=== PATIENT | female | born 1960 | race Caucasian/White ===

== ENCOUNTER 2019-12-27 08:30 | Outpatient (REF) | payer OTHER, SELFPAY | END 2019-12-27 08:31 | disposition home or self-care (01) | LOC: HO.LAB 08:30 | PROVIDERS: PCP Internal Medicine; Visit Provider Internal Medicine | DX: Z20.828 Contact with and (suspected) exposure to other viral communicable diseases (principal) | CPT/HCPCS: C9803; U0003 ==

== ENCOUNTER → 2020-01-03 07:47 | Outpatient (REF) | payer OTHER, SELFPAY ==
--- NOTE | 2020-01-03 | CA_ITS ---
Acquisition Time: 2020-01-03 09:20:28 Total Exercise Time: 00:08:03 Test Indications: CP Medications: SEE CHART Protocol: MEMO Max HR: 139 BPM 86% of Pred: 161 BPM Max BP: 138/082 mmHG Max Work Load: 10.1 METS Exercise stress test using Memo protocol. total of 8 min 3 sec. METS10.1, MHR up to 86 %. Pt tolerated well. Denies any anginal sx. EKG without any arrhythmias, no ischemic changes seen during exercise or in recovery period. Normotensive response to exercise, Test reviewed with Dr. Hood. Referred By: Jenny Mcbride Overread By: Felicity Giraldo
== END ==
LOC: HO.CARD 07:47
PROVIDERS: PCP Internal Medicine; Visit Provider Nurse Practitioner Family
DX: R07.89 Other chest pain (principal)
CPT/HCPCS: 93017

== ENCOUNTER 2020-05-10 09:45 | Outpatient (REF) | payer OTHER, SELFPAY ==
[2020-05-10 14:24] LABS: SARS COV2 PCR INHOUSE POSITIVE (Negative)
== END 2020-05-10 09:46 | disposition home or self-care (01) ==
LOC: HO.LAB 09:45
PROVIDERS: Visit Provider Internal Medicine
DX: Z20.822 Contact with and (suspected) exposure to COVID-19 (principal)
CPT/HCPCS: C9803; U0003

== ENCOUNTER → 2020-09-16 13:00 | Outpatient (BNVA) | payer OTHER, SELFPAY | PROVIDERS: Visit Provider Orthopaedic Surgery ==

== ENCOUNTER 2020-11-26 13:30 | Outpatient (RCR) | payer OTHER, SELFPAY | END 2020-12-20 11:44 | disposition home or self-care (01) | LOC: HO.OT 13:30 | PROVIDERS: Visit Provider Nurse Practitioner Family | DX: M79.642 Pain in left hand (principal); M79.641 Pain in right hand; M77.8 Other enthesopathies, not elsewhere classified | CPT/HCPCS: 97035; 97110; 97140; 97165 ==

== ENCOUNTER 2021-07-29 09:40 | Day surgery (SDC) | payer OTHER, SELFPAY ==
[2021-07-23 09:50] VITALS: BMI 25.9
--- NOTE | 2021-07-28 09:13 | P.CONAN_ITS ---
Documented by User: Edith Marsh NP 07/28/21 09:14 HPI - Anesthesia Eval Consult details Narrative: 61[facility] Past Medical History Medical History (Updated 07/23/21 @ 09:52 by Sara Cordero RN) Asthma COVID-19 vaccine series completed DJD (degenerative joint disease) GERD (gastroesophageal reflux disease) Glaucoma History of COVID-19 HTN (hypertension) Surgical History Surgical History (Updated 07/23/21 @ 09:52 by Sara Cordero RN) H/O colonoscopy History of esophagogastroduodenoscopy (EGD) History of laparoscopic appendectomy Hx of breast augmentation Hx of cosmetic surgery Social History Social History (Updated 07/23/21 @ 09:26 by Sara Cordero RN) Household Members: Spouse Are you a primary hemodialysis patient care specialist to a significant other at home: No Do you presently have visiting nurse or other home services: No Patient Tobacco Use Status: Never used Tobacco Use of substances other than those prescribed or required for medical reasons: No Have you been hit, kicked, punched, or otherwise hurt by someone within the past year? If so, by whom?: No Are you DNR?: No Advance Directives: No Advance Directives Information Provided: Yes (brochure mailed) Advance Directives on File: No Recently lost weight without trying: No Eating poorly because of decreased appetite: No Nutrition Risks: No Nutritional Risk Poor oral hygiene: No Meds Allergies Allergy/AdvReac Type Severity Reaction Status Date / Time moxifloxacin [From Avelox] Allergy Intermediate Rash Verified 07/23/21 09:50 Home Medications Medication Instructions Recorded Confirmed Last Taken Type albuterol sulfate 90 mcg/actuation 2 puff PO Q4H PRN wheezing 07/23/21 07/23/21 Unknown History aerosol inhaler aspirin 81 mg tablet,delayed 81 mg PO DAILY 07/23/21 07/23/21 Unknown History release atorvastatin 40 mg tablet 1 tab PO DAILY 07/23/21 07/23/21 Unknown History biotin 5,000 mcg sublingual tablet 5,000 mcg sublingual DAILY 07/23/21 07/23/21 Unknown History brimonidine 0.2 %-timolol 0.5 % 1 drp ophthalmic-Right BID 07/23/21 07/23/21 Unknown History eye drops (Combigan) calcium carbonate 600 mg calcium 600 mg PO DAILY 07/23/21 07/23/21 Unknown History (1,500 mg) tablet (Calcium) coenzyme Q10 100 mg capsule (Co 100 mg PO DAILY 07/23/21 07/23/21 Unknown History Q-10) cyanocobalamin (vitamin B-12) 1,000 mcg PO DAILY 07/23/21 07/23/21 Unknown History 1,000 mcg tablet (Vitamin B-12) dicyclomine 20 mg tablet 20 mg PO QID 07/23/21 07/23/21 Unknown History esomeprazole magnesium 40 mg 1 cap PO DAILY 07/23/21 07/23/21 Unknown History capsule,delayed release vitamin A 10,000 unit capsule 10,000 unit PO DAILY 07/23/21 07/23/21 Unknown History Exam Exam Date and Time: July 28, [id number] Height,Weight and Vital Signs: Height 5 ft 1 in Weight 62.142 kg Assessment and Plan Assessment Anesthesia Assessment: Chart Reviewed Documented by User: Tobi Andrade MD 07/29/21 11:37 [facility] Past Medical History Medical History (Updated 07/23/21 @ 09:52 by Sara Cordero RN) Asthma COVID-19 vaccine series completed DJD (degenerative joint disease) GERD (gastroesophageal reflux disease) Glaucoma History of COVID-19 HTN (hypertension) Family History Family history of problems with anesthesia: No Surgical History Surgical History (Updated 07/23/21 @ 09:52 by Sara Cordero RN) H/O colonoscopy History of esophagogastroduodenoscopy (EGD) History of laparoscopic appendectomy Hx of breast augmentation Hx of cosmetic surgery History of Problems with Anesthesia: No Social History Social History (Updated 07/23/21 @ 09:26 by Sara Cordero RN) Household Members: Spouse Are you a primary hemodialysis patient care specialist to a significant other at home: No Do you presently have visiting nurse or other home services: No Patient Tobacco Use Status: Never used Tobacco Use of substances other than those prescribed or required for medical reasons: No Have you been hit, kicked, punched, or otherwise hurt by someone within the past year? If so, by whom?: No Are you DNR?: No Advance Directives: No Advance Directives Information Provided: Yes (brochure mailed) Advance Directives on File: No Recently lost weight without trying: No Eating poorly because of decreased appetite: No Nutrition Risks: No Nutritional Risk Poor oral hygiene: No Meds Allergies Allergy/AdvReac Type Severity Reaction Status Date / Time moxifloxacin [From Avelox] Allergy Intermediate Rash Verified 07/23/21 09:50 Home Medications Medication Instructions Recorded Confirmed Last Taken Type albuterol sulfate 90 mcg/actuation 2 puff PO Q4H PRN wheezing 07/23/21 07/23/21 Unknown History aerosol inhaler aspirin 81 mg tablet,delayed 81 mg PO DAILY 07/23/21 07/23/21 Unknown History release atorvastatin 40 mg tablet 1 tab PO DAILY 07/23/21 07/23/21 Unknown History biotin 5,000 mcg sublingual tablet 5,000 mcg sublingual DAILY 07/23/21 07/23/21 Unknown History brimonidine 0.2 %-timolol 0.5 % 1 drp ophthalmic-Right BID 07/23/21 07/23/21 Unknown History eye drops (Combigan) calcium carbonate 600 mg calcium 600 mg PO DAILY 07/23/21 07/23/21 Unknown History (1,500 mg) tablet (Calcium) coenzyme Q10 100 mg capsule (Co 100 mg PO DAILY 07/23/21 07/23/21 Unknown History Q-10) cyanocobalamin (vitamin B-12) 1,000 mcg PO DAILY 07/23/21 07/23/21 Unknown History 1,000 mcg tablet (Vitamin B-12) dicyclomine 20 mg tablet 20 mg PO QID 07/23/21 07/23/21 Unknown History esomeprazole magnesium 40 mg 1 cap PO DAILY 07/23/21 07/23/21 Unknown History capsule,delayed release vitamin A 10,000 unit capsule 10,000 unit PO DAILY 07/23/21 07/23/21 Unknown History Exam Airway Mallampati Class: II TM Dist: >3cm Neck ROM: Full Assessment and Plan Assessment Anesthesia Assessment: Anesthesia Plan Discussed Final Anesthetic Review Family History of Problems with Anesthesia: No History of Problems with Anesthesia: No NPO: Yes ASA Class: II Final Preanesthetic Review: No Changes in Pt Med Stat, Meds/Allgs Chart Reviewed, Consent Obtained/Reviewed and Anes Risks/Benef Reviewed Patient Risk: Low Procedure Risk: Low Anesthetic Plan Anesthetic Plan: MAC: Disposition: Standard PACU
[2021-07-29 10:24] VITALS: BP 111/60; PULSE 55; RESP 18; TEMP 36.1; O2SAT 98
[2021-07-29] MEDS: Lactated Ringers 1,000 ML 100 ML IVCONT (10:37)
--- NOTE | 2021-07-29 11:41 | MHC.SHP ---
Pre-Procedural Eval Section A Date of Service: 07/29/21 The patient is an INPATIENT: No Changes since office visit: No Cold of Flu in the past 2 weeks, No New Medical Problems, No Changes in Medication and No Patient answered all questions The History & Physical has been completed within 30 days and I have reviewed it.: Yes Section B Chief Complaint: screening Allergies: Allergies Allergy/AdvReac Type Severity Reaction Status Date / Time moxifloxacin [From Avelox] Allergy Intermediate Rash Verified 07/23/21 09:50 Plan I have reviewed the history and physical and performed a pertinent physical examination on my patient. No changes have occurred unless specified.
--- NOTE | 2021-07-29 12:05 | PM.OP ---
Brief Operative Note Date of Service: 07/29/21 Pre-op diagnosis: screening Post-op diagnosis: same (colon polyp) Procedure: colonoscopy Surgeon: Luis Amin Anesthesia: MAC Was an Sign Language Instructor used for this Procedure?: No Estimated blood loss (mL): 2 Pathology: other (polyp x 1) Condition: stable Disposition: PACU
[2021-07-29 12:07] VITALS: BP 120/60; PULSE 68; RESP 16; TEMP 36.6; O2SAT 100
[2021-07-29 12:22] VITALS: BP 137/72; PULSE 58; RESP 16; O2SAT 99
--- NOTE | 2021-07-29 12:24 | OP_ITS ---
SURGEON: Luis Amin MD INDICATIONS: Colon cancer screening. PREOPERATIVE DIAGNOSIS: POSTOPERATIVE DIAGNOSIS: PROCEDURE PERFORMED: Colonoscopy to the terminal ileum with biopsy. ESTIMATED BLOOD LOSS: COMPLICATIONS: ANESTHESIA: ASSISTANTS: SPECIMENS: MEDICATIONS: Monitored anesthesia care. DESCRIPTION OF PROCEDURE: History and physical were performed. The risks and benefits of the procedure were explained to the patient. Informed consent was obtained. The patient was placed in the left lateral decubitus position. A digital rectal exam was performed and was found to be normal. The Olympus pediatric video colonoscope was introduced into the rectum and advanced to the cecum without difficulty. The cecum was identified by transillumination, palpation, and identification of ileocecal valve. Examination was performed and the scope was removed. She tolerated the procedure well and was taken to recovery area in stable condition. FINDINGS: The terminal ileum was normal. The visualized colonic mucosa was within normal limits without evidence of masses or ulcers. A single polyp at 80 cm measuring less than 5 mm was identified, removed with biopsy forceps. No other polyps were seen. There was mild sigmoid diverticulosis. Retroflexed examination showed small internal hemorrhoids. IMPRESSION: Colon polyp. RECOMMENDATION: Follow up biopsy results. MD AMINTA Cox/TIBURCIO / [id number]
== END 2021-07-29 12:45 | disposition home or self-care (01) ==
PROVIDERS: PCP Internal Medicine; Visit Provider Internal Medicine Gastroenterology
PROC: 0DJD8ZZ Inspection of Lower Intestinal Tract, Via Natural or Artificial Opening Endoscopic (ICD-10-PCS; CPT 45378; principal; 2021-07-29 11:00)
DX: Z12.11 Encounter for screening for malignant neoplasm of colon (principal); D12.4 Benign neoplasm of descending colon; K57.30 Diverticulosis of large intestine without perforation or abscess without bleeding; K64.8 Other hemorrhoids; K21.9 Gastro-esophageal reflux disease without esophagitis; J45.909 Unspecified asthma, uncomplicated; I10 Essential (primary) hypertension; Z79.899 Other long term (current) drug therapy; Z86.16 Personal history of COVID-19
CPT/HCPCS: 45380; 88305

== ENCOUNTER 2021-08-13 18:05 | Outpatient (REF) | payer OTHER, SELFPAY ==
--- NOTE | ~2021-08-13 | MR_ITS ---
EXAMINATION: MRA HEAD WITHOUT CONTRAST CLINICAL INFORMATION: Follow-up aneurysm. Patient states family history of aneurysms. COMPARISON: None TECHNIQUE: MRA of the head was performed without contrast utilizing 3-D [id number] technique. FINDINGS: No intracranial aneurysm is seen. The intracranial internal carotid arteries appear normal. The anterior cerebral artery, anterior communicating artery, and middle cerebral arteries appear normal. The intradural vertebral arteries and basilar artery appear normal. The posterior cerebral arteries appear normal. On the source images, there is no abnormal arterialized flow. There is no mass effect or midline shift. MR/MR angio head wo con IMPRESSION: No aneurysm identified. If there is a prior documented aneurysm and the prior imaging is uploaded, a comparison can be made and an addendum issued.
== END 2021-08-13 18:06 | disposition home or self-care (01) ==
LOC: HO.MRI 18:05
PROVIDERS: Visit Provider Internal Medicine
DX: Z13.858 Encounter for screening for other nervous system disorders (principal); Z82.49 Family history of ischemic heart disease and other diseases of the circulatory system
CPT/HCPCS: 70544

== ENCOUNTER 2022-08-19 14:09 | Outpatient (REF) | payer OTHER, SELFPAY ==
--- NOTE | ~2022-08-19 | CT_ITS ---
EXAMINATION: CT HEAD WITHOUT CONTRAST CLINICAL INFORMATION: Dizziness and giddiness. COMPARISON: CT head from 11/01/2009. TECHNIQUE: Contiguous axial imaging was performed from the skull base to vertex without intravenous administration of contrast. This CT examination was performed using dose optimization techniques as appropriate, variously including the following: *Automated exposure control. *Adjustment of mA and/or kV according to patient size (this includes techniques or standardized protocols for targeted exams where dose is matched to indication/reason for exam; i.e. extremities or head). *Use of iterative reconstruction technique. DLP: 654 mGy-cm FINDINGS: There is no evidence of acute intracranial hemorrhage or edematous territorial infarction. Do-white matter differentiation is preserved. A few foci of hypoattenuation in the periventricular and deep white matter are consistent with mild microangiopathy. The ventricles are normal in morphology and size. No evidence for obstructive hydrocephalus. The cerebellar tonsils are positioned at the level the foramen magnum. No abnormal mass effect or midline shift. No extra-axial fluid collections. No acute soft tissue or osseous abnormalities. Mild mucosal thickening of the paranasal sinuses. The mastoid air cells and middle ear cavities are clear. Right-sided lens extraction. Right-sided elongated macrophthalmia. CT/CT head/brain wo IV con IMPRESSION: 1. No evidence of acute intracranial hemorrhage or edematous territorial infarction. 2. Mild underlying microangiopathy.
== END 2022-08-19 14:10 | disposition home or self-care (01) ==
LOC: HO.CT 14:09
PROVIDERS: PCP Internal Medicine; Visit Provider Internal Medicine
DX: R42 Dizziness and giddiness (principal); R51.9 Headache, unspecified
CPT/HCPCS: 70450

== ENCOUNTER 2023-08-20 10:11 | Day surgery (SDC) | payer BC, SELFPAY ==
[2023-08-18 12:22] VITALS: BMI 26.8
[2023-08-20 10:23] VITALS: BP 160/74; PULSE 76; RESP 18; TEMP 36.3; O2SAT 98; BMI 27.2
[2023-08-20] MEDS: Lactated Ringers 1,000 ML 50 ML IVCONT (10:41)
--- NOTE | 2023-08-20 10:41 | PC.NURSE ---
DR HARDEN AT BEDSIDE PT STS NO SOB NO C/P NSR ON THE MONITOR GOING OVER PATIENTS HX
--- NOTE | 2023-08-20 10:44 | ECG_ITS ---
Test Reason : pre op Blood Pressure : / mmHG Vent. Rate : 070 BPM Atrial Rate : 070 BPM P-R Int : 128 ms QRS Dur : 086 ms QT Int : 412 ms P-R-T Axes : 021 059 080 degrees QTc Int : 444 ms Normal sinus rhythm Nonspecific T wave abnormality Abnormal ECG When compared with ECG of 22-JUL-2009 13:21, Nonspecific T wave abnormality now evident in Anterolateral leads Referred By: Tobi Andrade Electronically Signed By:Shaun Bahena
--- NOTE | 2023-08-20 10:46 | P.CONAN_ITS ---
[facility] Past Medical History Medical History (Updated 08/20/23 @ 10:44 by Saba Chicas RN) Blockage of coronary artery of heart Glaucoma DJD (degenerative joint disease) HTN (hypertension) Asthma GERD (gastroesophageal reflux disease) Family History Family history of problems with anesthesia: No Surgical History Surgical History (Updated 08/18/23 @ 12:26 by Sara Cordero RN) Hx of breast augmentation History of laparoscopic appendectomy Hx of cosmetic surgery History of esophagogastroduodenoscopy (EGD) H/O colonoscopy History of Problems with Anesthesia: No Social History Social History (Updated 07/23/21 @ 09:26 by Sara Cordero RN) Household Members: Spouse Are you a primary senior care manager to a significant other at home: No Do you presently have visiting nurse or other home services: No Patient Tobacco Use Status: Never used Tobacco Are you DNR?: No Advance Directives: No Advance Directives Information Provided: Yes Nutrition Risks: No Nutritional Risk Meds Allergies Allergy/AdvReac Type Severity Reaction Status Date / Time moxifloxacin [From Avelox] Allergy Intermediate Rash Verified 07/23/21 09:50 Active Medications: Current Medications Lactated Ringer's (Lr) 1,000 mls @ 50 mls/hr IVCONT .Q20H HOMAR Last Admin: 08/20/23 10:41 Dose: 50 mls/hr Home Medications ?Medication ?Instructions ?Recorded ?Confirmed ?Last Taken ?Type albuterol sulfate 90 mcg/actuation 2 puff PO Q4H PRN wheezing 07/23/21 08/18/23 Unknown History aerosol inhaler aspirin 81 mg tablet,delayed 81 mg PO DAILY 07/23/21 08/18/23 Unknown History release atorvastatin 40 mg tablet 1 tab PO DAILY 07/23/21 08/18/23 Unknown History brimonidine 0.2 %-timolol 0.5 % 1 drp ophthalmic-Right BID 07/23/21 08/18/23 Unknown History eye drops (Combigan) cyanocobalamin (vitamin B-12) 1,000 mcg PO DAILY 07/23/21 08/18/23 Unknown History 1,000 mcg tablet (Vitamin B-12) pantoprazole 40 mg tablet,delayed 40 mg PO DAILY 08/18/23 08/18/23 Unknown History release Exam Height,Weight and Vital Signs: Height 5 ft 1 in Weight 65.3 kg Last Vital Signs Temp 97.4 F 08/20/23 10:23 Pulse 76 08/20/23 10:23 Resp 18 08/20/23 10:23 BP 160/74 H 08/20/23 10:23 Pulse Ox 98 08/20/23 10:23 O2 Del Method Room Air 08/20/23 10:23 Airway Mallampati Class: II TM Dist: >3cm Neck ROM: Full Assessment and Plan Assessment Anesthesia Assessment: Anesthesia Plan Discussed and Chart Reviewed Final Anesthetic Review Family History of Problems with Anesthesia: No History of Problems with Anesthesia: No NPO: Yes ASA Class: III Final Preanesthetic Review: No Changes in Pt Med Stat, Meds/Allgs Chart Reviewed, Consent Obtained/Reviewed and Anes Risks/Benef Reviewed Patient Risk: Intermediate Procedure Risk: Low Anesthetic Plan Anesthetic Plan: TIVA Disposition: Standard PACU
--- NOTE | 2023-08-20 11:10 | PC.NURSE ---
OKAY TO PROCEED PER DR HARDEN EKG PERFORMED
--- NOTE | 2023-08-20 11:12 | MHC.SHP ---
Pre-Procedural Eval Section A - 24 Hr Update-Section A only Date of Service: 08/20/23 The patient is an INPATIENT: No Changes since office visit: No Cold of Flu in the past 2 weeks, No New Medical Problems, No Changes in Medication and No Patient answered all questions The patient has been examined within 24 hours of the surgical procedure. The History & Physical has been completed within 30 days and I have reviewed it.: Yes Section B - Complete if H&P > 30 days Chief Complaint: Gastro-esophageal reflux disease with esophagitis Allergies: Allergies Allergy/AdvReac Type Severity Reaction Status Date / Time moxifloxacin [From Avelox] Allergy Intermediate Rash Verified 07/23/21 09:50 Plan I have reviewed the history and physical and performed a pertinent physical examination on my patient. No changes have occurred unless specified. Time Spent With Patient Time: Total time managing care of this patient today ____ minutes.
[2023-08-20 11:42] VITALS: BP 132/72; PULSE 76; RESP 12; TEMP 36.6; O2SAT 96
[2023-08-20 11:57] VITALS: BP 129/91; PULSE 69; RESP 12; TEMP 36.6; O2SAT 98
--- NOTE | 2023-08-20 12:10 | OP_ITS ---
DATE OF SERVICE: 08/20/2023 SURGEON: Luis Amin MD INDICATIONS: Gastroesophageal reflux disease. PREOPERATIVE DIAGNOSIS: POSTOPERATIVE DIAGNOSIS: PROCEDURE PERFORMED: Upper endoscopy with biopsy. ESTIMATED BLOOD LOSS: COMPLICATIONS: ANESTHESIA: Monitored anesthesia care. ASSISTANTS: SPECIMENS: DESCRIPTION OF PROCEDURE: A history and physical was performed. The risks and benefits of the procedure were explained to the patient and informed consent was obtained. The patient was placed in the left lateral decubitus position. The Olympus video gastroscope was introduced into the esophagus, stomach, and duodenum. Examination was performed and the scope was removed. She tolerated the procedure well and was returned to recovery area in stable condition. FINDINGS: Esophagus: The esophagus was normal. There was an irregular EG junction. There was no esophagitis. Biopsies were obtained from the EG junction. Stomach: The stomach showed no evidence of masses, ulcers, or polyps. The mucosa appeared normal. The antral biopsies were obtained to evaluate for H pylori. Duodenum: The bulb and 2nd portion were both normal. The major papilla was visualized. Biopsies were obtained from the 2nd portion of the duodenum. IMPRESSION: Gastroesophageal reflux disease. RECOMMENDATION: Follow up the biopsy results. MD AMINTA Cox/TIBURCIO / [id number]
== END 2023-08-20 12:30 | disposition home or self-care (01) ==
PROVIDERS: PCP Student in an Organized Health Care Education/Training Program; Visit Provider Internal Medicine Gastroenterology
PROC: 0DJ08ZZ Inspection of Upper Intestinal Tract, Via Natural or Artificial Opening Endoscopic (ICD-10-PCS; CPT 43235; principal; 2023-08-20 11:40)
DX: K21.00 Gastro-esophageal reflux disease with esophagitis, without bleeding (principal); K22.9 Disease of esophagus, unspecified; K29.50 Unspecified chronic gastritis without bleeding; I10 Essential (primary) hypertension
CPT/HCPCS: 43239; 88305; 88313; 88342; 93005; J2704

== ENCOUNTER → 2023-08-20 10:44 | Outpatient (BNV) | payer BC, SELFPAY | PROVIDERS: PCP Student in an Organized Health Care Education/Training Program; Visit Provider Internal Medicine Cardiovascular Disease | DX: R94.31 Abnormal electrocardiogram [ECG] [EKG] (principal) | CPT/HCPCS: 93010 ==

== ENCOUNTER 2023-09-30 14:18 | Emergency (ER) | payer BC, SELFPAY ==
--- NOTE | ~2023-09-30 | XR_ITS ---
RADIOGRAPH LEFT ANKLE AND LEFT FOOT CLINICAL HISTORY: Injury, swelling. COMPARISON: No relevant prior studies are available for comparison. TECHNIQUE: 2 views of the left ankle and 3 views of the left foot. FINDINGS: Soft tissue swelling adjacent to the lateral malleolus. No discrete osseous fractures or dislocation. No unexpected radiopaque foreign bodies. 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 XR/XR ankle LT min 3V IMPRESSION: Soft tissue swelling adjacent to the lateral malleolus. No discrete osseous fractures or dislocation. Electronically signed by: Penelope Romero MD 09/30/2023 04:43 PM EDT
--- NOTE | ~2023-09-30 | XR_ITS ---
RADIOGRAPH LEFT ANKLE AND LEFT FOOT CLINICAL HISTORY: Injury, swelling. COMPARISON: No relevant prior studies are available for comparison. TECHNIQUE: 2 views of the left ankle and 3 views of the left foot. FINDINGS: Soft tissue swelling adjacent to the lateral malleolus. No discrete osseous fractures or dislocation. No unexpected radiopaque foreign bodies. 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 XR/XR foot LT min 3V IMPRESSION: Soft tissue swelling adjacent to the lateral malleolus. No discrete osseous fractures or dislocation. Electronically signed by: Penelope Romero MD 09/30/2023 04:43 PM EDT
[2023-09-30 14:46] VITALS: BP 141/79; PULSE 77; RESP 18; TEMP 36.6; O2SAT 97; BMI 27.3
--- NOTE | 2023-09-30 14:48 | ED.LOWEXIN ---
HPI - Extremity Injury (Lower) General Chief Complaint: Extremity Injury, Lower Stated Complaint: fall Time Seen by Provider: 09/30/23 15:41 Source: patient Mode of arrival: wheelchair Limitations: no limitations History of Present Illness ED Provider: Christopher Doan PA-C HPI Narrative: 63-year-old female presents to the ER for evaluation of left lateral ankle pain and swelling after she missed the last step while walking down the stairs at her house around 230 today. She reports significant pain with ambulation and movement of the left foot and ankle. Denies any numbness or tingling to the area. She feels like the left foot is weak. She did not hit her head or lose consciousness. She is not on blood thinners. MD complaint: ankle injury Onset (ago): hour(s) Injury: Left: ankle Type of Injury: blunt and inversion Place: home Severity: moderate Relieving factors: immobilization and rest Exacerbating factors: weight bearing, movement and palpation Context: fall Associated symptoms: able to partially bear weight Other symptoms: none Related Data Home Medications ?Medication ?Instructions ?Recorded ?Confirmed albuterol sulfate 90 mcg/actuation 2 puff PO Q4H PRN wheezing 07/23/21 08/18/23 aerosol inhaler aspirin 81 mg tablet,delayed 81 mg PO DAILY 07/23/21 08/18/23 release atorvastatin 40 mg tablet 1 tab PO DAILY 07/23/21 08/18/23 brimonidine 0.2 %-timolol 0.5 % 1 drp ophthalmic-Right BID 07/23/21 08/18/23 eye drops (Combigan) cyanocobalamin (vitamin B-12) 1,000 mcg PO DAILY 07/23/21 08/18/23 1,000 mcg tablet (Vitamin B-12) pantoprazole 40 mg tablet,delayed 40 mg PO DAILY 08/18/23 08/18/23 release Previous Rx's ?Medication ?Instructions ?Recorded ibuprofen 600 mg tablet 600 mg PO Q8H PRN pain #14 tabs 09/30/23 Allergies Allergy/AdvReac Type Severity Reaction Status Date / Time moxifloxacin [From Avelox] Allergy Intermediate Rash Verified 09/30/23 14:48 Review of Systems Review of Systems: Yes all other systems are reviewed and are negative PMFSH Past Medical History Medical History (Updated 09/30/23 @ 16:52 by NEVILLE Gardner) Blockage of coronary artery of heart Glaucoma DJD (degenerative joint disease) HTN (hypertension) Asthma GERD (gastroesophageal reflux disease) Surgical History (Updated 08/18/23 @ 12:26 by Sara Cordero RN) Hx of breast augmentation History of laparoscopic appendectomy Hx of cosmetic surgery History of esophagogastroduodenoscopy (EGD) H/O colonoscopy Social History Social History (Updated 07/23/21 @ 09:26 by Sara Cordero RN) Household Members: Spouse Are you a primary child care teacher to a significant other at home: No Do you presently have visiting nurse or other home services: No Patient Tobacco Use Status: Never used Tobacco Advance Directives: No Advance Directives Information Provided: No Physical Exam Vital Signs: Vital Signs: Last Vital Signs Temp 97.9 F 09/30/23 17:32 Pulse 77 09/30/23 17:32 Resp 18 09/30/23 17:32 BP 141/79 H 09/30/23 17:32 Pulse Ox 97 09/30/23 17:32 O2 Del Method Room Air 09/30/23 17:32 BMI result Body Mass Index 27.3 Appearance: Alert. Oriented X3. No acute distress. HEENT: normal inspection CVS: Normal heart rate and rhythm. Pulses normal. Respiratory: No respiratory distress. Skin: Skin warm and dry. Normal skin color. Normal skin turgor. No rashes. Extremities: Left lateral ankle with moderate swelling to the lateral malleolus with associated tenderness. Nontender and non swollen medial malleolus. Significant pain and limited range of motion of the left foot with plantar flexion and dorsiflexion. Mild tenderness of the 4th and 5th metatarsals. Foot is warm and well perfused, 2+ DP pulse. Neuro: Oriented X 3. No motor deficit. No sensory deficit. Course Course Course Narrative: This is a Rapid Medical Examination (RME) performed by Les Ceballos PA-C in triage. Full HPI, ROS, assessment and treatment plan per primary provider in the Main ED. 63 yo female here for eval of left ankle pain/ swelling s/p missing the last step while going down the stairs [employer] in ED. Denies head strike or LOC. not on AC. + noted swelling to L ankle w/ limited ROM d/t swelling. able to move all toes. 2+ PT/DP pulse. Plan: xrs Medical Decision Making Medical Decision Making MDM Narrative: 63-year-old female presents to the ER for evaluation of left lateral ankle pain and swelling after she tripped walking down stairs, she missed the lower 2 steps. She not hit her head or lose consciousness. Only injuries in the left ankle and foot. She is able to ambulate on it but with severe pain. X-rays did not show any acute fractures. Will treat for acute ankle sprain with compression, weight-bearing as tolerated, crutches provided, NSAIDs, rice therapy. She is stable for discharge home with supportive care. She is comfortable using crutches at home. Differential Diagnosis Differential Diagnoses: The differential diagnosis associated with the presentation includes Ankle fracture, ankle sprain, foot fracture, foot contusion Independent Interpretation I performed an independent interpretation of an: Plain X-Ray Interpretation: No appreciated fracture of the ankle or foot, agree with radiology read Radiology Impression Discussion of test interpretation with radiology: I have reviewed the radiologist's reading. Radiologist Impression: RADIOGRAPH LEFT ANKLE AND LEFT FOOT CLINICAL HISTORY: Injury, swelling. COMPARISON: No relevant prior studies are available for comparison. TECHNIQUE: 2 views of the left ankle and 3 views of the left foot. FINDINGS: Soft tissue swelling adjacent to the lateral malleolus. No discrete osseous fractures or dislocation. No unexpected radiopaque foreign bodies. 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 XR/XR foot LT min 3V IMPRESSION: Soft tissue swelling adjacent to the lateral malleolus. No discrete osseous fractures or dislocation. External Record Review External record reviewed: Prior outpatient labs Prescription Management I considered prescription management with: Pain Medication Critical Care Time Critical Care Time Critical Care Time: No Discharge Plan Discharge Clinical Impression: Ankle sprain and strain Patient Disposition: Home, Self-Care Instructions: Ankle Sprain (DC) Additional Instructions: Your x-ray today did not show any broken bones, just soft tissue swelling. Rest your ankle and elevate your foot .. Recommend YNES wrap for support and compression to help bring down the swelling. Use ice several times per day for the next 48 hours. You may bear weight as tolerated. If pain is too severe, use crutches until better. Take Motrin and/or Tylenol as needed for pain. Follow up with your doctor as needed. Prescriptions: New ibuprofen 600 mg tablet 600 mg PO Q8H PRN (Reason: pain) Qty: 14 0RF No Action atorvastatin 40 mg tablet 1 tab PO DAILY cyanocobalamin (vitamin B-12) [Vitamin B-12] 1,000 mcg Tablet 1,000 mcg PO DAILY aspirin 81 mg Tablet,Delayed Release (Dr/Ec) 81 mg PO DAILY albuterol sulfate 90 mcg/actuation HFA aerosol inhaler 2 puff PO Q4H PRN (Reason: wheezing) brimonidine-timolol [Combigan] 0.2-0.5 % drops 1 drp ophthalmic-Right BID pantoprazole 40 mg Tablet,Delayed Release (Dr/Ec) 40 mg PO DAILY Interventions: ED Discharge Assessment Last Done: 09/30/23 17:32 Discharge Date/Time: 09/30/23 17:33 Print Language: Indonesian
[2023-09-30 17:32] VITALS: BP 141/79; PULSE 77; RESP 18; TEMP 36.6; O2SAT 97
== END 2023-09-30 17:33 | disposition home or self-care (01) ==
PROVIDERS: Emergency Provider Emergency Medicine; PCP Student in an Organized Health Care Education/Training Program
DX: S93.402A Sprain of unspecified ligament of left ankle, initial encounter (principal); S96.912A Strain of unspecified muscle and tendon at ankle and foot level, left foot, initial encounter; W10.8XXA Fall (on) (from) other stairs and steps, initial encounter; Y93.89 Activity, other specified; Y92.9 Unspecified place or not applicable; Y99.9 Unspecified external cause status
CPT/HCPCS: 73610; 73630; 99283

== ENCOUNTER 2024-07-11 09:45 | Outpatient (AMB) | payer BC, SELFPAY ==
--- NOTE | 2024-07-11 09:48 | MHC.PC.OV ---
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 Intake Note: New patient to establish care Furnishings Conservator Required: No Allergies moxifloxacin [From Avelox] Allergy (Intermediate, Verified 07/11/24 10:13) Rash Medication List - Last Reconciled 07/11/24 by Shani James, ASBESTOS MICROSCOPIST- albuterol sulfate 2.5 mg (3 mL) inhalation Q4-6H PRN albuterol sulfate 90 mcg/actuation 2 puffs PO Q4H PRN anastrozole 1 mg PO DAILY aspirin 81 mg PO DAILY atorvastatin 40 mg PO DAILY clotrimazole-betamethasone 1-0.05 % appl topical cyanocobalamin (vitamin B-12) (Vitamin B-12) 1,000 mcg PO DAILY hydrochlorothiazide 12.5 mg PO DAILY ibuprofen 600 mg PO Q8H PRN montelukast (Singulair) 10 mg PO BEDTIME pantoprazole 40 mg PO DAILY Tobacco use date assessed: 07/11/24 Dental Screening Dental Screen Date: 07/11/24 Did you have a dental visit in the last 12 months?: Yes Did you have a dental problem in the last 6 months where you did not have access to dental care?: No Was dental information given to patient?: Patient has dentist HPI HPI Comments History of Present Illness Details 63 y/o F with GERD, Mild underlying microangiopathy. 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 2 children Girls (Dtr Gi and Lelia also my patients) Health Maintenance: Mammo Feb 2024 Tdap reports UTD in 10 years. PVC 20 done 2019 per report Dexa 2024, osteopenia Pap appt w/ lashae scheduled this year EGD Dr Amin 2023 Colon 2021 + polyp, Dr Amin Specialists: [facility]cology at [facility] Daisha Ayala [employer] - [facility] Here today to est care and for CPE: Previous PCP: Dr Manuel, limited MR available and reviewed. States was seen by [facility] more recently - i do not have these records Breast ca - breast ca R (Feb 2024, R breast carcinoma in-situ s/p radiation completed april 2024 and lumpectomy) managed by [facility] Osteopenia DEXA 2024, on Vitamin D. CAD, HTN, HLD: Feb 2023, in [place], dx w CAD, referred to [facility], no chest pain. Denies hx of stenting or cath. On statin and ASA. Asthma - on prn ALICIA only. Has a cough for 1 month. ALICIA doesnt seem to help. Does admit allergy component but not taking any meds at this time. GERD - on PPI with + effect. L ankle injury 10 months ago, cont to cause problems, active with [facility], appt next week. Joint pain and facial rash. Did see Derm, told eczema, she is worred about lupus. Review of Systems - General: Reports recent significant weight loss - Cardiovascular: Reports coronary artery disease with known arterial blockages - Respiratory: Reports a persistent cough over a month and asthma; denies chest pain but notes breathing issues previously - Gastrointestinal: Reports GERD managed with medication - Dermatological: Reports dermatitis with persistent rash - Musculoskeletal: Reports left ankle pain following an injury, chronic osteopenia; has chronic anterior rib pain for years - Neurological: Denies changes in neurological status - Endocrine: Reports breast cancer and ongoing treatment with Anastrozole - Hematological: History of Vitamin B12 deficiency Physical Exam General: Well developed, well nourished, in no acute distress. Appears stated age. Head: Normocephalic, atraumatic. Eyes: Pupils are equal, round and reactive to light and accommodation. Conjunctivae are clear. Vision grossly normal. Ears: TMs intact w/ clouding AU, EACS WNL Nose: Patent, without discharge. Neck: Supple, no adenopathy or thyromegaly. Breast: Edu on SBE Lungs: Faint exp wheeze throughout, improved with cont breathing, no cough Heart: Regular rate and rhythm. No murmurs, click, rubs or gallops are noted. No carotid bruit bilat Abdomen: Bowel sounds present in all quadrants. The abdomen is soft, nontender, with no masses or organomegaly noted. No hernias are noted. Tenderness noted along the ribs. : Deferred. Reviewed recommendations for routine [employer] Pulses: Peripheral pulses are equal and palpable bilaterally. + varicose veins, skin intact Extremities: No clubbing, cyanosis nor edema is noted. Neurologic: Gait and station normal. Cranial Nerves 2-12 intact. Motor strength grossly symmetrical and intact. No sensory loss. Balance normal. Skin: Dry, pink patches noted on face, No ulcers, or lesions noted. Turgor is good. Skin color is good. Hair and nails are without abnormalities. Psych: Normal eye contact, affect and mood appropriate, and normal interactions. Patient is alert and appropriate to context. Discussion Notes During the visit, we discussed the management plan for the patient?s multiple ongoing health issues. I informed the patient about the importance of maintaining coordination with her oncology team at [facility] for continuous follow-up regarding her breast cancer treatment. Given her recent diagnosis of osteopenia, Viactiv chews OTC recommended, and a repeat bone density test is suggested in two years to monitor progression. For her concerning persistent cough with wheezing, I proposed starting Singulair as an adjunct anti-inflammatory treatment. The patient has been advised to continue using the Albuterol inhaler as needed for acute relief of asthma symptoms. Blood work was suggested to evaluate for lupus due to autoimmune symptomatology, as requested. A referral to [facility] cardiology was confirmed to manage her coronary artery disease. Follow-up for dermatological concerns was also advised. Overall, the patient expressed understanding and agreed with the proposed management plans. Assessment and Plan 1. Essential Hypertension - Continue Hydrochlorothiazide. - Regular monitoring. 2. Hyperlipidemia - Continue Atorvastatin. 3. B12 Deficiency - Maintain B12 1000 mcg daily. 4. GERD - Continue Pantoprazole. 5. Asthma - Start Singulair. - Continue Albuterol. 6. Breast Cancer - Ongoing oncology follow-up for Anastrozole therapy. 7. Osteopenia - Start viactiv otc, re-evaluate in two years. 8. Coronary Artery Disease - Aspirin treatment. - Follow-up with cardiology. 9. Eczema - Ongoing dermatological management. 10. Persistent Cough - Monitor effect of Singulair. 11. Ankle Injury L - Orthopaedic assessment. Patient Instructions - Continue taking all medications as prescribed. - Start taking Singulair as instructed to help with the cough and breathing. - Begin Viactive for your bones. - Monitor your asthma symptoms and use the inhaler as needed. - Follow up with oncology and cardiology as planned. - Complete blood work for lupus evaluation. - Keep appointments with orthopaedics for your ankle. - Stay aware of any new or worsening symptoms and contact the office if needed. - RTO 6 mo routine fu, sooner prn Consent Patient was informed and verbally consented to the use of an ambient scribe for clinic note documentation during this visit. An additional 30 minutes was spent addressing the problem(s) noted at todays visit. This includes time spent before the visit reviewing the chart, time spent during the visit, and time spent after the visit on documentation reviewing laboratory results, diagnostic imaging, medications, performing a medically necessary evaluation, counseling on diagnoses, care coordination, ordering appropriate tests, ordering appropriate medications, review of tests performed by other providers, reporting test results with the patient, communication with other healthcare providers. [facility] Medical History (Updated 07/11/24 @ 10:[address] [facility]) Asthma Blockage of coronary artery of heart Breast cancer (~02/2024) DJD (degenerative joint disease) Eczema GERD (gastroesophageal reflux disease) Glaucoma Heart disease HTN (hypertension) Hx of mammogram (~02/2024) Osteopenia (~2024) Surgical History (Updated 07/11/24 @ 10:[address] [facility]) H/O colonoscopy (~2021) History of esophagogastroduodenoscopy (EGD) History of laparoscopic appendectomy Hx of breast augmentation Hx of breast implants, bilateral (~2007) Hx of cosmetic surgery Family History (Updated 07/11/24 @ 10:11 by Samy Henriquez MA) Father Asthma HTN (hypertension) Cardiovascular disease Mother Asthma HTN (hypertension) High cholesterol Sister Asthma Cardiovascular disease Brother Asthma Cardiovascular disease Social History (Updated 07/11/24 @ 09:49 by Samy Henriquez MA) Household Members: Spouse Both parents involved: No Caregiver staying overnight: No Housing: House Are you a primary account executive healthcare to a significant other at home: No Do you presently have visiting nurse or other home services: No 75 years or older and lives alone: No Alcohol intake: current Alcohol intake frequency: a few times a month Patient Tobacco Use Status: Never used Tobacco e-Cigarette/Vaping Use: Never Used Second Hand Smoke Exposure: No Current occupational status: retired Cognitive needs: No Hearing needs: No Vision needs: Yes (wear glasses) Questionnaire PHQ-9 Over the last 2 weeks, how often have you been bothered by any of the following problems? 1. Little interest or pleasure in doing things: not at all 2. Feeling down, depressed, or hopeless: not at all 3. Trouble falling or staying asleep, or sleeping too much: not at all 4. Feeling tired or having little energy: not at all 5. Poor appetite or overeating: not at all 6. Feeling bad about yourself - or that you are a failure or have let yourself or your family down: not at all 7. Trouble concentrating on things, such as reading the newspaper or watching television: not at all 8. Moving or speaking so slowly that other people could have noticed. Or the opposite - being so fidgety or restless that you have been moving around a lot more than usual: not at all 9. Thoughts that you would be better off or of hurting yourself in some way: not at all Total score: 0 Depression Screening Interpretation: Negative Depression Screening Done: Yes 39826 - PHQ-9 Billing: Yes Source: Developed by Drs. Mohsen Aranda, Ninfa Barnhart, Jl Raymond and colleagues, with an educational maynor from [employer]. Thrive Questionnaire Date Thrive assessed: 07/11/24 I am a: Patient What is your living situation today?: I have a steady place to live Within the past 12 months, did the food you bought not last and you didn't have the money to get more?: Never true Within the past 12 months, did you worry whether your food would run out before you got money to buy more?: Never true Do you have trouble paying for medicines?: No Do you have trouble getting transportation to medical appointments?: No Do you have trouble paying your heating and electricity bill?: No Do you have trouble taking care of your child, family member or friend?: No Do you have trouble with day-to-day activities such as bathing, preparing meals, shopping, managing finances, etc.?: No Are you currently unemployed and looking for a job?: No Are you interested in more education?: No Please select the resources that you would like help with: None Currently or been in a relationship where the following occur: No concerns reported THRIVE Score: 0 AUDIT C Alcohol Use Questionnaire (AUDIT-C) 1. How often do you have a drink containing alcohol?: Never 2. How many drinks containing alcohol do you have on a typical day when you are drinking?: 1 or 2 3. How often do you have six or more drinks on one occasion?: Never Total Score: 0 Score Reviewed/Action Taken: Yes ROSMERY-7 AMB Questionnaire ROSMERY-7 Date ROSMERY - 7 assessed: 07/11/24 Feeling nervous, anxious, or on edge: 0 = Not at all Not being able to stop or control worryin = Not at all Worrying too much about different things: 0 = Not at all Trouble relaxin = Not at all Being so restless that it is hard to sit still: 0 = Not at all Becoming easily annoyed or irritable: 0 = Not at all Feeling afraid as if something awful might happen: 0 = Not at all Total ROSMERY-7 score (0-4 normal; 5-9 mild; 10-14 moderate; 15-21 severe): 0 Source: Developed by Drs. Mohsen Aranda, Ninfa Barnhart, Jl Raymond and colleagues, with an educational maynor from [employer]. ROSMERY-7 Assessment Billing ROSMERY-7 Assessment Tool: ROSMERY-7 Assessment 72591 ACT Questionnaire In the past 4 weeks, how much of the time did your asthma keep you from getting as much done at work, school or at home?: None of the time During the past 4 weeks, how often have you had shortness of breath?: Not at all During the past 4 weeks, how often did your asthma symptoms wake you up at night or earlier than usual in the morning?: Not at all During the past 4 weeks, how often have you had to use your rescue inhaler or nebulizer medication?: Not at all How would you rate your asthma control during the past 4 weeks?: Completely controlled ACT Interpretation: Negative Score: 25 Physical exam (Primary Care) Vital Signs: Last Vital Signs Temp 97.2 F 07/11/24 10:01 Pulse 74 07/11/24 10:01 Resp 13 07/11/24 10:01 BP 149/89 H 07/11/24 10:01 Pulse Ox 99 07/11/24 10:01 Oxygen Delivery Method Room Air 07/11/24 10:01 BMI result Body Mass Index 27.9 Tobacco/Smoking Status: Tobacco use Status Tobacco use date assessed 07/11/24 07/11/24 09:51 Patient Tobacco Use Status Never used Tobacco 07/11/24 09:51 e-Cigarette/Vaping Use Never Used 07/11/24 09:51 PHQ-9: PHQ-9 Score PHQ-9: Total score 0 07/11/24 09:51 Depression Screening Interpretation: Negative Thrive Assessment: Date of Thrive Assessment Date Thrive assessed 07/11/24 07/11/24 09:51 Currently or been in a relationship where the following occur: No concerns reported Coding Level of Care Code New Pt Level 3 (47936) Est Pt Prev Care 40-64y(42512) Diagnoses Encounter to establish care Z76.89 Chronic GERD K21.9 Mixed hyperlipidemia E78.2 Hyperlipidemia type: mixed hyperlipidemia Microangiopathy I73.9 Mild intermittent asthma without complication J45.20 Asthma complication type: uncomplicated Malignant neoplasm of right female breast, unspecified estrogen receptor status, unspecified site of breast C50.911 Breast location: unspecified site of breast Estrogen receptor status: unspecified Patient sex: female Laterality: right Osteopenia, unspecified location M85.80 Osteopenia location: unspecified Coronary artery disease involving chicken [place] coronary artery of [place] heart without angina pectoris I25.10 Coronary Disease-Associated Artery/Lesion type: [place] artery [place] vs. transplanted heart: [place] heart Associated angina: without angina Primary hypertension I10 Hypertension type: primary hypertension Facial rash R21 Arthralgia of both hands M25.541; M25.542 Joint pain location: hand Laterality: bilateral Encounter for general adult medical examination with abnormal findings Z00.01 Additional Codes ROSMERY-7 Assessment Billing - ROSMERY-7 Assessment Tool: ROSMERY-7 Assessment 73060 ([id number]) PHQ-9 - 08756 - PHQ-9 Billing: Yes ([id number]) Asthma Control Questionnaire - ACT Interpretation: Negative ([id number]) Assessment & Plan Assessment & Plan (1) Encounter to establish care: Code(s): Z76.89 - Persons encountering health services in other specified circumstances (2) Chronic GERD: Code(s): K21.9 - Gastro-esophageal reflux disease without esophagitis Category: Medical (3) Hyperlipidemia: Code(s): E78.5 - Hyperlipidemia, unspecified Category: Medical Qualifiers: Hyperlipidemia type: mixed hyperlipidemia Qualified Code(s): E78.2 - Mixed hyperlipidemia (4) Microangiopathy: Comment: Mild underlying microangiopathy. (brain CT 2022) on statin Code(s): I73.9 - Peripheral vascular disease, unspecified Category: Medical (5) Mild intermittent asthma: Code(s): J45.20 - Mild intermittent asthma, uncomplicated Category: Medical Qualifiers: Asthma complication type: uncomplicated Qualified Code(s): J45.20 - Mild intermittent asthma, uncomplicated (6) Breast cancer: Onset Date: ~02/2024 Comment: managed by Lashae Mota breast carcinoma in-situ s/p radiation completed april 2024 and lumpectomy On anastrazole Code(s): C50.919 - Malignant neoplasm of unspecified site of unspecified female breast Category: Medical Qualifiers: Breast location: unspecified site of breast Estrogen receptor status: unspecified Patient sex: female Laterality: right Qualified Code(s): C50.911 - Malignant neoplasm of unspecified site of right female breast (7) Osteopenia: Onset Date: ~2024 Comment: recommend repeat DEXA 2026, start Viactiv Chews OTC Code(s): M85.80 - Other specified disorders of bone density and structure, unspecified site Category: Medical Qualifiers: Osteopenia location: unspecified Qualified Code(s): M85.80 - Other specified disorders of bone density and structure, unspecified site (8) CAD (coronary artery disease): Code(s): I25.10 - Atherosclerotic heart disease of [place] coronary artery without angina pectoris Category: Medical Qualifiers: Coronary Disease-Associated Artery/Lesion type: [place] artery [place] vs. transplanted heart: [place] heart Associated angina: without angina Qualified Code(s): I25.10 - Atherosclerotic heart disease of [place] coronary artery without angina pectoris (9) HTN (hypertension): Code(s): I10 - Essential (primary) hypertension Category: Medical Qualifiers: Hypertension type: primary hypertension Qualified Code(s): I10 - Essential (primary) hypertension Plan: . (10) Facial rash: Comment: eval by derm in the past dx as eczema she requests lupus labs Code(s): R21 - Rash and other nonspecific skin eruption Category: Medical (11) Joint pain: Code(s): M25.50 - Pain in unspecified joint Category: Medical Qualifiers: Joint pain location: hand Laterality: bilateral Qualified Code(s): M25.541 - Pain in joints of right hand; M25.542 - Pain in joints of left hand Plan: . (12) Encounter for general adult medical examination with abnormal findings: Onset Date: 07/11/24 Code(s): Z00.01 - Encounter for general adult medical examination with abnormal findings Category: Medical Plan . Orders: Orders DENNIS Reflex Titer and Pattern Today E78.5 - Hyperlipidemia, unspecified, I10 - Essential (primary) hypertension, I25.10 - Atherosclerotic heart disease of [place] coronary artery without angina pectoris, I73.9 - Peripheral vascular disease, unspecified, M25.50 - Pain in unspecified joint, M85.80 - Other specified disorders of bone density and structure, unspecified site, R21 - Rash and other nonspecific skin eruption, Z00.00 - Encounter for general adult medical examination without abnormal findings, Z00.01 - Encounter for general adult medical examination with abnormal findings C Reactive Protein Today E78.5 - Hyperlipidemia, unspecified, I10 - Essential (primary) hypertension, I25.10 - Atherosclerotic heart disease of [place] coronary artery without angina pectoris, I73.9 - Peripheral vascular disease, unspecified, M25.50 - Pain in unspecified joint, M85.80 - Other specified disorders of bone density and structure, unspecified site, R21 - Rash and other nonspecific skin eruption, Z00.00 - Encounter for general adult medical examination without abnormal findings, Z00.01 - Encounter for general adult medical examination with abnormal findings Erythrocyte Sedimentation Rate Today E78.5 - Hyperlipidemia, unspecified, I10 - Essential (primary) hypertension, I25.10 - Atherosclerotic heart disease of [place] coronary artery without angina pectoris, I73.9 - Peripheral vascular disease, unspecified, M25.50 - Pain in unspecified joint, M85.80 - Other specified disorders of bone density and structure, unspecified site, R21 - Rash and other nonspecific skin eruption, Z00.00 - Encounter for general adult medical examination without abnormal findings, Z00.01 - Encounter for general adult medical examination with abnormal findings Comprehensive Met. Panel Today E78.5 - Hyperlipidemia, unspecified, I10 - Essential (primary) hypertension, I25.10 - Atherosclerotic heart disease of [place] coronary artery without angina pectoris, I73.9 - Peripheral vascular disease, unspecified, M25.50 - Pain in unspecified joint, M85.80 - Other specified disorders of bone density and structure, unspecified site, R21 - Rash and other nonspecific skin eruption, Z00.00 - Encounter for general adult medical examination without abnormal findings, Z00.01 - Encounter for general adult medical examination with abnormal findings Hemoglobin A1c Today E78.5 - Hyperlipidemia, unspecified, I10 - Essential (primary) hypertension, I25.10 - Atherosclerotic heart disease of [place] coronary artery without angina pectoris, I73.9 - Peripheral vascular disease, unspecified, M25.50 - Pain in unspecified joint, M85.80 - Other specified disorders of bone density and structure, unspecified site, R21 - Rash and other nonspecific skin eruption, Z00.00 - Encounter for general adult medical examination without abnormal findings, Z00.01 - Encounter for general adult medical examination with abnormal findings IRON PROFILE Today E78.5 - Hyperlipidemia, unspecified, I10 - Essential (primary) hypertension, I25.10 - Atherosclerotic heart disease of [place] coronary artery without angina pectoris, I73.9 - Peripheral vascular disease, unspecified, M25.50 - Pain in unspecified joint, M85.80 - Other specified disorders of bone density and structure, unspecified site, R21 - Rash and other nonspecific skin eruption, Z00.00 - Encounter for general adult medical examination without abnormal findings, Z00.01 - Encounter for general adult medical examination with abnormal findings TSH reflex Free T4 Today E78.5 - Hyperlipidemia, unspecified, I10 - Essential (primary) hypertension, I25.10 - Atherosclerotic heart disease of [place] coronary artery without angina pectoris, I73.9 - Peripheral vascular disease, unspecified, M25.50 - Pain in unspecified joint, M85.80 - Other specified disorders of bone density and structure, unspecified site, R21 - Rash and other nonspecific skin eruption, Z00.00 - Encounter for general adult medical examination without abnormal findings, Z00.01 - Encounter for general adult medical examination with abnormal findings Vitamin B12 and Folate Today E78.5 - Hyperlipidemia, unspecified, I10 - Essential (primary) hypertension, I25.10 - Atherosclerotic heart disease of [place] coronary artery without angina pectoris, I73.9 - Peripheral vascular disease, unspecified, M25.50 - Pain in unspecified joint, M85.80 - Other specified disorders of bone density and structure, unspecified site, R21 - Rash and other nonspecific skin eruption, Z00.00 - Encounter for general adult medical examination without abnormal findings, Z00.01 - Encounter for general adult medical examination with abnormal findings Vitamin D 25-OH Total Today E78.5 - Hyperlipidemia, unspecified, I10 - Essential (primary) hypertension, I25.10 - Atherosclerotic heart disease of [place] coronary artery without angina pectoris, I73.9 - Peripheral vascular disease, unspecified, M25.50 - Pain in unspecified joint, M85.80 - Other specified disorders of bone density and structure, unspecified site, R21 - Rash and other nonspecific skin eruption, Z00.00 - Encounter for general adult medical examination without abnormal findings, Z00.01 - Encounter for general adult medical examination with abnormal findings 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 Antibodies Today E78.5 - Hyperlipidemia, unspecified, I10 - Essential (primary) hypertension, I25.10 - Atherosclerotic heart disease of [place] coronary artery without angina pectoris, I73.9 - Peripheral vascular disease, unspecified, M25.50 - Pain in unspecified joint, M85.80 - Other specified disorders of bone density and structure, unspecified site, R21 - Rash and other nonspecific skin eruption, Z00.00 - Encounter for general adult medical examination without abnormal findings, Z00.01 - Encounter for general adult medical examination with abnormal findings Anti DNA DS Antibody Today E78.5 - Hyperlipidemia, unspecified, I10 - Essential (primary) hypertension, I25.10 - Atherosclerotic heart disease of [place] coronary artery without angina pectoris, I73.9 - Peripheral vascular disease, unspecified, M25.50 - Pain in unspecified joint, M85.80 - Other specified disorders of bone density and structure, unspecified site, R21 - Rash and other nonspecific skin eruption, Z00.00 - Encounter for general adult medical examination without abnormal findings, Z00.01 - Encounter for general adult medical examination with abnormal findings Complement C3 Today E78.5 - Hyperlipidemia, unspecified, I10 - Essential (primary) hypertension, I25.10 - Atherosclerotic heart disease of [place] coronary artery without angina pectoris, I73.9 - Peripheral vascular disease, unspecified, M25.50 - Pain in unspecified joint, M85.80 - Other specified disorders of bone density and structure, unspecified site, R21 - Rash and other nonspecific skin eruption, Z00.00 - Encounter for general adult medical examination without abnormal findings, Z00.01 - Encounter for general adult medical examination with abnormal findings Complement C4 Today E78.5 - Hyperlipidemia, unspecified, I10 - Essential (primary) hypertension, I25.10 - Atherosclerotic heart disease of [place] coronary artery without angina pectoris, I73.9 - Peripheral vascular disease, unspecified, M25.50 - Pain in unspecified joint, M85.80 - Other specified disorders of bone density and structure, unspecified site, R21 - Rash and other nonspecific skin eruption, Z00.00 - Encounter for general adult medical examination without abnormal findings, Z00.01 - Encounter for general adult medical examination with abnormal findings UA w Microscopic Today E78.5 - Hyperlipidemia, unspecified, I10 - Essential (primary) hypertension, I25.10 - Atherosclerotic heart disease of [place] coronary artery without angina pectoris, I73.9 - Peripheral vascular disease, unspecified, M25.50 - Pain in unspecified joint, M85.80 - Other specified disorders of bone density and structure, unspecified site, R21 - Rash and other nonspecific skin eruption, Z00.00 - Encounter for general adult medical examination without abnormal findings, Z00.01 - Encounter for general adult medical examination with abnormal findings Complete Blood Count no Diff Today E78.5 - Hyperlipidemia, unspecified, I10 - Essential (primary) hypertension, I25.10 - Atherosclerotic heart disease of [place] coronary artery without angina pectoris, I73.9 - Peripheral vascular disease, unspecified, M25.50 - Pain in unspecified joint, M85.80 - Other specified disorders of bone density and structure, unspecified site, R21 - Rash and other nonspecific skin eruption, Z00.00 - Encounter for general adult medical examination without abnormal findings, Z00.01 - Encounter for general adult medical examination with abnormal findings Ferritin Today E78.5 - Hyperlipidemia, unspecified, I10 - Essential (primary) hypertension, I25.10 - Atherosclerotic heart disease of [place] coronary artery without angina pectoris, I73.9 - Peripheral vascular disease, unspecified, M25.50 - Pain in unspecified joint, M85.80 - Other specified disorders of bone density and structure, unspecified site, R21 - Rash and other nonspecific skin eruption, Z00.00 - Encounter for general adult medical examination without abnormal findings, Z00.01 - Encounter for general adult medical examination with abnormal findings Lipid Panel Today E78.5 - Hyperlipidemia, unspecified, I10 - Essential (primary) hypertension, I25.10 - Atherosclerotic heart disease of [place] coronary artery without angina pectoris, I73.9 - Peripheral vascular disease, unspecified, M25.50 - Pain in unspecified joint, M85.80 - Other specified disorders of bone density and structure, unspecified site, R21 - Rash and other nonspecific skin eruption, Z00.00 - Encounter for general adult medical examination without abnormal findings, Z00.01 - Encounter for general adult medical examination with abnormal findings Microalbumin, Random (w Creat) Today E78.5 - Hyperlipidemia, unspecified, I10 - Essential (primary) hypertension, I25.10 - Atherosclerotic heart disease of [place] coronary artery without angina pectoris, I73.9 - Peripheral vascular disease, unspecified, M25.50 - Pain in unspecified joint, M85.80 - Other specified disorders of bone density and structure, unspecified site, R21 - Rash and other nonspecific skin eruption, Z00.00 - Encounter for general adult medical examination without abnormal findings, Z00.01 - Encounter for general adult medical examination with abnormal findings Referrals Hematology & Oncology Referral C50.919 - Malignant neoplasm of unspecified site of unspecified female breast Cardiology Referral E78.5 - Hyperlipidemia, unspecified, I10 - Essential (primary) hypertension, I25.10 - Atherosclerotic heart disease of [place] coronary artery without angina pectoris 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 The purpose of these visits is to: Screen for medical issues Assess your risk for future medical problems Encourage a healthy lifestyle Update vaccinations and other preventive care services Help you get to know your provider in case of an illness Information Even if you feel fine, you should still see your provider for regular checkups. These visits can help you avoid problems in the future. For example, the only way to find out if you have high blood pressure is to have it checked regularly. High blood sugar and high cholesterol levels also may not have any symptoms in the early stages. A simple blood test can check for these conditions. There are specific times when you should see your provider or receive specific health screenings. The [place] Preventive Services Task Force publishes a list of recommended screenings. Below are screening guidelines for women ages 18 to 39. BLOOD PRESSURE SCREENING Your blood pressure should be checked at least once every 3 to 5 years if: Your blood pressure is in the normal range (top number less than 120 mm Hg and bottom number less than 80 mm Hg) You don't have risk factors for high blood pressure Ask your provider if you need your blood pressure checked more often if: The top number is 120 to 129 mm Hg or the bottom number is 70 to 79 mm Hg You have diabetes, heart disease, kidney problems, are overweight, or have certain other health conditions You have a first-degree relative with high blood pressure You are Black You had high blood pressure during a If the top number is 130 mm Hg or greater or the bottom number is 80 mm Hg or greater, this is considered stage 1 hypertension. Schedule an appointment with your provider to learn how you can reduce your blood pressure. Watch for blood pressure screenings in your area. Ask your provider if you can stop in to have your blood pressure checked. BREAST CANCER SCREENING Experts do not agree about the benefits of breast self-exams in finding breast cancer or saving lives. Talk to your provider about what is best for you. A screening mammogram is not recommended for most women under age 40. Your provider may discuss and recommend mammograms, MRI scans, or ultrasounds if you have an increased risk for breast cancer, such as: A mother or sister who had breast cancer at a young age (most often starting screening earlier than the age the close relative was diagnosed) You carry a high-risk genetic marker CERVICAL CANCER SCREENING Cervical cancer screening should start at age 21 years unless your provider advises otherwise. After the first test: Women ages 21 through 29 should have a Pap test every 3 years. Exoprts do not agree on whether HPV testing is recommended for this age group. Women ages 30 through 65 should be screened with either a Pap test every 3 years or the HPV test every 5 years or both tests every 5 years (called cotesting ). Women who have been treated for precancer (cervical dysplasia) should continue to have Pap tests for 20 years after treatment or until age 65, whichever is longer. If you have had your uterus and cervix removed (total hysterectomy), and you have not been diagnosed with cervical cancer or precancer (high grade cervical neoplasia), you do not need cervical cancer screening. CHOLESTEROL SCREENING Cholesterol screening should begin at: Age 45 for women with no known risk factors for coronary heart disease Age 20 for women with known risk factors for coronary heart disease Repeat cholesterol screening should take place: Every 5 years for women with normal cholesterol levels More often if changes occur in lifestyle (including weight gain and diet) More often if you have diabetes, heart disease, kidney problems, or certain other conditions DIABETES SCREENING You should be screened for diabetes starting at age 35 and then repeated every 3 years if you have no risk factors for diabetes. Screening may need to start earlier and be repeated more often if you have other risk factors for diabetes, such as: You have a first degree relative with diabetes. You are overweight or have obesity. You have high blood pressure, prediabetes, or a history of heart disease. Screening for diabetes should be done if you are planning to become and you are overweight and have other risk factors such as high blood pressure. DENTAL EXAM Go to the dentist once or twice every year for an exam and cleaning. Your dentist will evaluate if you need more frequent visits. EYE EXAM Have an eye exam every 5 to 10 years before age 40. If you have vision problems, have an eye exam every 2 years or more often if recommended by your provider. You should have an eye exam that includes an examination of your retina (back of your eye) at least every year if you have diabetes. IMMUNIZATIONS Commonly needed vaccines include: Flu shot: get one every year. COVID-19 vaccine: ask your provider what is best for you. Tetanus-diphtheria and acellular pertussis (Tdap) vaccine: have one at or after age 19 as one of your tetanus-diphtheria vaccines if you did not receive it as an adolescent. Tetanus-diphtheria: have a booster (or Tdap) every 10 years. Varicella vaccine: receive 2 doses if you never had chickenpox or the varicella vaccine. Hepatitis B vaccine: receive 2, 3, or 4 doses, depending on your exact circumstances. Measles, mumps, and rubella (MMR) vaccine: receive 1 to 2 doses if you are not already immune to MMR. Your provider can tell you if you are immune. Ask your provider about the human papillomavirus (HPV) vaccine if: You have not received the HPV vaccine in the past You have not completed the full vaccine series (you should catch up on this shot) Ask your provider if you should receive other immunizations if you have certain health problems that increase your risk for some diseases such as pneumonia. INFECTIOUS DISEASE SCREENING Women who are sexually active should be screened for chlamydia and gonorrhea up until age 25. Women 25 years and older should be screened for chlamydia and gonorrhea if at high risk. Screening for hepatitis C: All adults ages 18 to 79 should get a one-time test for hepatitis C. people should be screened at every . Screening for human immunodeficiency virus (HIV): All people ages 15 to 65 should get a one-time test for HIV. Depending on your lifestyle and medical history, you may also need to be screened for infections such as syphilis and HIV, as well as other infections. PHYSICAL EXAM All adults should visit their provider from time to time, even if they are healthy. The purpose of these visits is to: Screen for disease Assess your risk of future medical problems Encourage a healthy lifestyle Update your vaccinations and other preventive care services Maintain a relationship with a provider in case of an illness Your height, weight, and BMI should be checked at every exam. During your exam, your provider may ask you about: Depression and anxiety Diet and exercise Alcohol and tobacco use Safety issues, such as using seat belts, smoke detectors, and intimate partner violence Your medicines and risk for interactions SKIN SELF-EXAM Your provider may check your skin for signs of skin cancer, especially if you're at high risk, such as if you: Have had skin cancer before Have close relatives with skin cancer Have a weakened immune system OTHER SCREENING Talk with your provider about colon cancer screening if you have a strong family history of colon cancer or polyps, or if you have had inflammatory bowel disease or polyps yourself. Routine bone density screening of women under 40 is not recommended. Walk-In Care (Urgent Care): We Make it Easy Walk-in for urgent medical issues such as: ? Seasonal Allergies ? Insect Bites ? Cough ? Diarrhea ? Acute Asthma Attacks ? Back, Knee or Joint Pain ? Ear Infection ? Fever without a Rash ? Headaches ? Nausea ? [place], Rash or Skin Irritation ? Sore Throat ? Sports Physicals ? Vomiting Most insurances are accepted. Patients do not need to be part of the [facility] to seek care at the walk-in clinic. Locations [facility] , [place] [address] ? [phone] [facility] in [place] provides services to ages 18 and over. Open Wednesday-Wednesday: 8 a.m. to 5 p.m. and Wednesday: 9 a.m. to 3 p.m.* *Hours may vary due to staffing availability. To confirm Walk-In Care hours in [place], please call [phone]. [address] [place] [address] ? [phone] [facility] in [place] provides services to ages 12 and over. Open Wednesday-Wednesday: 8 a.m. to 5 p.m. Hours may vary due to staffing availability. To confirm Walk-In Care hours in [place], please call [phone]. LABORATORY SERVICES: [facility] Lab ? Primary Location [address] [place] [address] Wednesday through Wednesday 6:00 AM ? 5:00 PM Wednesday 7:00 AM ? 11:00 AM* [phone] The [facility] Lab is centrally located near the front entrance of the [facility] for easy outpatient access. Convenient parking is provided for outpatients. *Hours may vary due to staffing availability. To confirm Laboratory hours for any location, please call [phone]. Offsite Location For your convenience, we offer offsite laboratory draw stations at the following locations: [address] [place] [address] ? [facility] [address], [address] Wednesday through Wednesday 7:30 AM ? 1:00 PM* [phone] *Hours may vary due to staffing availability. To confirm Laboratory hours for any location, please call [phone]. [place] [address] Wednesday through Wednesday 6:00 AM ? 3:30 PM* Wednesday 6:30 AM ? 3 PM* [phone] *Hours may vary due to staffing availability. To confirm Laboratory hours for any location, please call [phone]. [address] [facility] Wednesday through Wednesday 7:30 AM ? 4:00 PM* [phone] *Hours may vary due to staffing availability. To confirm Laboratory hours for any location, please call [phone]. [address] [facility] Wednesday through 9:00 AM ? 4:00 PM* *Hours may vary due to staffing availability. To confirm Laboratory hours for any location, please call [phone]. Appointments are not necessary. Walk-ins are welcome. Like all the departments throughout the [facility], our Lab undergoes frequent reviews to ensure the quality and accuracy of test results, and our staff takes special pride in its status as a nationally accredited facility. Patient Portal: ONE PATIENT. ONE RECORD. BETTER CARE. [facility] has a fully integrated, cutting-edge mobile electronic health information system that has revolutionized the way we care for our patients and manage our organization. This system improves communication and coordination enabling us to provide safe, higher-quality care, and an overall positive experience for staff and patients. Our first priority, as always, is to deliver the highest quality care possible. The system is running in the background supporting that priority. This portal is for all [facility] services and practices. If you are experiencing any technical difficulties with enrolling or logging into the Patient Portal please complete the [facility] Patient Portal Technical Support Form. [facility] now offers a new secure on-line interactive tool for patients to review their health information ? ?Patient Portal. This interactive web portal will enable patients and their families to take an active role in their care by providing easy, secure access to their health information via the internet. The Patient Portal provides patients with instant access to their health information, including laboratory results, medications, allergies, demographic information, visit history, and more. In addition to managing their own care, parents and health care proxies with authorized consent will appreciate the ability to access the records of those individuals for whom they provide care. Please note: if you wish to gain access (Proxy) to another patient?s portal, you will be required to come to the Medical Records Department in person at [facility]. Both the patient giving proxy access and the proxy will need to provide photo identification and complete the appropriate authorization. The Patient Portal also allows track their appointments online. The [facility] Patient Portal also saves patients time by allowing them to submit updates to their demographic and contact information prior to their visits. Portal email notifications will also alert patients to any new activity on their portal, such as test results and new appointments. In order to initially enroll in the [facility] Patient Portal, you will need to enter some required information including the following: your [facility] Medical Record number your personal home email address name date of Please note: In order to enroll in the [facility] Patient Portal, we need to have your email address on file in your electronic medical record. ?The email address needs to be specific for one person (yourself) in order for your Portal enrollment to be successful. ?You can update your email address in person with our Registration staff when you are registering for a hospital visit. ?Otherwise, you will need to come to the Health Information Management (Medical Records) Department at [facility]. ?We are open from Wednesday ? Wednesday from 7:30 a.m. ? 4:30 p.m. ?You will be required to present a photo id. Once you have successfully enrolled in the Patient Portal, you will receive a one-time user id and password for the Portal, sent to your email address. ?This will allow you to log into the Patient Portal within 99 hrs and reset your own logon id and password, and define personal security questions. ?Once your permanent login and password have been set, you can log into the [facility] Patient Portal at any time via the blue button above or from the Portal Logon button on any page of the [facility] website. [facility] encourage all of our patients to enroll in Patient Portal as it presents a valuable opportunity for patients and their families to actively participate in their care and stay healthy Welcome to [facility]. ?We look forward to working with you.
[2024-07-11 10:01] VITALS: BP 149/89; PULSE 74; RESP 13; TEMP 36.2; O2SAT 99; BMI 27.9
[2024-07-11 10:40] VITALS: BP 124/76
--- OUTSIDE RECORDS SUMMARY | 2024-07-11 10:54 | XMS_ITS | Encounter Summary ---
Author Organization [facility] Address [address] [place] [address] Care Team Providers Care Collections Officer Name Role Phone Bk Otero MD Primary Care Provider [phone] Reason for Visit * Radiation Therapy (Routine) - Closed Specialty Diagnoses / Procedures Referred By Marline trujillo Referred To Contact Radiation Oncology Diagnoses Invasive ductal carcinoma of breast, female, right (CMS/HCC V24, CMS/HCC V28) Procedures Rad Onc Treatment Planning Simulation Bridget Allen MD [address] [place] [address] Phone: tel: fax: [facility] Radiation Oncology [address] [place] [address] Phone: tel: fax: Referral ID Status Reason Start Date Expiration Date Visits Re quested Visits Authorized [id number] Closed 06/06/2024 09/03/2024 17 17 Encounter Details Date Type Department Care Team (Latest Contact Info) Description 07/06/2024 7:57 AM EDT - 07/06/2024 11:59 PM EDT Hospital Encounter [facility] Radiation Oncology [address] [place] [address] Discharge Disposition: Home or Self Care Social History Tobacco Use Types Packs/Day Years Used Date Smoking Tobacco: Never Smokeless Tobacco: Never Alcohol Use Standard Drinks/Week Comments Not Currently 0 (1 standard drink = 0.6 oz pur e alcohol) Housing Instability Answer Date Recorde d Are you worried that in the next 2 months you may not have stable housing? Patient declined 05/20/2024 Food Access & Nutrition Answer Date Rec orded Do you have access to a vari ety of food including fruits and vegetables? Patient declined 05/20/2024 Health Literacy Answer Date Recorded How often do you need to hav e someone help you when you read instructions, pamphlets, or other written material from your doctor or pharmacy? Never 05/20/2024 Caregiver: How often do you need to have someone help you when you read instructions, pamphlets, or other written material from your doctor or pharmacy? Not on file 05/20/2024 Financial Risk Answer Date Recorded How hard is it for you to pa y for the very basics like food, housing, medical care, and air conditioning / heating? Patient declined 05/20/2024 Transportation Answer Date Recorded Has the lack of transportati on kept you from meetings, work, or from getting things needed for daily living? Patient declined 05/20/2024 Has the lack of transportati on kept you from medical appointments or from getting medications? Patient declined 05/20/2024 Social Isolation Answer Date Recorded How often do you feel lonely or isolated from those around you? Patient declined 05/20/2024 Food Risk Answer Date Recorded Within the past 12 months we worried whether our food would run out before we got money to buy more. Patient declined 025 Within the past 12 months th e food we bought just didn't last and we didn't have money to get more. Patient declined 05/09 Dependent Care Answer Date Recorded Do you need help finding or paying for care for your loved ones. For example, child care attendant school or elderly care for an older adult? Patient declined 05/20/2024 Education Answer Date Recorded Do you think completing more education or training, like finishing a GED, going to college, or learning a trade, would be helpful for you? Patient declined 05/20/2024 Employment and Income Answer Date Recor ded During the last four weeks, have you been actively looking for work? Patient declined 05/20/2024 Living Situation Answer Date Recorded What is your living situation? 0 05/20/2024 Interpersonal Safety Answer Date Record ed Physical Abuse 04/20/2024 Verbal Abuse 04/20/2024 Education Answer Date Recorded What is the highest level of school you have completed or the highest degree you have received? Master's degree (e.g., MA, MS, Shaun, MEd, SOCIAL MEDIA COMMUNITY MANAGER, [employer]) 02/07/2024 Comments No Sex and Gender Information Value Date Recorded Sex Assigned at Female 04/18/2024 9:31 AM EDT Legal Sex Female 5:44 AM EST Gender Identity Female 12/20/2023 11:06 AM EST Sexual Orientation Straight 04/18/2024 9: 31 AM EDT documented as of this encounter Medications at Time of Discharge acetaminophen (TYLENOL 8 HOUR) 650 mg 8 hr tablet Take 1 tablet (650 mg total) by mouth every 8 (eight) hours if needed for mild pain. Do not crush, chew, or split. albuterol HFA (PROAIR HFA ; PROVENTIL HFA ; VENTOLIN HFA) 90 mcg/actuation inhaler Inhale 2 Puffs into the lungs every 4 hours as needed for Cough or Wheezing. 08/06/2023 anastrozole (ARIMIDEX) 1 mg Take 1 tablet (1 mg total) by mouth 1 (one) time each day Swallow whole with a drink of water. 30 tablet 2 07/04/2024 6 atorvastatin (LIPITOR) 40 mg tablet Take 1 tablet (40 mg total) by mouth at bedtime. 90 each 3 02/07/2024 5 betamethasone, augmented, (DIPROLENE) 0.05 % ointment Apply topically 2 (two) times a day. 30 g 2 02/07/2024 brimonidine (ALPHAGAN) 0.2 % ophthalmic solution 2 (two) times a day. coenzyme Q-10 30 mg capsule Take 1 capsule (30 mg total) by mouth 1 (one) time each day. hydroCHLOROthiaz thee 12.5 mg tablet Take 1 tablet (12.5 mg total) by mouth 1 (one) time each day. 90 each 3 02/07/2024 5 hydrOXYzine HCL (ATARAX) 10 mg tablet Take 1 tablet (10 mg total) by mouth 1 (one) time each day if needed. 08/13/2023 5 ibuprofen (ADVIL,MOTRIN) 200 mg tablet Take 1 tablet (200 mg total) by mouth every 6 (six) hours if needed. magnesium sulfate 100 mg capsule Take 1 capsule by mouth 1 (one) time each day. pantoprazole (PROTONIX) 40 mg EC tablet Take 1 tablet (40 mg total) by mouth 2 (two) times a day before meals. Do not crush, chew, or split. 180 each 1 02/07/2024 documented as of this encounter Discharge Disposition Disposition Code Departure Means Destination Home or Self Care documented in this encounter Plan of Treatment Upcoming Encounters Date Type Department Care Team (Late st Contact Info) Description 08/17/2024 1:00 PM EDT Appointment [facility] Radiation Oncology [address] [place] [phone] Yazmin Johnson NP [address] [place] [address] 08/24/2024 9:45 AM EDT Office Visit Obstetrics and Gynecology [facility] [address] [place] [address] Janusz Bailon, [facility] [address] [place] [address] 08/30/2024 2:30 PM EDT Office Visit Breast Care Center [facility] [address] [phone] Roseann Porter MD 175 [facility] [address] [place] [address] 10/19/2024 9:45 AM EDT Office Visit [facility] Hematology Oncology [address] [place] [phone] Solitario Mercedes MD [address] [place] [phone] 02/07/2025 11:30 AM EST Office Visit Internal Medicine [facility] [address] [phone] Bk Otero MD [address] [address] documented as of this encounter Visit Diagnoses Not on filedocumented in this encounter Additional Health Concerns Assessment Noted Time PHQ-9 Depression Total Score: 1 05/21/19 25 11:52 AM EDT documented as of this encounter Care Teams Collections Officer Relationship Specialty Start Date End Date Bk Otero MD [address] [address] PCP - General 06/23/23 documented as of this encounter
== END 2024-07-11 10:47 | disposition home or self-care (01) ==
LOC: HO.HMCFM 09:46
PROVIDERS: PCP Nurse Practitioner Family; Visit Provider Nurse Practitioner Family
DX: Z00.01 Encounter for general adult medical examination with abnormal findings (principal); K21.9 Gastro-esophageal reflux disease without esophagitis; C50.911 Malignant neoplasm of unspecified site of right female breast; E78.2 Mixed hyperlipidemia; I73.9 Peripheral vascular disease, unspecified; Z76.89 Persons encountering health services in other specified circumstances; J45.20 Mild intermittent asthma, uncomplicated; M85.80 Other specified disorders of bone density and structure, unspecified site; I25.10 Atherosclerotic heart disease of native coronary artery without angina pectoris; I10 Essential (primary) hypertension; R21 Rash and other nonspecific skin eruption; M25.541 Pain in joints of right hand

== ENCOUNTER → 2024-07-11 09:45 | Outpatient (BNVA) | payer BC, SELFPAY | PROVIDERS: PCP Nurse Practitioner Family; Visit Provider Nurse Practitioner Family | DX: Z00.01 Encounter for general adult medical examination with abnormal findings (principal); K21.9 Gastro-esophageal reflux disease without esophagitis; E78.5 Hyperlipidemia, unspecified; I10 Essential (primary) hypertension; J45.20 Mild intermittent asthma, uncomplicated; I25.10 Atherosclerotic heart disease of native coronary artery without angina pectoris; E53.8 Deficiency of other specified B group vitamins; M85.80 Other specified disorders of bone density and structure, unspecified site; L30.9 Dermatitis, unspecified; R05.3 Chronic cough; E78.2 Mixed hyperlipidemia; I73.9 Peripheral vascular disease, unspecified; R21 Rash and other nonspecific skin eruption; M25.541 Pain in joints of right hand; M25.542 Pain in joints of left hand; Z85.3 Personal history of malignant neoplasm of breast | CPT/HCPCS: 96127; 96160 ==

== ENCOUNTER 2024-07-11 11:09 | Outpatient (REF) | payer BC, SELFPAY ==
[2024-07-11 14:51] LABS: Appearance Urine Clear; Color Urine Yellow; Glucose Urine UA Negative (Negative); Leukocyte Esterase Urine Small (1+) (Negative); Nitrite Urine Negative (Negative); PH 6.5 (5.0-9.0); Specific Gravity - Urine 1.025 (1.005-1.025); UMIC TRIGGER UA YES; Urine Blood Negative (Negative); Urine Ketones Trace mg/dL (Negative); Urine Protein Negative (Neg-Trace)
[2024-07-11 15:01] LABS: Hematocrit 41.4 % (37.0-47.0); Hemoglobin 13.6 g/dl (12.0-16.0); Mean Corpuscular HGB Conc 32.9 g/dl (31.0-35.0); Mean Corpuscular Hemoglobin 31.2 pg (27.0-33.0); Mean Platelet Volume 11.4 fL (9.4-12.3); Platelet Count 190 X10*3/uL (160-400); Red Blood Count 4.36 X10*6/uL (4.20-5.50); Red Cell Distribution Width 12.8 % (11.0-16.0); White Blood Count 4.4 X10*3/uL (4.8-10.8)
[2024-07-11 15:11] LABS: Bacteria Urine None Seen (None Seen); RBC Urine 0-2 /HPF (0-2); Squamous Epithelial Cell Urine 0-2 /HPF (0-2); WBC Urine 0-5 /HPF (0-5)
[2024-07-11 15:15] LABS: Estimated Average Glucose 111 mg/dL; Hemoglobin A1c % 5.5 % (<6.0)
[2024-07-11 15:32] LABS: Creatinine Urine 134.79 mg/dL; Microalbum/Creatinine Ratio Ur 8.1 ug/mg cr (<30)
[2024-07-11 15:38] LABS: Erythrocyte Sedimentation Rate 16 MM/HR (0-20)
[2024-07-11 16:10] LABS: Folate 11.1 ng/mL (> or = 4.0); Vitamin B12 780 pg/mL (200-900)
[2024-07-11 16:57] LABS: Alanine Aminotransferase 39 U/L (0-31); Albumin Level 4.1 g/dL (3.5-5.0); Anion Gap 10 (12-20); Aspartate Amino Transferase 27 U/L (5-31); Bilirubin Total 0.4 mg/dL (0.0-1.0); Blood Urea Nitrogen 14 mg/dL (9-16); C Reactive Protein 0.17 mg/dL (< or = 0.50); Calcium 9.2 mg/dL (8.4-10.2); Carbon Dioxide 29 mmol/L (22-29); Chloride 107 mmol/L (96-108); Cholesterol 181 mg/dL (<200); Estimated Glomerular Filt Rate > 60; Glucose Random 74 mg/dL (60-115); HDL Cholesterol 44 mg/dL (>40); Iron 127 mcg/dL (30-160); LDL Cholesterol Calculated 100 mg/dL (<100); Percent Iron Saturation 49 % (15-50); Potassium 3.9 mmol/L (3.3-5.1); Sodium 142 mmol/L (135-145); Total Iron Binding Capacity 259 mcg/dL (228-428); Total Protein 6.6 g/dL (6.5-8.0); Triglycerides 185 mg/dL (<150); Unsaturated Iron Binding 132 ug/dL
[2024-07-11 17:02] LABS: Ferritin 182 ng/mL (10-250); TSH reflex Free T4 0.51 uIU/mL (0.32-4.0); Vitamin D 25-OH Total 63.4 ng/mL (>30)
[2024-07-11 17:14] LABS: Alkaline Phosphatase 115 U/L (39-117)
[2024-07-12 17:32] LABS: Complement C3 153 mg/dL (83-193)
[2024-07-12 20:23] LABS: Anti DNA DS Antibody 1 IU/mL; SM/Ribonucleoprotein Ab <1.0 NEG AI (<1.0 NEG); Smith Protein <1.0 NEG AI (<1.0 NEG)
[2024-07-18 07:23] LABS: Anti Nuclear Antibody Screen POSITIVE (NEGATIVE)
== END 2024-07-11 11:10 | disposition home or self-care (01) ==
LOC: HO.WFDLDS 11:09
PROVIDERS: Visit Provider Nurse Practitioner Family
DX: Z00.00 Encounter for general adult medical examination without abnormal findings (principal); R21 Rash and other nonspecific skin eruption; M25.50 Pain in unspecified joint; Z00.01 Encounter for general adult medical examination with abnormal findings; I25.10 Atherosclerotic heart disease of native coronary artery without angina pectoris; I10 Essential (primary) hypertension; E78.5 Hyperlipidemia, unspecified; I73.9 Peripheral vascular disease, unspecified; M85.80 Other specified disorders of bone density and structure, unspecified site; Z13.1 Encounter for screening for diabetes mellitus
CPT/HCPCS: 36415; 80053; 80061; 81001; 82043; 82306; 82570; 82607; 82728; 82746; 83036; 83540; 84443; 85027; 85652; 86038; 86039; 86140; 86160; 86225; 86235

== ENCOUNTER 2024-09-27 08:54 | Outpatient (AMB) | payer BC, SELFPAY ==
--- NOTE | 2024-09-27 08:57 | MHC.PC.OV ---
Vital Signs 09/27/24 09:03 09/27/24 09:07 09/27/24 09:07 Height 5 ft Weight 144 lb 6 oz BMI 28.2 BP 118/66 120/70 112/65 Blood Pressure Location Lt brachial Lt brachial Lt brachial Position Sitting Standing Supine Respiration 12 Pulse 81 86 76 Pulse Source Pulse Oximeter Pulse Oximeter Pulse Oximeter Temp 97.1 F Temp Source Oral Pulse Oximetry (%) 95 96 96 Oxygen Delivery Method Room Air Room Air Room Air Intake Visit Reasons: severe fatigue and tiredness Intake Note: Follow up on severe fatigue, dizziness, confusion and tiredness. Maintenance Department Technician Required: No Allergies moxifloxacin (From Avelox) Allergy (Intermediate, Verified 09/27/24 09:11) Rash montelukast (From Singulair) Allergy (Mild, Verified 09/27/24 09:11) lip swelling Medication List - Last Reconciled 09/27/24 by Shani James, SCRUBBER OPERATOR- albuterol sulfate 2.5 mg (3 mL) inhalation Q4-6H PRN albuterol sulfate 90 mcg/actuation 2 puffs PO Q4H PRN anastrozole 1 mg PO DAILY aspirin 81 mg PO DAILY atorvastatin 40 mg PO DAILY bimatoprost 0.01% (Lumigan) 1 drp ophthalmic (eye) DAILY clotrimazole-betamethasone 1-0.05 % appl topical cyanocobalamin (vitamin B-12) (Vitamin B-12) 1,000 mcg PO DAILY hydrochlorothiazide 12.5 mg PO DAILY ibuprofen 600 mg PO Q8H PRN ketorolac 0.5% 1 drp ophthalmic-Right BID latanoprost 0.005% 1 drp ophthalmic-Right BEDTIME montelukast (Singulair) 10 mg PO BEDTIME pantoprazole 40 mg PO DAILY timolol maleate 0.5% 1 drp ophthalmic-Right BID Tobacco use date assessed: 09/27/24 Fall risk assessment: No Falls in past year Last assessed Fall Risk: 09/27/24 Dental Screening Dental Screen Date: 09/27/24 Did you have a dental visit in the last 12 months?: Yes Did you have a dental problem in the last 6 months where you did not have access to dental care?: No Was dental information given to patient?: Patient has dentist HPI HPI Comments History of Present Illness Details 64 y/o F with GERD, Mild underlying microangiopathy. (brain CT 2022), HLD, HTN, mild intermittent asthma, breast ca (Feb 2024, R breast carcinoma in-situ s/p radiation completed april 2024 and lumpectomy), Osteopenia, CAD, family hx of brain aneurysm (mom), glaucoma Social: , has a place in [place], goes there in the Winter Surgery: R breast lumpectomy, bilat breast implants, tummy tuck, L bunionectomy Family hx: Mom and Dad . 2 children Girls (Dtr Gi and Lelia also my patients) Health Maintenance: Mammo Feb 2024 Tdap reports UTD in 10 years. PVC 20 done 2019 per report Dexa 2024, osteopenia Pap appt w/ mcdougal scheduled this year EGD Dr Amin 2023 Colon 2021 + polyp, Dr Amin Specialists: [facility] KEO Ayala AGENCY SERVICE REPRESENTATIVE - [facility] History of Present Illness Here today with complaints of fatigue, dizziness, headache and ear pain. She reports that 1 week ago she developed eye pain and headaches in the setting of glaucoma. She reports that the last time this happened it was related to increase in intra-ocular pressure. She did contact her eye doctor who recommended a PCP evaluation prior to coming to their office. She has an appointment scheduled with them for tomorrow. She is taking her eyedrops as directed. She reports that she was in her normal state of health up until 1 week ago when she developed this dizziness which seems to be worse with turning of her head and position changes. It isn't associated with fever, chills, chest pain, neurological deficits. She also reports some asthma exacerbation which has been resolved with the use of her nebulizer x2 in the last week. She does endorse some nausea with the dizziness. She also reports that she has the feeling of being disoriented when her symptoms are present. Review of Systems - General: Reports fatigue. - Neurological: Reports dizziness, confusion, and headaches. - Respiratory: Reports shortness of breath upon exertion. - Eyes: Reports using drops for eye pressure; no recent vision changes discussed. - Ears: Reports dizziness possibly related to inner ear issue. Physical Exam General: Well developed, well nourished, in no acute distress. Appears stated age. Head: Normocephalic, atraumatic. Eyes: Pupils are equal, round and reactive to light and accommodation. Conjunctivae are clear. Vision grossly normal. EOMI Ears: TM intact with mild crowding bilat, EAC clear. Positive [place]topia-Hallpike bilat Nares: Patent, no sinus pain w/ palp. Lungs: Clear to auscultation bilaterally. No rales, rhonchi or wheeze noted. Good air flow in all mascorro. Heart: Regular rate and rhythm. No murmurs, click, rubs or gallops are noted. Orthostatic vital signs negative Pulses: Peripheral pulses are equal and palpable bilaterally. Extremities: No clubbing, cyanosis nor edema is noted. Neuro: Nonfocal exam Psych: Mood and affect appropriate. Patient reports confusion and disorientation, likely related to inner ear issues. Discussion Notes After a thorough examination, we suspect that the patient's dizziness and confusion may be related to a vestibular issue within the inner ear, possibly involving displaced otoliths. The patient was informed about the condition where inner ear crystals can become dislodged and cause symptoms. We discussed the option of vestibular therapy as a treatment method to help reposition these crystals and alleviate symptoms. In the meantime, medication is available to ease dizziness, although it will not resolve the condition fully. It's important to follow up with her lead data architect for eye-related headaches, as the glaucoma can contribute to these symptoms. The patient was instructed to continue using her prescribed inhaler for any respiratory distress. She was reassured about the need to seek care if symptoms persist or worsen and to follow up as necessary with physical therapy if symptoms do not improve with initial interventions. Patient was given time to ask questions. All questions were answered to their satisfaction. Assessment and Plan 1. BPPV - Vestibular therapy recommended. - antivert prn dizziness. 2. Glaucoma - Continue eye drops. - Follow-up with lead data architect. 3. asthma - Use inhalers - Monitor symptoms. RTO DEc as scheduled,labs 1 week before, sooner prn Patient Instructions - Attend as soon as possible for vestibular therapy appointments. - Continue using prescribed eye drops. - Use the inhaler as needed for shortness of breath, especially during smoke exposure. - Follow up with the eye doctor for headaches or vision issues. - Rest and avoid activities that exacerbate dizziness. - Return to the clinic if symptoms do not improve or worsen. Consent Patient was informed and verbally consented to the use of an ambient scribe for clinic note documentation during this visit. Total time spent caring for the patient today was 30 minutes. This includes time spent before the visit reviewing the chart, time spent during the visit, and time spent after the visit on documentation, reviewing laboratory results, diagnostic imaging, medications, performing a medically necessary evaluation, counseling on diagnoses, care coordination, ordering appropriate tests, ordering appropriate medications, review of tests performed by other providers, reporting test results with the patient, communication with other healthcare providers. [facility] Medical History (Updated 09/27/24 @ 09:24 by Shani James [facility]) Asthma Blockage of coronary artery of heart Breast cancer (~02/2024) DJD (degenerative joint disease) Eczema GERD (gastroesophageal reflux disease) Glaucoma Heart disease HTN (hypertension) Hx of mammogram (~02/2024) Osteopenia (~2024) Surgical History (Updated 07/11/24 @ 10:15 by Shani James [facility]) H/O colonoscopy (~2021) History of esophagogastroduodenoscopy (EGD) History of laparoscopic appendectomy Hx of breast augmentation Hx of breast implants, bilateral (~2007) Hx of cosmetic surgery Family History (Updated 07/11/24 @ 10:11 by Samy Henriquez MA) Father Asthma HTN (hypertension) Cardiovascular disease Mother Asthma HTN (hypertension) High cholesterol Sister Asthma Cardiovascular disease Brother Asthma Cardiovascular disease Social History (Updated 07/11/24 @ 09:49 by Samy Henriquez MA) Household Members: Spouse Both parents involved: No Caregiver staying overnight: No Housing: House Are you a primary child care teacher to a significant other at home: No Do you presently have visiting nurse or other home services: No 75 years or older and lives alone: No Alcohol intake: current Alcohol intake frequency: a few times a month Patient Tobacco Use Status: Never used Tobacco e-Cigarette/Vaping Use: Never Used Second Hand Smoke Exposure: No service: No Current occupational status: retired Cognitive needs: No Hearing needs: No Vision needs: Yes (wear glasses) Questionnaire PHQ-9 Over the last 2 weeks, how often have you been bothered by any of the following problems? 1. Little interest or pleasure in doing things: not at all 2. Feeling down, depressed, or hopeless: not at all 3. Trouble falling or staying asleep, or sleeping too much: not at all 4. Feeling tired or having little energy: not at all 5. Poor appetite or overeating: not at all 6. Feeling bad about yourself - or that you are a failure or have let yourself or your family down: not at all 7. Trouble concentrating on things, such as reading the newspaper or watching television: not at all 8. Moving or speaking so slowly that other people could have noticed. Or the opposite - being so fidgety or restless that you have been moving around a lot more than usual: not at all 9. Thoughts that you would be better off or of hurting yourself in some way: not at all Total score: 0 Depression Screening Interpretation: Negative Depression Screening Done: Yes 27371 - PHQ-9 Billing: Yes Source: Developed by Drs. Mohsen Aranda, Ninfa Barnhart, Jl Raymond and colleagues, with an educational maynor from [employer]. Thrive Questionnaire Date Thrive assessed: 09/27/24 I am a: Patient What is your living situation today?: I have a steady place to live Within the past 12 months, did the food you bought not last and you didn't have the money to get more?: Never true Within the past 12 months, did you worry whether your food would run out before you got money to buy more?: Never true Do you have trouble paying for medicines?: No Do you have trouble getting transportation to medical appointments?: No Do you have trouble paying your heating and electricity bill?: No Do you have trouble taking care of your child, family member or friend?: No Do you have trouble with day-to-day activities such as bathing, preparing meals, shopping, managing finances, etc.?: No Are you currently unemployed and looking for a job?: No Are you interested in more education?: No Please select the resources that you would like help with: None Currently or been in a relationship where the following occur: No concerns reported THRIVE Score: 0 ROSMERY-7 AMB Questionnaire ROSMERY-7 Date ROSMERY - 7 assessed: 09/27/24 Feeling nervous, anxious, or on edge: 0 = Not at all Not being able to stop or control worryin = Not at all Worrying too much about different things: 0 = Not at all Trouble relaxin = Not at all Being so restless that it is hard to sit still: 0 = Not at all Becoming easily annoyed or irritable: 0 = Not at all Feeling afraid as if something awful might happen: 0 = Not at all Total ROSMERY-7 score (0-4 normal; 5-9 mild; 10-14 moderate; 15-21 severe): 0 Source: Developed by Drs. Mohsen Aranda, Ninfa Barnhart, Jl Raymond and colleagues, with an educational maynor from [employer]. ROSMERY-7 Assessment Billing ROSMERY-7 Assessment Tool: ROSMERY-7 Assessment 01442 ACT Questionnaire In the past 4 weeks, how much of the time did your asthma keep you from getting as much done at work, school or at home?: None of the time During the past 4 weeks, how often have you had shortness of breath?: 1-2 times a week During the past 4 weeks, how often did your asthma symptoms wake you up at night or earlier than usual in the morning?: Not at all During the past 4 weeks, how often have you had to use your rescue inhaler or nebulizer medication?: Once a week or less How would you rate your asthma control during the past 4 weeks?: Well controlled ACT Interpretation: Negative Score: 22 Physical exam (Primary Care) Vital Signs: Last Vital Signs Temp 97.1 F 09/27/24 09:03 Pulse 76 09/27/24 09:07 Resp 12 09/27/24 09:03 BP 112/65 09/27/24 09:07 Pulse Ox 96 09/27/24 09:07 Oxygen Delivery Method Room Air 09/27/24 09:07 BMI result Body Mass Index 28.2 Tobacco/Smoking Status: Tobacco use Status Tobacco use date assessed 09/27/24 09/27/24 09:02 Patient Tobacco Use Status Never used Tobacco 09/27/24 09:02 e-Cigarette/Vaping Use Never Used 09/27/24 09:02 PHQ-9: PHQ-9 Score PHQ-9: Total score 0 09/27/24 09:02 Depression Screening Interpretation: Negative Thrive Assessment: Date of Thrive Assessment Date Thrive assessed 09/27/24 09/27/24 09:02 Currently or been in a relationship where the following occur: No concerns reported Coding Level of Care Code Est Pt Level 4 (27303) Complex EM visit Add On G2211 Diagnoses Benign paroxysmal positional vertigo due to bilateral vestibular disorder H81.13 Laterality: bilateral Glaucoma of both eyes, unspecified glaucoma type H40.9 Glaucoma type: unspecified Laterality: bilateral Nonintractable headache, unspecified chronicity pattern, unspecified headache type R51.9 Headache type: unspecified Headache chronicity pattern: unspecified pattern Intractability: not intractable Mild intermittent asthma without complication J45.20 Asthma complication type: uncomplicated Additional Codes ROSMERY-7 Assessment Billing - ROSMERY-7 Assessment Tool: ROSMREY-7 Assessment 26065 ([id number]) PHQ-9 - 73281 - PHQ-9 Billing: Yes ([id number]) Asthma Control Questionnaire - ACT Interpretation: Negative ([id number]) Assessment & Plan Assessment & Plan (1) BPPV (benign paroxysmal positional vertigo): Code(s): H81.10 - Benign paroxysmal vertigo, unspecified ear Category: Medical Qualifiers: Laterality: bilateral Qualified Code(s): H81.13 - Benign paroxysmal vertigo, bilateral (2) Glaucoma: Code(s): H40.9 - Unspecified glaucoma Category: Medical Qualifiers: Glaucoma type: unspecified Laterality: bilateral Qualified Code(s): H40.9 - Unspecified glaucoma (3) Headache: Code(s): R51.9 - Headache, unspecified Category: Medical Qualifiers: Headache type: unspecified Headache chronicity pattern: unspecified pattern Intractability: not intractable Qualified Code(s): R51.9 - Headache, unspecified (4) Mild intermittent asthma: Code(s): J45.20 - Mild intermittent asthma, uncomplicated Category: Medical Qualifiers: Asthma complication type: uncomplicated Qualified Code(s): J45.20 - Mild intermittent asthma, uncomplicated Plan . Orders: Orders PT Evaluation and Treatment Today H81.10 - Benign paroxysmal vertigo, unspecified ear Lipid Panel 01/08/25 E78.2 - Mixed hyperlipidemia, I10 - Essential (primary) hypertension Comprehensive Met. Panel 01/08/25 E78.2 - Mixed hyperlipidemia, I10 - Essential (primary) hypertension Complete Blood Count no Diff 01/08/25 E78.2 - Mixed hyperlipidemia, I10 - Essential (primary) hypertension Medications: New meclizine (Antivert) 50 mg PO DAILY PRN 30 tabs 0RF dizziness
[2024-09-27 09:03] VITALS: BP 118/66; PULSE 81; RESP 12; TEMP 36.2; O2SAT 95; BMI 28.2
[2024-09-27 09:07] VITALS: BP 112/65; BP 120/70; PULSE 76; PULSE 86; O2SAT 96
--- OUTSIDE RECORDS SUMMARY | 2024-09-27 09:37 | XMS_ITS | Patient Health Record ---
Author Organization [facility] Paco Mckennaley Address [address] [place] [address] Care Team Providers Care Outreach Specialist Name Role Phone Jenny Mcbride NP Primary Care Provider Reg Thomas Unavailable [phone] Reason For Referral No Information Medications Medication SIG (Take, Route, Frequency, Duration) Notes Start Date End Date Status Biotin Active Vitamin D3 Active Atorvastatin Calcium 40 MG 1 tablet Oral ly Once a day; Duration: 30 day(s) Active Omeprazole 40 MG 1 capsule 30 minutes before morning meal Orally Once a day; Duration: 30 day(s) Active Albuterol PRN Active Combigan 0.2-0.5 % 1 drop into affected eye Ophthalmic Twice a day Active Calcium 600 MG 1 tablet with meals Orally Twice a day; Duration: 30 day(s) Active Social History Tobacco Use: Social History Observation Description Date Details (start date - stop date) Never Smoker NA - NA Tobacco Use/Smoking Question Answer Notes Are you a: nonsmoker Alcohol Screen Question Answer Notes Did you have a drink containing alcohol in the p ast year? No Points 0 Interpretation Negative Tobacco use other than smoking: Question Answer Notes Are you an other tobacco user? No Problems Problem Type SNOMED Code ICD Code Onset Dates Problem Status W/U Status Risk Notes Problem Localized, primary osteoarthritis of the ankle and/or foot (608387946) Primary osteoarthrit is, right ankle and foot (M19.071) Active confirmed Problem Primary osteoarthrit is, left ankle and foot (M19.072) Active confirmed Plan Of Treatment Pending Test Test Name Order Date X ray : Foot, left 3V 02/22/2019 X ray : Foot, right 3V 02/22/2019, [id number] INJECT or DRAIN, JOINT/BUR SA 02/22/2019 Insurance Providers Payer Name Payer Address Payer Phone Subscriber Number Group Number Insured Name Patient Relationship to Insured Coverage Start Date Coverage End Date [facility] Others [address] [place] [address] [phone] Ligia Anders Self - patient is the insured Medical (General) History Medical History History ICD Code asthma CAD (Cholesterol) Cataracts High blood pressure Measles Chicken pox Joint implants/screws Surgical History Surgery Date(Month/Year) cataract surgery bunionectomy
--- OUTSIDE RECORDS SUMMARY | 2024-09-27 09:37 | XMS_ITS | Patient Health Record ---
Author Organization [facility] Address [address] [place] [address] Care Team Providers Care Cloud Engineer Name Role Phone Ned Manuel MD Primary Care Provider Luis Jorge Jr Unavailable [phone] Allergies No Known Allergies Reason For Referral No Information Medications Medication SIG (Take, Route, Frequency, Duration) Notes Start Date End Date Status Atorvastatin Calcium 20 MG 1 tablet Orally Once a day Active Vitamin B12 1000 MCG 1 tablet Orally Onc e a day Active Aspir-81 81 MG 1 tablet Orally Once a day Active Combigan 0.2-0.5 % 1 drop into affected eye Ophthalmic Twice a day Active Albuterol Sulfate 108 (90 Base) MCG/ACT 2 puffs as needed Inhalation every 6 hrs as needed Active Magnesium Active Pantoprazole Sodium 40 MG 1 tablet Orall y Once a day for 30 day(s) 07/26/2023 Active Immunizations Vaccine Route Administration Date Status Comme nts Influenza Unknown 11/10/2017 Administered Influenza Unknown 11/09/2018 Administered Influenza Unknown 12/31/2020 Administered Influenza Unknown 12/01/2022 Administered Influenza Unknown 11/29/2023 Administered Problems Problem Type SNOMED Code ICD Code Onset Dates Problem Status W/U Status Risk Notes Problem 344225362 Colon cancer screening (Z12.11) Active confirmed Problem 24430340 Epigastric pain (R10.13) Active confirmed Problem Gastro-esophage al reflux disease without esophagitis (821725029) Gastro-esophageal reflux disease without esophagitis (K21.9) Active confirmed Problem 620545763 Gastroesophageal reflux disease without esophagitis (K21.9) Active confirmed Problem 448450936 LUQ pain (R10.12) Active confirmed Vital Signs Temperature 97.3 degrees Fahrenheit 02/14/2024 Blood pressure diastolic 00 mm Hg 02/14/2024 Height 61 in 02/14/2024 Blood pressure systolic 000 mm Hg 02/14/2024 Weight 140 lbs 02/14/2024 BMI 26.45 kg/m2 02/14/2024 Encounters Encounter Location Date Provider Diagnosis [facility] [address] [place] [address] 02/14/2024 Luis Amin Jr Gastroesophageal reflux disease without esophagitis K21.9 and Colon cancer screening Z12.11 [facility] [address] [place] [address] 01/12/2024 Luis Amin Jr Assessments Encounter Date Diagnosis (ICD Code) Assessment Notes Treatment Notes Treatment Clinical Notes Section Notes 02/14/2024 Colon cancer screening (ICD-10 - Z12.11) She appears stable with respect to her reflux symptoms. We discussed diet, lifestyle modifications , and weight management regarding the treatment of reflux. She will continue b.i.d. PPI for the next month and let us know how she's doing. Followup in one year. 02/14/2024 Gastroesophageal reflux disease without esophagitis (ICD-10 - K21.9) Endoscopy material was printed She appears stable with respect to her reflux symptoms. We discussed diet, lifestyle modifications , and weight management regarding the treatment of reflux. She will continue b.i.d. PPI for the next month and let us know how she's doing. Followup in one year. Plan Of Treatment Pending Test Test Name Order Date STOOL WBC 09/03/2017 OVA & PARASITES (O&P) 09/03/2017 CULTURE, STOOL 09/03/2017 Future Test Test Name Order Date UPPER GI ENDOSCOPY 02/27/2011 COLONOSCOPY 02/27/2011 COLONOSCOPY 06/30/2021 UPPER GI ENDOSCOPY ANY OTHER TECHNIQUE 0 07/28/2023 Next Appt Details Provider Name:Luis bettencourt Jr, 02/14/2025 10:00:00 AM, [address], [address], [place], [address], Insurance Providers Payer Name Payer Address Payer Phone Subscriber Number Group Number Insured Name Patient Relationship to Insured Coverage Start Date Coverage End Date [employer] [address] [place] [address] [id number] JOSE BHATTI Self - patient is the insured Medical (General) History Medical History History ICD Code Colonoscopy 07/30, tubular adenoma, seven -year followup headaches asthma esophageal spasm Gastroesophageal reflux dise ase, EGD 08/31, no H. pylori or Marie's esophagus degenerative joint disease Glaucoma Hypertension Coronary artery disease, noncritical 25% blockage by cardiac cath Surgical History Surgery Date(Month/Year) Abdominoplasty Hospitalization History Reason Date(Month/Year) Hospitalized in [place] with chest pain 03/20, 04/06
--- OUTSIDE RECORDS SUMMARY | 2024-09-27 09:37 | XMS_ITS | Encounter Summary ---
Author Organization [facility] Address [address] [facility] [address] [facility] [address] [place] [phone] Phone Care Team Providers Care Document Restorer Name Role Phone Ned Manuel MD Unavailable Shaun Goodrich MD Unavailable [phone] Jenny Mcbride CAPTAIN OF GUARDS Unavailable [phone] Jenny Mcbride CAPTAIN OF GUARDS Primary Care Provider Jenny Mcbride CAPTAIN OF GUARDS Primary Care Provider Luis Amin MD Unavailable Unknown, Unknown Primary Care Provider Maria Teresa baker Encounter Details Date Type Department Care Team (Late st Contact Info) Description 02/24/2018 Ancillary Orders [facility],Outside Imaging [address] [place] [address] System, Provider Not In, PhD [address] [address] Social History Tobacco Use Types Packs/Day Years Used Date Smoking Tobacco: Never Smokeless Tobacco: Never Alcohol Use Standard Drinks/Week Comments No 0 (1 standard drink = 0.6 oz pur e alcohol) Comments Unknown Sex and Gender Information Value Date Recorded Sex Assigned at Not on file Legal Sex Female 9:47 PM EDT Gender Identity Not on file Sexual Orientation Not on file documented as of this encounter Plan of Treatment Not on file documented as of this encounter Results * Mammogram Outside (No Interpretation) (06/08/2014 12:00 AM EDT) Narrative SYSTEMGENERATED, DOCUMENTATION - 02/24/2018 11:05 AM EST This study is for PACS storage only and not for interpretation. us Provider Not In System PhD IMG OUTSIDE IMAGING W /OUT INTERPRETATION Final Result documented in this encounter Visit Diagnoses Not on filedocumented in this encounter Additional Health Concerns Assessment Noted Time PHQ-2 Depression Total Score: 0 02/18/19 19 2:18 PM EST documented as of this encounter Care Teams Document Restorer Relationship Specialty Start Date End Date Jenny Mcbride, CAPTAIN OF GUARDS [address] [place] [id number] PCP - General Family Medicine 05/26/17 09/20/19 Jenny Mcbride [employer]TAIN OF [employer]ARDS [address] [place] [address] PCP - General Family Medicine 09/21/19 04/19/23 Unknown, Unknown, MD PCP - General 04/20/23 Ned Manuel MD [address] [place] [id number] Historical LMR Provider 11/25/16 02/15/21 Shaun Goodrich MD [address] [place] [id number] Historical LMR Provider 11/25/16 02/15/21 Jenny Mcbride [employer]TAIN OF [employer]ARDS [address] [place] [id number] Historical LMR Provider 11/25/16 11/25/22 Luis Amin MD [address] [place] [address] [address] [place] [address] Gastroenterology 11/26/22 documented as of this encounter Additional Source Comments The information contained in this document represents components of the legal health record. It is not the complete legal health record.[facility]
--- OUTSIDE RECORDS SUMMARY | 2024-09-27 09:37 | XMS_ITS ---
Author Organization [facility] Address [address] [place] [address] Phone Care Team Providers Care Frog Catcher Name Role Phone Shani James Primary Care Provider [phone] Active Problems Problem Noted Date Diagnosed Date Primary localized osteoarthrosis of ankle and fo ot 07/06/2024 History of stress fracture 05/03/2024 Invasive ductal carcinoma of breast, female, right (CMS/HCC V24, CMS/HCC V28) 03/15/2024 Cancer Staging:Pathologic:Stage IA(pT1c, pN0, cM0, G2, ER+, UT+, HER2-, Oncotype DX score: 5) - Signed by Bridget Allen MD on 05/10/2024 History of breast augmentation 03/15/2024 Precordial pain 01/04/2024 Coronary artery disease invo lving [place] coronary artery of [place] heart without angina pectoris 08/06/2023 Assessment & Plan (01/04/2024 12:45 PM EST): Pleasant 63-year-old woman presented to a hospital in [place] several months ago for evaluation of abrupt onset chest discomfort associated with difficulty taking in a breath. She became understandably quite anxious and seek medical attention. There was no evidence of acute coronary insufficiency. Nevertheless she underwent cardiac workup which included negative stress test and a CT coronary angiogram. Angiography demonstrated nonobstructive LAD disease with evidence of wall calcification and a 30 to 40% lesion due to plaque. She has been treated with preventative measures including low-dose aspirin and statin therapy. These are appropriate to reduce the likelihood of a first coronary event. The patient's symptoms do not appear to reflect coronary insufficiency. Migraine without status migrainosus, not intract able 08/06/2023 Mild intermittent asthma without complication Assessment & Plan (01/04/2024 12:45 PM EST): Stable and without recent symptoms. Mixed hyperlipidemia 08/06/2023 Assessment & Plan (01/04/2024 12:45 PM EST): Patient has a history of hyperlipidemia treated with statin therapy. I would aim for an LDL cholesterol of less than 100 mg/dL and ideally less than 70 mg/dL. She does not have any evidence of peripheral vascular disease or cerebrovascular disease. Chest pain in adult 04/06/2023 Overview (05/04/2024): 04/07/2023: HS Trop neg x's 2 CCTA 03/20/2023: Ca score 119, 25-49% LAD, < 25% mid LAD Echo 03/2023: EF 60-64% Chest CT 03/20/2023: Air trapping throughout the lungs with central airway inflammatory changes. Correlate for underlying infectious or inflammatory bronchitis/bronchiolitis. Acute bronchitis 03/20/2023 Status post appendectomy 11/26/2022 Vitamin D deficiency 08/27/2022 Atopic dermatitis 08/27/2022 Vertigo 07/27/2018 Reactive depression (situational) 06/15/2018 Gastroesophageal reflux disease without esophagi tis 05/21/2017 Essential hypertension 05/21/2017 Assessment & Plan (01/04/2024 12:45 PM EST): Patient is treated for hypertension and generally reports good blood pressure control. Today's office reading is unusually high but this appears to be an outlier. Patient will continue to monitor her blood pressures at home. Moderate persistent asthma without complication 05/21/2017 Irritable bowel syndrome wit h both constipation and diarrhea 05/21/2017 Eczema of both external ears 05/21/2017 Chiari I malformation (CMS/HCC V24, CMS/HCC V28) 05/21/2017 Chronic gastritis without bleeding 05/21/2017 External hemorrhoids 05/21/2017 Glaucoma of right eye 05/21/2017 Current Oncology Plans No current plan information found. Past Plans No past plan information found. Radiation Treatments * Treatment Site Started On Last Treated On Fractions Complete Last Fraction Dose Given/Prescribed Total Dose Given/Prescribed Technique Right Breast 06/14/2024 5 22 16 of 16 267 cGy / 267 cGy 4,272 cGy / 4, 272 cGy Tangents
== END 2024-09-27 11:01 | disposition home or self-care (01) ==
LOC: HO.HMCFM 08:54
PROVIDERS: PCP Nurse Practitioner Family; Visit Provider Nurse Practitioner Family
DX: H81.13 Benign paroxysmal vertigo, bilateral (principal); H40.9 Unspecified glaucoma; R51.9 Headache, unspecified; J45.20 Mild intermittent asthma, uncomplicated

== ENCOUNTER → 2024-09-27 08:54 | Outpatient (BNVA) | payer BC, SELFPAY | PROVIDERS: PCP Nurse Practitioner Family; Visit Provider Nurse Practitioner Family | DX: H81.13 Benign paroxysmal vertigo, bilateral (principal); R53.83 Other fatigue; K21.9 Gastro-esophageal reflux disease without esophagitis; E78.5 Hyperlipidemia, unspecified; I10 Essential (primary) hypertension; H40.9 Unspecified glaucoma; R51.9 Headache, unspecified; J45.20 Mild intermittent asthma, uncomplicated; E78.2 Mixed hyperlipidemia | CPT/HCPCS: 96127; 96160 ==

== ENCOUNTER 2024-10-27 14:51 | Outpatient (AMB) | payer BC, SELFPAY ==
--- OUTSIDE RECORDS SUMMARY | 2011-06-16 | XMS_ITS | Encounter Summary ---
Author Organization [facility] Address [address] [place] [address] Phone Care Team Providers Care Firer Tunnel Kiln Name Role Phone Unavailable Primary Care Provider Unavailabl e Encounter Details Date Type Department Care Team (Late st Contact Info) Description 06/16/2011 Hospital Encounter [facility],Outside Imaging [address] [place] [address] System, Provider Not In, [facility] [address] [address] Social History Tobacco Use Types Packs/Day Years [...] It is not the complete legal health record.[facility]
--- OUTSIDE RECORDS SUMMARY | 2012-02-04 01:00 | XMS_ITS | Encounter Summary ---
Author Organization [facility] Address [address] [place] [address] Phone Care Team Providers Care Electro Mechanical Assembler Name Role Phone Unavailable Primary Care Provider Unavailabl e Encounter Details Date Type Department Care Team (Late st Contact Info) Description 02/04/2012 Hospital Encounter [facility],Outside Imaging [address] [place] [address] System, Provider Not In, [facility] [address] [address] Social History Tobacco Use Types Packs/Day Years [...] It is not the complete legal health record.[facility]
--- OUTSIDE RECORDS SUMMARY | 2012-02-04 01:15 | XMS_ITS | Encounter Summary ---
Author Organization [facility] Address [address] [place] [address] Phone Care Team Providers Care Spindle Repairer Name Role Phone Unavailable Primary Care Provider Unavailabl e Encounter Details Date Type Department Care Team (Late st Contact Info) Description 02/04/2012 12:15 AM EST Hospital Encounter [facility],Outside Imaging [address] [place] [address] System, Provider [place] In, [place] [address] Social History Tobacco Use Types Packs/Day Years [...] It is not the complete legal health record.[facility]
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
--- NOTE | 2024-10-27 14:53 | MHC.PC.OV ---
Vital Signs 10/27/24 15:00 Height 5 ft Weight 145 lb 2 oz BMI 28.3 BP 133/60 Blood Pressure Location Lt brachial Position Sitting Respiration 16 Pulse 89 Pulse Source Pulse Oximeter Temp 98.0 F Temp Source Oral Pulse Oximetry (%) 98 Oxygen Delivery Method Room Air Intake Visit Reasons: left hip upper side Intake Note: patient here c/o pain on left hip upper side and asthma Weather Strip Installer Required: No Is last menstrual period known: No Post menopausal: No Patient : No Allergies moxifloxacin (From Avelox) Allergy (Intermediate, Verified 10/27/24 15:10) Rash montelukast (From Singulair) Allergy (Mild, Verified 10/27/24 15:10) lip swelling Medication List - Last Reconciled 10/27/24 by Shani James, ENVIRONMENTAL ENGINEERING ASSISTANT- albuterol sulfate 2.5 mg (3 mL) inhalation Q4-6H PRN albuterol sulfate 90 mcg/actuation 2 puffs PO Q4H PRN anastrozole 1 mg PO DAILY aspirin 81 mg PO DAILY atorvastatin 40 mg PO DAILY bimatoprost 0.01% (Lumigan) 1 drp ophthalmic (eye) DAILY clotrimazole-betamethasone 1-0.05 % appl topical cyanocobalamin (vitamin B-12) (Vitamin B-12) 1,000 mcg PO DAILY hydrochlorothiazide 12.5 mg PO DAILY ibuprofen 600 mg PO Q8H PRN ketorolac 0.5% 1 drp ophthalmic-Right BID latanoprost 0.005% 1 drp ophthalmic-Right BEDTIME meclizine (Antivert) 50 mg PO DAILY PRN montelukast (Singulair) 10 mg PO BEDTIME pantoprazole 40 mg PO DAILY prednisolone acetate 1% 1 drp ophthalmic (eye) BID timolol maleate 0.5% 1 drp ophthalmic-Right BID Tobacco use date assessed: 10/27/24 Fall risk assessment: No Falls in past year Last assessed Fall Risk: 10/27/24 Dental Screening Dental Screen Date: 10/27/24 Did you have a dental visit in the last 12 months?: Yes Did you have a dental problem in the last 6 months where you did not have access to dental care?: No Was dental information given to patient?: Patient has dentist HPI HPI Comments History of Present Illness Details 64 y/o F with GERD, Mild underlying microangiopathy. (brain CT 2022), HLD, HTN, mild intermittent asthma, breast ca (Feb 2024, R breast carcinoma in-situ s/p radiation completed april 2024 and lumpectomy), Osteopenia, CAD, family hx of brain aneurysm (mom), glaucoma Social: , has a place in [place], goes there in the Winter Surgery: R breast lumpectomy, bilat breast implants, tummy tuck, L bunionectomy Family hx: Mom and Dad . 2 children Girls (Dtr Gi and Lelia also my patients) Health Maintenance: Mammo Feb 2024 Tdap reports UTD in 10 years. PVC 20 done 2019 per report Dexa 2024, osteopenia Pap appt w/ doug scheduled this year EGD Dr Amin 2023 Colon 2021 + polyp, Dr Amin Specialists: [facility] KEO Ayala [employer] [facility] Here today for c/o L hip pain: Left anterior hip pain stabbing intermittent in nature ongoing for months worse since onset she saw her cancer doctor recently and recommended to fu with me Alleviating factors: APAP Exacerbating: applying pressure over the hip bone causes pain ; movement; laying on it. Hip cracks when moving leg through ROM, specifically leg raises when laying. Denies fever, chills, redness to joint. Denies overt injury. Was seen in walk in 2 weeks ago for URI w/ SOB given medications relieved sx for a short period of time Had PFT 10/18/24 - report reviewed. Sx worse at night Feels crackling in chest SOB w/ exertion No chest pain Active w/ Pulm Needs flu shot Exam: Awake alert NAD RRR LS clear throughout, occassional tight cough noted during exam. No distress. Speaking in full sentences. LLE neurovasc intact. Pain over pelvis and great trochanter with palpation and ROM all directions. No rash, no edema, no redness. Plan CXR Combivent FU with Pulm Xray L hip and pelvis Cont apap i will fu once results are avail Flu shot today. Total time spent caring for the patient today was 30 minutes. This includes time spent before the visit reviewing the chart, time spent during the visit, and time spent after the visit on documentation, reviewing laboratory results, diagnostic imaging, medications, performing a medically necessary evaluation, counseling on diagnoses, care coordination, ordering appropriate tests, ordering appropriate medications, review of tests performed by other providers, reporting test results with the patient, communication with other healthcare providers. [facility] Medical History (Updated 10/27/24 @ 15:22 by Shani James [facility]) Asthma Blockage of coronary artery of heart Breast cancer (~02/2024) DJD (degenerative joint disease) Eczema GERD (gastroesophageal reflux disease) Glaucoma Heart disease HTN (hypertension) Hx of mammogram (~02/2024) Osteopenia (~2024) Surgical History (Updated 07/11/24 @ 10:15 by Shani James [facility]) H/O colonoscopy (~2021) History of esophagogastroduodenoscopy (EGD) History of laparoscopic appendectomy Hx of breast augmentation Hx of breast implants, bilateral (~2007) Hx of cosmetic surgery Family History (Updated 07/11/24 @ 10:11 by Samy Henriquez MA) Father Asthma HTN (hypertension) Cardiovascular disease Mother Asthma HTN (hypertension) High cholesterol Sister Asthma Cardiovascular disease Brother Asthma Cardiovascular disease Social History (Updated 07/11/24 @ 09:49 by Samy Henriquez MA) Household Members: Spouse Both parents involved: No Caregiver staying overnight: No Housing: House Are you a primary progressive care nurse to a significant other at home: No Do you presently have visiting nurse or other home services: No 75 years or older and lives alone: No Alcohol intake: current Alcohol intake frequency: a few times a month Patient Tobacco Use Status: Never used Tobacco e-Cigarette/Vaping Use: Never Used Second Hand Smoke Exposure: No Patient : No service: No Current occupational status: retired Current occupational exposures/hazards: No Cognitive needs: No Hearing needs: No Vision needs: Yes (wear glasses) Questionnaire Thrive Questionnaire Date Thrive assessed: 07/08/24 I am a: Patient What is your living situation today?: I have a steady place to live Within the past 12 months, did the food you bought not last and you didn't have the money to get more?: Never true Within the past 12 months, did you worry whether your food would run out before you got money to buy more?: Never true Do you have trouble paying for medicines?: No Do you have trouble getting transportation to medical appointments?: No Do you have trouble paying your heating and electricity bill?: No Do you have trouble taking care of your child, family member or friend?: No Do you have trouble with day-to-day activities such as bathing, preparing meals, shopping, managing finances, etc.?: No Are you currently unemployed and looking for a job?: No Are you interested in more education?: No Please select the resources that you would like help with: None Currently or been in a relationship where the following occur: No concerns reported THRIVE Score: 0 ROSMERY-7 AMB Questionnaire ROSMERY-7 Date ROSMERY - 7 assessed: 09/27/24 Source: Developed by Drs. Mohsen Aranda, Ninfa Barnhart, Jl Rayomnd and colleagues, with an educational maynor from [employer]. Physical exam (Primary Care) Vital Signs: Last Vital Signs Temp 98.0 F 10/27/24 15:00 Pulse 89 10/27/24 15:00 Resp 16 10/27/24 15:00 BP 133/60 10/27/24 15:00 Pulse Ox 98 10/27/24 15:00 Oxygen Delivery Method Room Air 10/27/24 15:00 BMI result Body Mass Index 28.3 Tobacco/Smoking Status: Tobacco use Status Tobacco use date assessed 10/27/24 10/27/24 15:02 Patient Tobacco Use Status Never used Tobacco 10/27/24 15:02 e-Cigarette/Vaping Use Never Used 10/27/24 15:02 Thrive Assessment: Date of Thrive Assessment Date Thrive assessed 07/08/24 10/27/24 15:02 Currently or been in a relationship where the following occur: No concerns reported Results Reviewed Results Reviewed: Coding Level of Care Code Est Pt Level 4 (07049) Complex EM visit Add On G2211 Diagnoses Immunization counseling Z71.85 Influenza vaccination administered at current visit Z23 SOB (shortness of breath) R06.02 Left hip pain M25.552 Pelvic pain R10.2 Assessment & Plan Assessment & Plan (1) Immunization counseling: Code(s): Z71.85 - Encounter for immunization safety counseling Category: Medical (2) Influenza vaccination administered at current visit: Code(s): Z23 - Encounter for immunization Category: Medical (3) SOB (shortness of breath): Code(s): R06.02 - Shortness of breath Category: Medical (4) Left hip pain: Code(s): M25.552 - Pain in left hip Category: Medical (5) Pelvic pain: Code(s): R10.2 - Pelvic and perineal pain Category: Medical Plan . Orders: Orders XR chest 2V Today M25.552 - Pain in left hip, R06.02 - Shortness of breath, R10.2 - Pelvic and perineal pain XR hip LT w PEL1V Today M25.552 - Pain in left hip, R10.2 - Pelvic and perineal pain Influenza [id number] Immunization Today Z23 - Encounter for immunization Medications: New ipratropium-albuterol 20-100 mcg/actuation (Combivent Respimat) space evenly during waking hours 1 puff inhalation QID 4 grams 0RF prednisolone acetate 1% 1 drp ophthalmic (eye) BID 5 mL 0RF Fluarix [id number] (PF) (flu vac ts (6mos up)-PF) 0.5 mL IM ONCE 0.5 mL 0RF NS Z23 - Encounter for immunization
--- OUTSIDE RECORDS SUMMARY | 2024-10-27 14:54 | XMS_ITS | Clinical Summary ---
Author Organization [facility] Address [address] [facility] [address] [place] [address] Phone Care Team Providers Care Computational Geneticist Name Role Phone Luis Amin MD Unavailable [phone] Unknown, Unknown Primary Care Provider Unavai lable Allergies Active Allergy Reactions Criticality Noted Date Comments Moxifloxacin Hives High 07/23/2021 And rash Medications acetaminophen (TYLENOL) 325 mg tablet Take 1 tablet by mouth every 6 (six) hours as needed. Active calcium carbonate (OS-SINAI) 1,500 mg (600 mg elemental) tablet Take 1 tablet by mouth daily. with meals Active multivitamin per tablet ONE DAILY Orally DAILY Active Medication-Free Text Biotin , Sig: Once daily Active UBIDECARENONE (CO Q-10 ORAL) Once daily Active COMBIGAN 0.2-0.5 % ophthalmic solutionIndication s:right eye 1 drop 2 (two) times a day. Indications: right eye 05/21/19 18 Active diclofenac sodium (VOLTAREN) 1 % Gel APPLY 1 GM TO AFFECTED AREA 3 TIMES A DAY 11/02/19 20 Active nystatin cream Apply 1 application topically as needed. 30 g 2 06/21/19 21 Active cholecalciferol (VITAMIN D3) 2,000 unit tablet Take 1,000 Units by mouth daily. Active albuterol 90 mcg/actuation inhalerIndications :Moderate persistent asthma with acute exacerbation Inhale 2 puffs into the lungs every 4 (four) hours as needed for wheezing. 18 g 2 02/10/19 22 Active VITAMIN A ORAL Take 1 capsule by mouth daily. 07/24/19 22 Active fluorometholone (FLAREX) 0.1 % ophthalmic suspension Place 1 drop into each eye 4 (four) times a day. Active fluticasone propionate (FLONASE) 50 mcg/actuation nasal spray 1 spray per nostril bid till vertigo/ear symptoms resolve 16 g 12 08/28/19 23 Active betamethasone dipropionate 0.05 % ointment Apply topically 2 (two) times a day. To ear canal 15 g 2 11/27/19 23 Active esomeprazole (NEXIUM) 40 MG capsule Take 1 capsule (40 mg total) by mouth daily before breakfast. 90 capsule 3 11/27/19 23 Active albuterol 2.5 mg /3 mL (0.083 %) nebulizer solution Take 3 mL (2.5 mg total) by nebulization every 6 (six) hours as needed. 100 mL 1 11/27/19 23 Active lisinopril (ZESTRIL) 10 MG tablet Take 1 tablet (10 mg total) by mouth daily. 90 tablet 3 11/27/19 23 Active atorvastatin (LIPITOR) 40 MG tabletIndications: Mixed hyperlipidemia Take 1 tablet (40 mg total) by mouth daily. 90 tablet 3 12/03/19 23 Active hydroCHLOROthiazid e (MICROZIDE) 12.5 mg capsuleIndications :Electrolyte imbalance risk take 1 capsule by mouth every day 90 capsule 3 03/02/19 24 Active Active Problems Problem Noted Date Diagnosed Date S/P panniculectomy 11/26/2022 11/26/2022 Status post appendectomy 11/26/2022 023 Vitamin D deficiency 08/27/2022 Assessment & Plan (08/27/2022 3:05 PM EDT): Need to make sure she's taking daily vitamin D Atopic dermatitis 08/27/2022 Assessment & Plan (08/27/2022 3:00 PM EDT): ? Steroid dependent dermatitis Long discussion Advised her to stop using Betamethasone ointment every day on her outer ears Discontinue that Start moisturizing bid with cetaphil Vertigo 07/27/2018 Assessment & Plan (08/27/2022 3:04 PM EDT): Serous OM from seasonal allergies and Eustacian tube dysfunction likely causing this I think the Vertigo is related to fluid in your ears from Eustacian tube dysfunction due to probable seasonal allergies Try the Flonase and Zyrtec 10mg daily till symptoms resolved Concurrently use Afrin Nasal [place] for 5 days only Assessment & Plan (08/10/2022 11:36 AM EDT): Dizziness unclear if vertigo or lightheadedness. Patient was positioned in the supine position with eyes open and no nystagmus also no vertigo and then promptly repositioned into the sitting position also without any vertigo. Most likely not benign positional vertigo, the headaches without prior history of headaches has me somewhat concerned so we will obtain a CT scan of the head without contrast. That can be done over at . There were no focal deficits. If there is any pathology will proceed to MRI with contrast. For symptomatic management continue with the Tylenol for headache relief, if it is inadequate try Excedrin. For the dizziness try meclizine, has a home prescription of 12.5 mg may increase to 25 mg p.o. 3 times daily we can rewrite the prescription if that is effective. Drink plenty of water to reduce likelihood of headaches. We will follow-up with the patient depending on clinical course, when she is feeling dizzy I would like her to check her blood pressure at home, here in the office her blood pressure was normal but she was asymptomatic at this time. Reactive depression (situational) 06/15/2018 Chiari I malformation 05/21/2017 Assessment & Plan (08/27/2022 3:02 PM EDT): Unclear if vertigo related to this vs. Eustacian tube dysfunction Her prior neurologist, Dr. Kruse, has retired Needs new neurologist Refer to [facility] Chronic gastritis without bleeding 05/21/2017 Essential hypertension 05/21/2017 Assessment & Plan (08/27/2022 3:03 PM EDT): ? Recurrent HTN Patient to work on diet and exercise Unclear if controlled, Check Bps, 2x per week, call if persistantly > 140/90, Goal BP is < or = to 130/80 External hemorrhoids 05/21/2017 Gastroesophageal reflux disease without esophagi tis 05/21/2017 Glaucoma of right eye 05/21/2017 Irritable bowel syndrome wit h both constipation and diarrhea 05/21/2017 Mixed hyperlipidemia 05/21/2017 Moderate persistent asthma without complication 05/21/2017 Eczema of both external ears 05/21/2017 Assessment & Plan (08/27/2022 3:03 PM EDT): See above re atopic dermatitis Resolved Problems Problem Noted Date Diagnosed Date Resolved Date Dyspnea 12/11/2021 04/09/2022 Assessment & Plan (12/18/2021 1:28 PM EST): Overall feeling much better States 60% better But still bothered by cough at night Using Cough Syrup with codeine but not really helping Add Tessalon Perls Call if not getting better Currenlty trying to locate CXR from [facility] Immunizations Immunization Administration Dates Next Due COVID-19 (Pre-11/30) Moderna Vaccine, mRNA, PF 06/26/2020,05/29/2020 INFLUENZA, SPLIT VIRUS, TRIVALENT PF 11/08/2014 INFLUENZA, SPLIT VIRUS, TRIV ALENT W/ PRESERVATIVE IM 12/31/2020,11/27/2020,11/09/2018,11/10,10/22/2015 Influenza Quadrivalent Prese rvative Free IM 11/26/2022,12/18/2021,12/13/2019,12/01,11/24/2017,11/11/2015 Influenza trivalent preserva tive free intradermal 11/25/2012 Pneumococcal conjugate PCV20 12/18/2021 Pneumococcal polysaccharide PPSV23 12/22/2019 Tdap 08/03/2013 Zoster recombinant 08/04/2021,05/06/2021 Family History Medical History Relation Comments Heart disease Brother 1 Hypertension Brother 1 Heart disease Brother 2 Hypertension Brother 2 Diabetes mellitus Daughter 1 No Known Problems Daughter 2 Diabetes mellitus Father Hypertension Father Stroke Father Hypertension Mother CV disease Sibling 1 Hypertension Sibling 1 Relation Status Comments Brother 1 Alive Brother 2 Alive Daughter 1 Alive Daughter 2 Alive Father (Age 63) smoker Mother Sibling 1 Sibling 2 Social History Tobacco Use Types Packs/Day Years Used Date Smoking Tobacco: Never Smokeless Tobacco: Never Tobacco Cessation:Counseling Given: Not Answered Alcohol Use Standard Drinks/Week Comments No 0 [...] food would run out Not on file 02/23 /2023 In the past 12 months have y ou been in a relationship with a person who hurts, threatens, or tries to control you? No 04/02/2022 Comments No Sex and Gender Information Value Date Recorded Sex Assigned at Not on file Legal Sex Female 9:47 PM EDT Gender Identity Not on file Sexual Orientation Not on file Last Filed Vital Signs Vital Sign Reading Time Taken Comments Blood Pressure 132/78 11/26/2022 3:09 PM EDT Pulse 80 11/26/2022 3:09 PM EDT Temperature 36.7 C (98.1 F) 08/27/2022 2:05 PM EDT Respiratory Rate 16 11/26/2022 3:09 PM EDT Oxygen Saturation 98% 11/26/2022 3:09 PM EDT Inhaled Oxygen Concentration - - Weight 64 kg (141 lb) 11/26/2022 3:09 PM EDT Height 147.3 cm (4' 9.99 ) 11/26/2022 3:09 PM ED T Body Mass Index 29.48 11/26/2022 3:09 PM EDT Plan of Treatment Health Maintenance Due Date Last Done Comments COLOGUARD 2005 FIT TEST 2005 FOBT 2005 SIGMOIDOSCOPY 2005 VIRTUAL COLONOSCOPY 2005 RSV VACCINE (1 - Risk 60-74 years 1-dose series) 2020 PAP SMEAR 05/11/2022 05/11/2017, 10/18/2013 DEPRESSION SCREENING 04/02/2023 04/02/2022 BLOOD PRESSURE 05/28/2023 11/26/2022 Adult Td,Tdap Booster 08/04/2023 08/03/2013 CREATININE LEVEL 11/28/2023 11/27/2022, 11/2022, 08/01/2021, Additional history exists POTASSIUM LEVEL 03/20/2024 03/20/2023, 11/09, 04/17/2022, Additional history exists MAMMOGRAM 04/09/2024 04/09/2022, 03/0 02/2018, 07/02/2016, Additional history exists INFLUENZA VACCINE (#1) 2024 , 12/18/2021, 12/31/2020, Additional history exists COVID-19 VACCINE ( season) 2024 06/26/2020, 05/29/2020 SCREENING FOR DIABETES 11/27/2025 11/27/2022 COLONOSCOPY 07/29/2026 07/29/2021, 01/01/2016 COLORECTAL CANCER SCREENING 07/29/2026 LIPID PANEL 03/21/2028 03/21/2023, 11/09, 04/17/2022, Additional history exists HEPATITIS C SCREENING Completed 11/24/2017 HIV ONE-TIME SCREENING (18-65 YEARS) Completed 09/26/2019 ZOSTER VACCINES Completed 08/04/2021, 05/06/2021 PNEUMOCOCCAL VACCINES (50+ years) Completed 12/18/2021, 12/22/2019 SMOKING STATUS SCREENING (Once After 26 Yrs) Completed 11/26/2022 HEPATITIS A VACCINES Aged Out No long er eligible based on patient's age to complete this topic HIB VACCINES Aged Out No longer eligi ble based on patient's age to complete this topic MENINGOCOCCAL VACCINES (ACWY) Aged Out No longer eligible based on patient's age to complete this topic MENINGOCOCCAL VACCINES (B) Aged Out N o longer eligible based on patient's age to complete this topic Medical Devices Not on file Procedures Procedure Name Priority Date/Time Associated Diagnosis Comments LIPID PANEL Routine 11/27/2022 9:31 AM EDT Mixed hyperlipidemia COMPREHENSIVE METABOLIC PANEL Routine 11/27/2022 9:31 AM EDT Mixed hyperlipidemia BI MAMMOGRAM SCREENING (BILATERAL) Routine 04/09/2022 2:00 PM EST Encounter for screening mammogram for malignant neoplasm of breast HM COLONOSCOPY FOR RESULT ENTRY ONLY Routine 07/29/2021 HEPATITIS C ANTIBODY, QUALITATIVE Routine 11/24/2017 10:41 AM EDT Elevated LFTs HM PAP SMEAR FOR RESULT ENTRY ONLY Routine 05/11/2017 from Last 3 Months or Most Recently Relevant to Health Maintenance Results * (ABNORMAL) Comprehensive metabolic panel (11/27/2022 9:31 AM EDT) SODIUM 140 133 - 146 mmol/L [facility] POTASSIUM 4.5 3.3 - 5.1 mmol/L [facility] CHLORIDE 104 96 - 108 mmol/L [facility] CO2 28 21 - 35 mmol/L [facility] BUN 11 6 - 19 mg/dL [facility] CREATININE 0.70 0.5 - 1.5 mg/dL [facility] GLUCOSE 97 70 - 99 mg/dL [facility] ALBUMIN 4.4 3.9 - 4.8 g/dL [facility] TOTAL PROTEIN 7.0 6.5 - 8.0 g/dL [facility] CALCIUM 9.4 8.4 - 10.3 mg/dL [facility] ALKALINE PHOSPHATASE 123(H) 39 - 117 U/L [facility] TOTAL BILIRUBIN 0.4 0.0 - 1.2 mg/dL [facility] AST 23 0 - 37 U/L [facility] ALT 26 0 - 40 U/L [facility] GLOBULIN 2.6 1 - 4.8 g/dL [facility] EGFR 98 >59 mL/min/1.7 3m2 [facility] Comment:Estimated glomerular filtration rate calculated using the CKD-EPI refit equation. ANION GAP 13 10 - 20 mmol/L [facility] Blood 11/27/2022 9:31 AM EDT 11/27/2022 1:28 PM EDT us Jenny Mcbride NP LAB BLOOD ORDERABLES Final Resu lt [facility] [address] [place] [address] * (ABNORMAL) Lipid panel (11/27/2022 9:31 AM EDT) HDL 48 mg/dL [facility] Comment: Interpretation <40 mg/dL: Low HDL cholesterol (major risk factor for CHD) Greater than or equal to 60 mg/dL: High HDL cholesterol ( negative risk factor for CHD) HDL - cholesterol is affected by a number of factors, e.g. smoking, excerise, hormones, sex and age. CHOLESTEROL 245(H) 0 - 240 mg/dL [facility] TRIGLYCERIDES 191(H) 30 - 160 mg/dL [facility] LDL 159(H) 50 - 129 mg/dL [facility] Comment: LDL levels in terms of risk for coronary heart disease: <100 mg/dL: Optimal 100-129 mg/dL: Near or above optimal 130-159 mg/dL: Borderline high 160-189 mg/dL: High >190 mg/dL: Very High CARDIAC RISK RATIO 5.1(H) 3.3 - 4.4 [facility] Blood 11/27/2022 9:31 AM EDT 11/27/2022 9:33 AM EDT Jenny Mcbride NP LAB BLOOD ORDERABLES Final Resu lt [facility] [address] [place] [address] * COLONOSCOPY FOR RESULT ENTRY ONLY (07/29/2021) Jenny Mcbride NP HEALTH MAINTENANCE Edited Resul t - Final * BI MAMMOGRAM DIAGNOSTIC WITH TOMOSYNTHESIS WITH CAD (BILATERAL) (04/08/2018 1:17 PM EST) Anatomical Region Laterality Modality Breast Left, Breast Right, Breast Bilateral Bila teral Mammography 04/08/2018 1:28 PM EST Impressions 04/08/2018 1:32 PM EST Stable appearance relative to prior imaging. No findings of concern for malignancy are seen. No explanation for previous right breast pain is evident. The patient can resume routine mammography. The results were given to the patient by the technologist at the time of the examination. BI-RADS CATEGORY: 2 - Benign finding. DENSITY: There are scattered fibroglandular densities. SIGNS AND SYMPTOMS: Right breast pain POS - [id number] Narrative 04/08/2018 1:32 PM EST Full field digital mammography was obtained with computer-aided detection. 2-D and 2-D C view imaging obtained as well as tomosynthesis images in two projections of the both breasts. Both implant displaced and non-displaced views are obtained. Comparison with prior imaging from 07/02/2016 is made with older imaging dating back as far as 06/16/2011 also reviewed. There is scattered fibroglandular density evident in both breasts. The exam is performed because of pain in the 9:00 region of the right breast. No explanation for right breast pain is seen. The implants appear intact. No dominant soft tissue masses concern, suspicious clustered calcifications, skin changes of concern, or architectural distortion is noted. Minor scattered punctate calcifications noted. Procedure Note Moises Schmitt MD - 04/08/2018 Full field digital mammography was obtained with computer-aided detection.2-D and 2-D C view imaging obtained as well as tomosynthesis images in twoprojections of the both breasts. Both implant displaced and non-displacedviews are obtained. Comparison with prior imaging from 07/02/2016 is made with older imagingdating back as far as 06/16/2011 also reviewed. There is scattered fibroglandular density evident in both breasts. Theexam is performed because of pain in the 9:00 region of the rightbreast. No explanation for right breast pain is seen. The implants appear intact.No dominant soft tissue masses concern, suspicious clusteredcalcifications, skin changes of concern, or architectural distortion isnoted. Minor scattered punctate calcifications noted. IMPRESSION: Stable appearance relative to prior imaging. No findings of concern formalignancy are seen. No explanation for previous right breast pain isevident. The patient can resume routine mammography. The results were given to the patient by the technologist at the time ofthe examination. BI-RADS CATEGORY: 2 - Benign finding. DENSITY: There are scattered fibroglandular densities. SIGNS AND SYMPTOMS: Right breast pain POS - [id number] Jenny Mcbride NP IMG MG EXAMS Final Result * Hepatitis C antibody, qualitative (11/24/2017 10:41 AM EDT) HCV Negative Negative [facility] Comment: This is a screening test and should be confirmed with molecular testing Blood 11/24/2017 10:4 1 AM EDT 11/24/2017 10:42 AM EDT Jenny Mcbride NP LAB BLOOD ORDERABLES Final Resu lt [facility] [address] [place] [address] * PAP SMEAR FOR RESULT ENTRY ONLY (05/11/2017) Historical Provider MD HEALTH MAINTENANCE Final Result from Last 3 Months or Most Recently Relevant to Health Maintenance [place] [address] [address] [place] [address] [address] [place] [address] [place] [address] [place] [address] PPO EPO [facility] PPO EPO [facility] PPO EPO [facility] PPO EPO Care Teams Computational Geneticist Relationship Specialty Start Date End Date Unknown, Unknown, MD PCP - General 04/20/23 Luis Amin MD [address] [place] [phone] Gastroenterology 11/26/22 Additional Source Comments The information contained in this document represents components of the legal health record. It is not the complete legal health record.[facility]
--- OUTSIDE RECORDS SUMMARY | 2024-10-27 14:54 | XMS_ITS | Encounter Summary ---
Author Organization [facility] Address [address] [facility] [address] [place] [address] Phone Care Team Providers Care Gynecological Assistant Name Role Phone Ned Manuel MD Unavailable Shaun Goodrich MD Unavailable [phone] Jenny Mcbride MACHINE ASSEMBLER SUPERVISOR Unavailable [phone] Jenny Mcbride MACHINE ASSEMBLER SUPERVISOR Primary Care Provider Jenny Mbcride MACHINE ASSEMBLER SUPERVISOR Primary Care Provider Luis Amin MD Unavailable Unknown, Unknown Primary Care Provider Maria Teresa baker Encounter Details Date Type Department Care Team (Late st Contact Info) Description 02/24/2018 Ancillary Orders [facility],Outside Imaging [address] [place] [address] System, Provider Not In, PhD [address] [address] Social History Tobacco Use Types Packs/Day Years [...] encounter Results * Mammogram Outside (No Interpretation) (06/13/2015 12:00 AM EDT) Narrative SYSTEMGENERATED, DOCUMENTATION - 02/24/2018 11:04 AM EST This study is for PACS storage only and not for interpretation. us Provider Not In System PhD IMG OUTSIDE IMAGING W /OUT INTERPRETATION Final Result documented in this encounter Visit Diagnoses Not on filedocumented in this encounter Additional Health Concerns Assessment Noted Time PHQ-2 Depression Total Score: 0 02/18/19 19 2:18 PM EST documented as of this encounter Care Teams Gynecological Assistant Relationship Specialty Start Date End Date Jenny Mcbride, MACHINE ASSEMBLER SUPERVISOR [address] [place] [address] PCP - General Family Medicine 05/26/17 09/20/19 Jenny Mcbride MACHINE ASSEMBLER SUPERVISOR [address] [place] [address] PCP - General Family Medicine 09/21/19 04/19/23 Unknown, Unknown, MD PCP - General 04/20/23 Ned Manuel MD [address] [place] [address] Historical LMR Provider 11/25/16 02/15/21 Shaun Goodrich MD [address] [place] [address] Historical LMR Provider 11/25/16 02/15/21 Jenny Mcbride MACHINE ASSEMBLER SUPERVISOR [address] [place] [address] Historical LMR Provider 11/25/16 11/25/22 Luis Amin MD [address] [place] [address] [address] [place] [address] Gastroenterology 11/26/22 documented as of this encounter Additional Source Comments The information contained in this document represents components of the legal health record. It is not the complete legal health record.[facility]
--- OUTSIDE RECORDS SUMMARY | 2024-10-27 14:54 | XMS_ITS | Encounter Summary ---
Author Organization [facility] Address [address] [facility] [address] [place] [address] Phone Care Team Providers Care Carton Making Machine Operator Name Role Phone Ned Manuel MD Unavailable Shaun Goodrich MD Unavailable [phone] Jenny Mcbride PIER HAND HELPER Unavailable [phone] Jenny Mcbride PIER HAND HELPER Primary Care Provider Jenny Mcbride PIER HAND HELPER Primary Care Provider Luis Amin MD Unavailable [phone] Unknown, Unknown Primary Care Provider Maria Teresa baker Encounter Details Date Type Department Care Team (Late st Contact Info) Description 02/24/2018 Ancillary Orders [facility],Outside Imaging [address] [place] [address] System, Provider Not In, PhD [address] [address] Social History Tobacco Use Types Packs/Day Years [...] documented as of this encounter Results * US Breast Outside [...] documented as of this encounter Care Teams Carton Making Machine Operator Relationship Specialty Start Date End Date Jenny Mcbride, PIER HAND HELPER [address] [place] [address] PCP - General Family Medicine 05/26/17 09/20/19 Jenny Mcbride PIER HAND HELPER [address] [place] [address] PCP - General Family Medicine 09/21/19 04/19/23 Unknown, Unknown, MD PCP - General 04/20/23 Ned Manuel MD [address] [place] [address] Historical LMR Provider 11/25/16 02/15/21 Shaun Goodrcih MD [address] [place] [address] Historical LMR Provider 11/25/16 02/15/21 Jenny Mcbride, PIER HAND HELPER [address] [place] [address] Historical LMR Provider 11/25/16 11/25/22 Luis Amin MD [address] [place] [address] [address] [place] [address] Gastroenterology 11/26/22 documented as of this encounter Additional Source Comments The information contained in this document represents components of the legal health record. It is not the complete legal health record.[facility]
--- OUTSIDE RECORDS SUMMARY | 2024-10-27 14:54 | XMS_ITS | Encounter Summary ---
Author Organization [facility] Address [address] [facility] [address] [place] [address] Phone Care Team Providers Care Furniture Technician Name Role Phone Ned Manuel MD Unavailable Shaun Goodrich MD Unavailable [phone] Jenny Mcbride RECEIVING SUPERVISOR Unavailable [phone] Jenny Mcbride RECEIVING SUPERVISOR Primary Care Provider Jenny Mcbride RECEIVING SUPERVISOR Primary Care Provider Luis Amin MD Unavailable Unknown, Unknown Primary Care Provider Maria Teresa baker Encounter Details Date Type Department Care Team (Late st Contact Info) Description 02/24/2018 Ancillary Orders [facility],Outside Imaging [address] [place] [address] System, Provider Not In, PhD [address] [address] Social History Tobacco Use Types Packs/Day Years [...] encounter Results * Mammogram Outside (No Interpretation) (03/13/2013 12:00 AM EST) Narrative SYSTEMGENERATED, DOCUMENTATION - 02/24/2018 11:06 AM EST This study is for PACS storage only and not for interpretation. us Provider Not In System PhD IMG OUTSIDE IMAGING W /OUT INTERPRETATION Final Result documented in this encounter Visit Diagnoses Not on filedocumented in this encounter Additional Health Concerns Assessment Noted Time PHQ-2 Depression Total Score: 0 02/18/19 19 2:18 PM EST documented as of this encounter Care Teams Furniture Technician Relationship Specialty Start Date End Date Jenny Mcbride, RECEIVING SUPERVISOR [address] [place] [address] PCP - General Family Medicine 05/26/17 09/20/19 Jenny Mcbride RECEIVING SUPERVISOR [address] [place] [address] PCP - General Family Medicine 09/21/19 04/19/23 Unknown, Unknown, MD PCP - General 04/20/23 Ned Manuel MD [address] [place] [address] Historical LMR Provider 11/25/16 02/15/21 Shaun Goodrich MD [address] [place] [address] Historical LMR Provider 11/25/16 02/15/21 Jenny Mcbride, RECEIVING SUPERVISOR [address] [place] [address] Historical LMR Provider 11/25/16 11/25/22 Luis Amin MD [address] [place] [address] [address] [place] [address] Gastroenterology 11/26/22 documented as of this encounter Additional Source Comments The information contained in this document represents components of the legal health record. It is not the complete legal health record.[facility]
--- OUTSIDE RECORDS SUMMARY | 2024-10-27 14:54 | XMS_ITS | Encounter Summary ---
Author Organization [facility] Address [address] [facility] [address] [place] [address] Phone Care Team Providers Care Heel Emery Buffer Name Role Phone Ned Manuel MD Unavailable Shaun Goodrich MD Unavailable [phone] Jenny Mcbride THREAD LASTER Unavailable [phone] Jenny Mcbride THREAD LASTER Primary Care Provider Jenny Mcbride THREAD LASTER Primary Care Provider Luis Amin MD Unavailable Unknown, Unknown Primary Care Provider Maria Teresa baker Encounter Details Date Type Department Care Team (Late st Contact Info) Description 02/24/2018 Ancillary Orders [facility],Outside Imaging [address] [place] [address] System, Provider Not In, PhD [address] [address] Social History Tobacco Use Types Packs/Day Years [...] documented as of this encounter Care Teams Heel Emery Buffer Relationship Specialty Start Date End Date Jenny Mcbride, THREAD LASTER [address] [place] [phone] PCP - General Family Medicine 05/26/17 09/20/19 Jenny Mcbride THREAD LASTER [address] [place] [address] PCP - General Family Medicine 09/21/19 04/19/23 Unknown, Unknown, MD PCP - General 04/20/23 Ned Manuel MD [address] [place] [address] Historical LMR Provider 11/25/16 02/15/21 Shaun Goodrich MD [address] [place] [address] Historical LMR Provider 11/25/16 02/15/21 Jenny Mcbride THREAD LASTER [address] [place] [address] Historical LMR Provider 11/25/16 11/25/22 Luis Amin MD [address] [place] [address] [address] [place] [address] Gastroenterology 11/26/22 documented as of this encounter Additional Source Comments The information contained in this document represents components of the legal health record. It is not the complete legal health record.[facility]
--- OUTSIDE RECORDS SUMMARY | 2024-10-27 14:54 | XMS_ITS | Encounter Summary ---
Author Organization [facility] Address [address] [employer] [facility] [address] [place] [address] Phone Care Team Providers Care Environmental Permitting Specialist Name Role Phone Ned Manuel MD Unavailable [phone] Shaun Goodrich MD Unavailable Jenny Mcbride UROLOGY SURGEON Unavailable [phone] Jenny Mcbride UROLOGY SURGEON Primary Care Provider Jenny Mcbride UROLOGY SURGEON Primary Care Provider Luis Amin MD Unavailable Unknown, Unknown Primary Care Provider Maria Teresa baker Encounter Details Date Type Department Care Team (Late st Contact Info) Description 02/24/2018 Ancillary Orders [facility],Outside Imaging [address] [place] [address] System, Provider Not In, PhD [address] [address] Social History Tobacco Use Types Packs/Day Years [...] documented as of this encounter Care Teams Environmental Permitting Specialist Relationship Specialty Start Date End Date Jenny Mcbride, UROLOGY SURGEON [address] [place] [address] PCP - General Family Medicine 05/26/17 09/20/19 Jenny Mcbride UROLOGY SURGEON [address] [place] [address] PCP - General Family Medicine 09/21/19 04/19/23 Unknown, Unknown, MD PCP - General 04/20/23 Ned Manuel MD [address] [place] [address] Historical LMR Provider 11/25/16 02/15/21 Shaun Goodrich MD [address] [place] [address] Historical LMR Provider 11/25/16 02/15/21 Jenny Mcbride, UROLOGY SURGEON [address] [place] [address] Historical LMR Provider 11/25/16 11/25/22 Luis Amin MD [address] [place] [address] [address] [place] [address] Gastroenterology 11/26/22 documented as of this encounter Additional Source Comments The information contained in this document represents components of the legal health record. It is not the complete legal health record.[facility]
--- OUTSIDE RECORDS SUMMARY | 2024-10-27 14:54 | XMS_ITS | Encounter Summary ---
Author Organization [facility] Address [address] [facility] [address] [place] [address] Phone Care Team Providers Care Roll Over Loader Name Role Phone Ned Manuel MD Unavailable [phone] Shaun Goodrich MD Unavailable [phone] Jenny Mcbride COUNTER TENDER Unavailable [phone] Jenny Mcbride COUNTER TENDER Primary Care Provider Jenny Mcbride COUNTER TENDER Primary Care Provider Luis Amin MD Unavailable Unknown, Unknown Primary Care Provider Maria Teresa baker Encounter Details Date Type Department Care Team (Late st Contact Info) Description 02/24/2018 Ancillary Orders [facility],Outside Imaging [address] [place] [address] System, Provider Not In, PhD [address] [address] Social History Tobacco Use Types Packs/Day Years [...] encounter Results * Mammogram Outside (No Interpretation) (07/02/2016 12:00 AM EDT) Narrative SYSTEMGENERATED, DOCUMENTATION - 02/24/2018 11:03 AM EST This study is for PACS storage only and not for interpretation. us Provider Not In System PhD IMG OUTSIDE IMAGING W /OUT INTERPRETATION Final Result documented in this encounter Visit Diagnoses Not on filedocumented in this encounter Additional Health Concerns Assessment Noted Time PHQ-2 Depression Total Score: 0 02/18/19 19 2:18 PM EST documented as of this encounter Care Teams Roll Over Loader Relationship Specialty Start Date End Date Jenny Mcbride, COUNTER TENDER [address] [place] [address] PCP - General Family Medicine 05/26/17 09/20/19 Jenny Mcbride COUNTER TENDER [address] [place] [address] PCP - General Family Medicine 09/21/19 04/19/23 Unknown, Unknown, MD PCP - General 04/20/23 Ned Manuel MD [address] [place] [address] Historical LMR Provider 11/25/16 02/15/21 Shaun Goodrich MD [address] [place] [address] Historical LMR Provider 11/25/16 02/15/21 Jenny Mcbride COUNTER TENDER [address] [place] [address] Historical LMR Provider 11/25/16 11/25/22 Luis Amin MD [address] [place] [address] [address] [place] [address] Gastroenterology 11/26/22 documented as of this encounter Additional Source Comments The information contained in this document represents components of the legal health record. It is not the complete legal health record.[facility]
--- OUTSIDE RECORDS SUMMARY | 2024-10-27 14:55 | XMS_ITS | Clinical Summary ---
Author Organization [facility] Charity Engine Address [address] [place], [place] [address] Phone Care Team Providers Care Stylist Assistant Name Role Phone Shani James Primary Care Provider [phone] Allergies No known active allergies Medications hydrOXYzine HCL (ATARAX) 10 mg tablet Take 1 tablet (10 mg total) by mouth 1 (one) time each day if needed. 08/13/19 24 Active brimonidine (ALPHAGAN) 0.2 % ophthalmic solution 2 (two) times a day. Active magnesium sulfate 100 mg capsule Take 1 capsule by mouth 1 (one) time each day. Active albuterol HFA (PROAIR HFA ; PROVENTIL HFA ; VENTOLIN HFA) 90 mcg/actuation inhaler Inhale 2 Puffs into the lungs every 4 hours as needed for Cough or Wheezing. 08/06/19 24 Active atorvastatin (LIPITOR) 40 mg tablet Take 1 tablet (40 mg total) by mouth at bedtime. 90 each 3 02/07/20 24 025 Active betamethasone, augmented, (DIPROLENE) 0.05 % ointment Apply topically 2 (two) times a day. 30 g 2 02/07/20 24 Active hydroCHLOROthi azide 12.5 mg tablet Take 1 tablet (12.5 mg total) by mouth 1 (one) time each day. 90 each 3 02/07/20 24 12/30/2 025 Active coenzyme Q-10 30 mg capsule Take 1 capsule (30 mg total) by mouth 1 (one) time each day. Active acetaminophen (TYLENOL 8 HOUR) 650 mg 8 hr tablet Take 1 tablet (650 mg total) by mouth every 8 (eight) hours if needed for mild pain. Do not crush, chew, or split. Active ibuprofen (ADVIL,MOTRIN) 200 mg tablet Take 3 tablets (600 mg total) by mouth every 8 (eight) hours if needed for moderate pain. 90 tablet 08/31/19 25 Active anastrozole (ARIMIDEX) 1 mg TAKE 1 TABLET BY MOUTH (1 MG TOTAL) BY MOUTH DAILY SWALLOW WHOLE WITH A DRINK OF WATER 90 tablet 1 09/01/19 25 Active prednisoLONE acetate (PRED FORTE) 1 % ophthalmic suspension instill 1 drop into right eye twice a day 10/05/19 25 Active pantoprazole (PROTONIX) 40 mg EC tablet TAKE 1 TABLET (40 MG TOTAL) BY MOUTH 2 (TWO) TIMES A DAY BEFORE MEALS. DO NOT CRUSH, CHEW, OR SPLIT. 180 tablet 1 10/24/19 25 Active pantoprazole (PROTONIX) 40 mg EC tablet Take 1 tablet (40 mg total) by mouth 2 (two) times a day before meals. Do not crush, chew, or split. 180 each 1 02/07/20 24 025 Discontinued Active Problems Problem Noted Date Diagnosed Date Primary localized osteoarthrosis of ankle and fo ot 07/06/2024 History of stress fracture 05/03/2024 Invasive ductal carcinoma of breast, female, right (CMS/HCC V24, CMS/HCC V28) 03/15/2024 Cancer Staging:Pathologic:Stage IA(pT1c, pN0, cM0, G2, ER+, MO+, HER2-, Oncotype DX score: 5) - Signed by Bridget Allen MD on 05/10/2024 History of breast augmentation 03/15/2024 Precordial pain 01/04/2024 Coronary artery disease invo lving [place] coronary artery of [place] heart without angina pectoris 08/06/2023 Assessment & Plan (01/04/2024 12:45 PM EST): Pleasant 63-year-old woman presented to a hospital in [place] several months ago for evaluation of abrupt [...] both external ears 05/21/2017 Chiari I malformation ([facility] V24, [facility] V28) 05/21/2017 Chronic gastritis without bleeding 05/21/2017 External hemorrhoids 05/21/2017 Glaucoma of right eye 05/21/2017 Encounters Date Type Department Care Team Description 10/19/2024 9:45 AM EDT Office Visit [facility] Hematology Oncology [address] [place] [phone] Solitario Mercedes MD Invasive ductal carcinoma of breast, female, right ([facility] V24, [facility] V28) (Primary Dx); Lymphedema of breast 10/18/2024 1:13 PM EDT - 10/18/2024 11:59 PM EDT Hospital Encounter [facility] Pulmonary [address] [place] [address] Discharge Disposition: Home or Self Care 08/30/2024 2:30 PM EDT Office Visit Breast [address] [phone] Roseann Porter MD Invasive ductal carcinoma of breast, female, right ([facility] V24, [facility] V28) (Primary Dx); History of breast augmentation; Mass of upper inner quadrant of left breast 08/17/2024 12:58 PM EDT - 08/17/2024 11:59 PM EDT Hospital Encounter [facility] Radiation Oncology [address] [place] [phone] Yazmin Johnson NP Invasive ductal carcinoma of breast, female, right ([facility] V24, [facility] V28) (Primary Dx) Discharge Disposition: Home or Self Care from Last 3 Months Immunizations Name Administration Dates Next Due COVID-19 (Moderna) 6mo to le ss than 12yr 10/19/2023 Influenza Quadrivalent, 0.5m l, preservative free (Fluarix; FluLaval; Fluzone) ages 6mo and older (Afluria) 3yo and older 11/26/2022,12/18/2021,12/13/2019,12/01,11/24/2017,11/11/2015 Influenza trivalent, 0.5mL, preservative free (Fluarix; FluLaval; Fluzone) ages 6mo and older (Afluria) 3 years and older 11/22/2023,11/08/2014 Influenza trivalent, with pr eservative (Fluzone; Afluria) 6mo and older 12/31/2020,11/27/2020,11/09/2018,11/10,10/22/2015 Pneumococcal conjugate 20 va lent (Prevnar 20, PCV 20) 2mo and older 12/18/2021 Pneumococcal polysaccharide 23 valent (Pneumovax 23) 2yo and older 12/22/2019 Tdap Tetanus diptheria acell ular pertussis (Boostrix; Adacel) 7yo and older 08/03/2013 Zoster recombinant (Shingrix ) 19yo and older 08/04/2021,05/06/2021 influenza Split Preservative Free ID 11/25/2012 Surgical History Surgery Date Site/Laterality Comments FOOT SURGERY 02/08/1994 - 02/07/1995 Left BREAST ENHANCEMENT SURGERY W IMPLANT 02/08/2003 - 02/08/2004 Bilateral OTHER SURGICAL HISTORY 02/08/2009 - 02/07/2010 N/A tummy-tack BELT ABDOMINOPLASTY EYE SURGERY APPENDECTOMY 2003 Medical History Medical History Date Comments Mild intermittent asthma without complication Coronary artery disease invo lving [place] coronary artery of [place] heart without angina pectoris 08/06/2023 Primary hypertension 08/06/2023 GERD (gastroesophageal reflux disease) Mixed hyperlipidemia 08/06/2023 Migraine without status migrainosus, not intract able 08/06/2023 Carotid artery calcification B Blindness R EYE Diverticulosis Cancer (CMS/HCC V24, [facility] V28) r BREAST CA Breast cancer (CMS/[facility] V24, CMS/[facility] V28) Family History Medical History Relation Name Comments Heart disease Brother 1 Mata Bhatti Heart disease Brother 2 Hermilo Chago Diabetes Father Altaf Chago Heart attack Father Altaf Chago Aneurysm Mother Ovarian cancer Sister Suma Min Relation Name Status Comments Brother 1 Mata Bhatti Brother 2 Hermilo Bhatti Father Altaf Bhatti Maternal Grandfather Maternal Grandmother Mother Paternal Grandfather Paternal Grandmother Sister Suma Min Social History Tobacco Use Types Packs/Day Years Used Date Smoking Tobacco: Never Smokeless Tobacco: Never Tobacco Cessation:Counseling Given: Not Answered Alcohol Use Standard Drinks/Week Comments Not Currently [...] care for your loved ones. For example, vocational childcare teacher or elderly care for an older adult? [...] Master's degree (e.g., MA, MS, Shaun, MEd, PANMAN, AMAURY) 02/07/2024 Comments No Sex and Gender Information Value Date Recorded Sex Assigned at Female 04/18/2024 9:31 AM EDT Legal Sex Female 5:44 AM EST Gender Identity Female 12/20/2023 11:06 AM EST Sexual Orientation Straight 04/18/2024 9: 31 AM EDT Obstetrics History Para Term AB IAB SAB Ectopic Multiple Livin g Live Births 2 2 2 Date Outcome GA Total Labor Labor/2nd/3rd Weight Sex Type Anes PTL Fay A1 A5 Name Clin Term Term Last Filed Vital Signs Vital Sign Reading Time Taken Comments Blood Pressure 137/65 10/19/2024 10:13 AM EDT Pulse 64 10/19/2024 10:13 AM EDT Temperature 36.7 C (98.1 F) 10/19/2024 10:13 AM EDT Respiratory Rate 18 08/17/2024 1:06 PM EDT Oxygen Saturation 97% 10/19/2024 10:13 AM EDT Inhaled Oxygen Concentration - - Weight 64.4 kg (142 lb) 10/19/2024 10:13 AM EDT Height 152.4 cm (5') 10/19/2024 10:13 AM EDT Body Mass Index 27.73 10/19/2024 10:13 AM EDT Plan of Treatment Upcoming Encounters Date Type Department Care Team (Late st Contact Info) Description 10/30/2024 8:10 AM EDT Office Visit [facility] [address] [place] [phone] Gonzalez Peña NP [address] [place] [address] [place] [address] 02/07/2025 11:30 AM EST Office Visit Internal Medicine - [place] [address] [facility] [address] [place] [phone] Bk Otero MD [address] [facility] [address] [place] [address] 03/07/2025 2:30 PM EST Office Visit [facility] [place] [address] [place] [phone] Roseann Porter MD [address] [place] [phone] 04/18/2025 10:00 AM EDT Office Visit [facility] Hematology Oncology [address] [place] [phone] Solitario Mercedes MD [address] [place] [phone] Health Maintenance Due Date Last Done Comments Cervical Cancer Screening: Pap Smear 1981 RSV Immunization Adult Patients (1 - Risk 60-74 years 1-dose series) 2020 DTaP,Tdap,and Td Vaccines (2 - Td or Tdap) 08/04/2023 08/03/2013 HIV Screening 11/16/2023 COVID-19 Vaccine (4 - Moderna risk season) 2024 10/19/2023, 06/26/2020, 05/29/2020 Influenza Vaccine (#1) 2024 , 11/26/2022, 12/18/2021, Additional history exists Hypertension/CHF/CAD Annual BMP Blood Test 02/06/2025 02/07/2024, 08/10/2023, 04/07/2023, Additional history exists Social Influencers of Health Screening 05/20/2025 05/20/2024, 02/07/2024 Breast Cancer Screening 02/28/2026 02/29/2024 Cholesterol Screening (Lipid Panel) 08/09/2028 08/10/2023, 03/21/2023, 11/27/2022 Colorectal Cancer Screening: Colonoscopy 08/31/2033 09/01/2023 Osteoporosis Screening (Bone Density Screening) 06/06/2034 06/06/2024 Zoster Vaccines Completed 08/04/2021, 05/06/2021 Pneumococcal Vaccine: 50+ Years Completed 12/18/2021, 12/22/2019 Hepatitis C Screening Completed 08/10/2023, 018 Depression Screening Completed 05/20/2024 HIB Vaccines Aged Out No longer eligi ble based on patient's age to complete this topic HPV Vaccines Aged Out No longer eligi ble based on patient's age to complete this topic Hepatitis A Vaccines Aged Out No long er eligible based on patient's age to complete this topic Hepatitis B Vaccines Aged Out No long er eligible based on patient's age to complete this topic IPV Vaccines Aged Out No longer eligi ble based on patient's age to complete this topic MMR Vaccines Aged Out No longer eligi ble based on patient's age to complete this topic Meningococcal ACWY Vaccine Aged Out N o longer eligible based on patient's age to complete this topic Meningococcal B Vaccine Aged Out No l onger eligible based on patient's age to complete this topic RSV Immunization Patients Under 20 months Aged Out No longer eligible based on patient's age to complete this topic Varicella Vaccines Aged Out No longer eligible based on patient's age to complete this topic Medical Devices Implanted Type Area Truck Striker Device Identifier Shelf Expiration Date Model / Serial / Lot Marker Hydromark 15g Butterfly T4 Ti - [id number] Implanted:Qty: 1 on 03/08/2024 at [facility] Imaging Implants Right: Breast [employer] MAMMOTOME [id number] 15-T4 / / [id number] Marker 18ga Magseed 7cm - [id number] - [id number] Implanted:Qty: 1 on 04/19/2024 by Lewis Land MD at [facility] Imaging Implants Right: Breast [employer] [id number] 08/07/2025 [id number] / [id number] / [id number] Procedures Procedure Name Priority Date/Time Associated Diagnosis Comments HC SPIROMETRY BRONCHODILATION RESPONSIVENESS PRE/POST BRONCHODILATOR ADMINISTRATION Routine 10/18/2024 1:59 PM EDT Mild intermittent asthma, uncomplicated BD BONE DENSITY DXA AXIAL SKELETON Routine 06/06/2024 1:43 PM EDT Aromatase inhibitor use MG MAMMO DIGITAL DIAGNOSTIC W FAVIAN BILAT Routine 02/29/2024 8:46 AM EST Mass of right breast, unspecified quadrant COMPREHENSIVE METABOLIC PANEL Routine 02/07/2024 9:45 AM EST Encounter for annual physical exam HM HEPATITIS C SCREENING Routine 08/10/2023 LIPID PANEL Routine 08/10/2023 from Last 3 Months or Most Recently Relevant to Health Maintenance Results * Pulmonary function testing: Carbon Monoxide Diffusing Capacity, Nitrogen Wash Out, Spirometry with Bronchodilator (10/18/2024 1:59 PM EDT) Narrative Keith Chahal MD - 10/21/2024 11:30 AM EDT Table formatting from the original result was not included. Images from the original result were not included. [facility] Pulmonary Lab [address] [place] [phone] Pulmonary Functions Report Date of service: 10/18/24 Patient Name: Jose Bhatti Date of : 1960 Age: 64 y.o. Gender: female Ordering Provider: Hollie Mcdonald MD Diagnosis listed on Order: Mild intermittent asthma, uncomplicated Reason for Exam: Order Questions Answers Reason for Exam: MILD INTERMITTENT ASTHMA, UNCOMPLICATED Which PFTs would you like to perform? Carbon Monoxide Diffusing Capacity,Nitrogen Wash Out,Spirometry with Bronchodilator SPIROMETRY: FEV1 is 78 % predicted and an FVC is 91 % predicted. The FEV1/FVC ratio is 66% of normal, no response to bronchodilators noted. LUNG VOLUMES: Total lung capacity (TLC): 91% predicted. Residual volume (RV): 112% predicted RV/TLC ratio is 125% of normal DIFFUSION CAPACITY: DLCO 95% predicted. DlCO/VA 98% of predicted COMPARISONS: INTERPRETATION: This pulmonary function test shows mild obstructive changes with normal diffusion capacity. The findings could be explained by COPD/asthma Keith Chahal MD us Hollie Mcdonald MD PFT ORDERABLES Final Result * BD Bone Density DXA Axial Skeleton (06/06/2024 1:43 PM EDT) Anatomical Region Laterality Modality Wrist, Hip, L-spine Bone Densito metry 06/06/2024 3:12 PM EDT Impressions 06/06/2024 3:13 PM EDT Osteopenia. Telerad [place] ([id number]) -------- FINAL REPORT -------- Dictated By: Joan Naranjo Dictated Date: 06/06/2024 15:12 ET Assigned Physician: Joan Naranjo Reviewed and Electronically Signed By: Joan Naranjo Signed Date: 06/06/2024 15:13 ET Workstation ID: [id number] Transcribed By: Self Edit Transcribed Date: 06/06/2024 15:12 ET Narrative 06/06/2024 3:13 PM EDT History: Low estrogen state due to menopause. Personal history of breast carcinoma, on antiestrogen therapy. Comparison: No comparison study at this institution. Findings: Bone densitometry is performed utilizing dual energy x-ray absorptiometry (DXA) in the Glycode unit. The lumbar spine and proximal femora are evaluated in the AP projection. The FRAX questionaire was completed. The results indicate low bone mass (osteopenia), with a right femoral neck T- score of -2.2. The Z score is -0.8, indicating bone mineral density within the range of normal for age. The detailed DEXA report will be mailed to the referring physician's office. DualFemur FRAX: 10-year Probability of Fracture: Major Osteoporotic 6.2 percent Hip 1.0 percent. Procedure Note Joan Naranjo MD - 06/06/2024 History: Low estrogen state due to menopause. Personal history of breastcarcinoma, on antiestrogen therapy. Comparison: No comparison study at this institution. Findings: Bone densitometry is performed utilizing dual energy x-ray absorptiometry(DXA) in the Glycode unit. The lumbar spine and proximal femora areevaluated in the AP projection. The FRAX questionaire was completed. The results indicate low bone mass (osteopenia), with a right femoral neckT- score of -2.2. The Z score is -0.8, indicating bone mineral densitywithin the range of normal for age. The detailed DEXA report will bemailed to the referring physician's office. DualFemur FRAX: 10-year Probability of Fracture: Major Osteoporotic 6.2percent Hip 1.0 percent. IMPRESSION: Osteopenia. Telerad [place] ([id number]) -------- FINAL REPORT -------- Dictated By: Joan Naranjo Dictated Date: 06/06/2024 15:12 ET Assigned Physician: Joan Naranjo Reviewed and Electronically Signed By: Joan Naranjo Signed Date: 06/06/2024 15:13 ET Workstation ID: [id number] Transcribed By: Self Edit Transcribed Date: 06/06/2024 15:12 ET Subrampeyton Mercedes MD IM DXA PROCEDURES Final Result * (ABNORMAL) MG Mammo Digital Diagnostic w Favian bilat (02/29/2024 8:46 AM EST) Anatomical Region Laterality Modality Breast Bilateral Mammography 02/29/2024 8:13 AM EST Impressions 02/29/2024 8:43 AM EST In the upper outer quadrant of the right breast, mammography demonstrates an irregular, spiculated masslike asymmetry, measuring 9.7 x 7.0 mm, corresponding to the palpable abnormality. Ultrasound examination demonstrates a corresponding 10.7 x 9.6 x 7.0 mm mass with appearance highly suspicious for malignancy. Ultrasound-guided biopsy is recommended. This finding and recommendation were discussed by me with the patient immediately following completion of imaging. Biopsy will be scheduled. BI-RADS CATEGORY: 5 - HIGHLY SUGGESTIVE OF MALIGNANCY RECOMMENDATION: Core biopsy of right breast recommended. Mammo Location: [facility], Center for Mammography, [address] [place] [id number] -------- FINAL REPORT -------- Dictated By: Jorje Cochran Dictated Date: 02/29/2024 08:13 ET Assigned Physician: Jorje Cochran Reviewed and Electronically Signed By: Jorje Cochran Signed Date: 02/29/2024 08:43 ET Workstation ID: [id number] Transcribed By: Self Edit Transcribed Date: 02/29/2024 08:25 ET Narrative 02/29/2024 8:43 AM EST CLINICAL: The patient is a 63 years Female presenting with a palpable mass in the right breast and for screening mammography of the left breast. COMPARISON: Outside study performed 04/08/2018 TECHNIQUE: Full-field digital mammography of the breasts bilaterally consisting of tomosynthesis in MLO and CC projection is performed in the POINT 3 [employer] 2000-D unit. Computer aided detection utilizing the Pyron Solar system was utilized. FINDINGS: The breasts are seen to be composed of a combination of fatty and fibroglandular elements. Bilateral subpectoral saline implants are present; these appear to have replaced silicone implants since the prior, outside study performed 04/08/2018. These demonstrate some folding, but appear intact. In the upper outer quadrant of the right breast at the 10:00 position, approximately 3 cm from the nipple, there is an irregular spiculated masslike asymmetry measuring 9.7 x 7.0 mm. This is new as compared to the prior study and corresponds to the palpable abnormality. This is demonstrated to best advantage on thin slice MLO tomographic image 26/60 and on thin slice CC tomographic image 21/56. No other mass is seen. Bilateral benign calcifications are present. Focused real-time ultrasonography of the area of mammographic and clinical concern in the right breast is performed. At the 10:00 position 5 cm from the nipple, there is an oval hypoechoic solid mass measuring 10.7 x 9.6 x 7.0 mm. This is taller than it is wide and demonstrates wall irregularity as well as posterior acoustic enhancement. This mass is highly suspicious for neoplasm. TISSUE DENSITY: There are scattered areas of fibroglandular density. (BI-RADS category B) Procedure Note Jorje Cochran MD - 02/29/2024 CLINICAL: The patient is a 63 years Female presenting with a palpable massin the right breast and for screening mammography of the left breast. COMPARISON: Outside study performed 04/08/2018 TECHNIQUE: Full-field digital mammography of the breasts bilaterallyconsisting of tomosynthesis in MLO and CC projection is performed in theLiveroof China[employer] 2000-D unit. Computer aided detection utilizing the inMarketystem was utilized. FINDINGS: The breasts are seen to be composed of a combination of fattyand fibroglandular elements. Bilateral subpectoral saline implants arepresent; these appear to have replaced silicone implants since the prior,outside study performed 04/08/2018. These demonstrate some folding, butappear intact. In the upper outer quadrant of the right breast at the10:00 position, approximately 3 cm from the nipple, there is an irregularspiculated masslike asymmetry measuring 9.7 x 7.0 mm. This is new ascompared to the prior study and corresponds to the palpable abnormality.This is demonstrated to best advantage on thin slice MLO tomographic image26/60 and on thin slice CC tomographic image 21/56. No other mass isseen. Bilateral benign calcifications are present. Focused real-time ultrasonography of the area of mammographic and clinicalconcern in the right breast is performed. At the 10:00 position 5 cm fromthe nipple, there is an oval hypoechoic solid mass measuring 10.7 x 9.6 x7.0 mm. This is taller than it is wide and demonstrates wall irregularityas well as posterior acoustic enhancement. This mass is highly suspiciousfor neoplasm. TISSUE DENSITY: There are scattered areas of fibroglandular density.(BI-RADS category B) IMPRESSION: In the upper outer quadrant of the right breast, mammography demonstratesan irregular, spiculated masslike asymmetry, measuring 9.7 x 7.0 mm,corresponding to the palpable abnormality. Ultrasound examinationdemonstrates a corresponding 10.7 x 9.6 x 7.0 mm mass with appearancehighly suspicious for malignancy. Ultrasound-guided biopsy isrecommended. This finding and recommendation were discussed by me withthe patient immediately following completion of imaging. Biopsy will bescheduled. BI-RADS CATEGORY: 5 - HIGHLY SUGGESTIVE OF MALIGNANCY RECOMMENDATION: Core biopsy of right breast recommended. Mammo Location: [facility], Center for M[facility]ography, [address] [place] [phone] -------- FINAL REPORT -------- Dictated By: Jorje Cochran Dictated Date: 02/29/2024 08:13 ET Assigned Physician: Jorje Cochran Reviewed and Electronically Signed By: Jorje Cochran Signed Date: 02/29/2024 08:43 ET Workstation ID: [id number] Transcribed By: Self Edit Transcribed Date: 02/29/2024 08:25 ET Bk Otero MD IM BI PROCEDURES Final Result * (ABNORMAL) Comprehensive metabolic panel (02/07/2024 9:45 AM EST) Sodium 140 133 - 145 mmol/L LAB CHEMISTRY METHOD 02/07/2024 4:21 PM [facility] Potassium 4.5 3.5 - 5.5 mmol/L LAB CHEMISTRY METHOD 02/07/2024 4:21 PM [facility] Chloride 107 96 - 110 mmol/L LAB CHEMISTRY METHOD 02/07/2024 4:21 PM [facility] CO2 29 21 - 32 mmol/L LAB CHEMISTRY METHOD 02/07/2024 4:21 PM [facility] Anion Gap 4 3 - 11 LAB CHEMISTRY METHOD 02/07/2024 4:21 PM [facility] Glucose 87 70 - 100 mg/dL LAB CHEMISTRY METHOD 02/07/2024 4:21 PM [facility] BUN 16 5 - 25 mg/dL LAB CHEMISTRY METHOD 02/07/2024 4:21 PM [facility] Creatinine 0.76 0.50 - 1.10 mg/dL LAB CHEMISTRY METHOD 02/07/2024 4:21 PM [facility] eGFR 88 >=60 mL/min/1. 73m2 LAB CHEMISTRY METHOD 02/07/2024 4:21 PM [facility] Comment:Calculation based on the Chronic Kidney Disease Epidemiology Collaboration (CKD-EPI) equation refit without adjustment for race. BUN/Creatinine Ratio 21.1 LAB CHEMISTRY METHOD 02/07/2024 4:21 PM [facility] Calcium 9.3 8.5 - 10.5 mg/dL LAB CHEMISTRY METHOD 02/07/2024 4:21 PM [facility] AST (SGOT) 23 10 - 42 unit/L LAB CHEMISTRY METHOD 02/07/2024 4:21 PM [facility] ALT (SGPT) 37 10 - 60 unit/L LAB CHEMISTRY METHOD 02/07/2024 4:21 PM [facility] Alkaline Phosphatase 140(H) 42 - 121 unit/L LAB CHEMISTRY METHOD 02/07/2024 4:21 PM [facility] Total Protein 7.2 6.0 - 8.0 g/dL LAB CHEMISTRY METHOD 02/07/2024 4:21 PM [facility] Albumin 4.0 3.2 - 5.0 g/dL LAB CHEMISTRY METHOD 02/07/2024 4:21 PM [facility] Total Bilirubin 0.4 0.0 - 1.4 mg/dL LAB CHEMISTRY METHOD 02/07/2024 4:21 PM [facility] Blood Venous blood specimen / Unknown Venipuncture / Unknown 02/07/2024 9:45 AM EST 02/07/2024 9:45 AM EST us Bk Otero MD LAB BLOOD ORDERABLES Final Resul t [facility] [address] [place] [address], * Hepatitis C Screening (08/10/2023) Hepatitis C Screening AbstractedAbstracted Historical Provider HEALTH MAINTENANCE Final Result * Lipid panel (08/10/2023) LDL/HDL Ratio 3 0 - 4 Triglycerides 131 0 - 150 mg/dL Cholesterol 148 0 - 200 mg/dL HDL 47 >=40 mg/dL LDL Cholesterol 75 0 - 100 mg/dL Blood Venous blood specimen / Unknown Historical Provider LAB BLOOD ORDERABLES Ana l Result from Last 3 Months or Most Recently Relevant to Health Maintenance Insurance [facility] Advance Directives * Full Code - Default (Latest Code Status on File) Date Activated Date Inactivated Comments 04/20/2024 6:46 AM 04/20/2024 1:33 PM This is orde r is used when code status has not been discussed with the patient, or code status is otherwise unknown/unconfirmed To update the patient's code status, place a code status order. Do not modify or discontinue any currently active code status orders. Care Teams Stylist Assistant Relationship Specialty Start Date End Date Shani James FNP [address] [place] [address] PCP - General Nurse Practitioner 07/12/24
--- OUTSIDE RECORDS SUMMARY | 2024-10-27 14:55 | XMS_ITS | Encounter Summary ---
Author Organization [facility] Address [address] [facility] [address] [place] [address] Phone Care Team Providers Care Director Of Research Center Name Role Phone Ned Manuel MD Unavailable Shaun Goodrich MD Unavailable [phone] Jenny Mcbride REAL ESTATE ANALYST Unavailable [phone] Jenny Mcbride REAL ESTATE ANALYST Primary Care Provider Jenny Mcbride REAL ESTATE ANALYST Primary Care Provider Luis Amin MD Unavailable Unknown, Unknown Primary Care Provider Maria Teresa baker Encounter Details Date Type Department Care Team (Late st Contact Info) Description 02/24/2018 Ancillary Orders [facility],Outside Imaging [address] [place] [address] System, Provider Not In, PhD [address] [address] Social History Tobacco Use Types Packs/Day Years [...] documented as of this encounter Care Teams Director Of Research Center Relationship Specialty Start Date End Date Jenny Mcbride, REAL ESTATE ANALYST [address] [place] [address] PCP - General Family Medicine 05/26/17 09/20/19 Jenny Mcbride REAL ESTATE ANALYST [address] [place] [address] PCP - General Family Medicine 09/21/19 04/19/23 Unknown, Unknown, MD PCP - General 04/20/23 Ned Manuel MD [address] [place] [address] Historical LMR Provider 11/25/16 02/15/21 Shaun Goodrich MD [address] [place] [address] Historical LMR Provider 11/25/16 02/15/21 Jenny Mcbride REAL ESTATE ANALYST [address] [place] [address] Historical LMR Provider 11/25/16 11/25/22 Luis Amin MD [address] [place] [address] [address] [place] [address] Gastroenterology 11/26/22 documented as of this encounter Additional Source Comments The information contained in this document represents components of the legal health record. It is not the complete legal health record.[facility]
--- OUTSIDE RECORDS SUMMARY | 2024-10-27 14:55 | XMS_ITS ---
Author Organization [facility] Address [address] [place], [place] [address] Phone Care Team Providers Care Segment Producer Name Role Phone Shani James Primary Care Provider [phone] Active Problems Problem Noted Date Diagnosed Date Primary localized osteoarthrosis of ankle and fo ot 07/06/2024 History of stress fracture 05/03/2024 Invasive ductal carcinoma of breast, female, right (CMS/HCC V24, CMS/HCC V28) 03/15/2024 Cancer Staging:Pathologic:Stage IA(pT1c, pN0, cM0, G2, ER+, RI+, HER2-, Oncotype DX score: 5) - Signed by Bridget Allen MD on 05/10/2024 History of breast augmentation 03/15/2024 Precordial pain 01/04/2024 Coronary artery disease invo lving [place] coronary artery of [place] heart without angina pectoris 08/06/2023 Assessment & Plan (01/04/2024 12:45 PM EST): Pleasant 63-year-old woman presented to a hospital in [place] several months ago for evaluation of abrupt [...] both external ears 05/21/2017 Chiari I malformation (CMS/[facility] V24, CMS/[facility] V28) 05/21/2017 Chronic gastritis without bleeding 05/21/2017 External hemorrhoids 05/21/2017 Glaucoma of right eye 05/21/2017 Current Oncology Plans No current plan information found. Past Plans No past plan information found. Radiation Treatments * Treatment Site Started On Last Treated On Elapsed Days Fractions Complete Last Fraction Dose Given/Prescribed Total Dose Given/Prescribed Technique Right Breast 06/14/2024 5 22 16 of 16 267 cGy / 267 cGy 4,272 cGy / 4, 272 cGy Tangents
[2024-10-27 15:00] VITALS: BP 133/60; PULSE 89; RESP 16; TEMP 36.7; O2SAT 98; BMI 28.3
== END 2024-10-27 15:38 | disposition home or self-care (01) ==
LOC: HO.HMCFM 14:52
PROVIDERS: PCP Nurse Practitioner Family; Visit Provider Nurse Practitioner Family
DX: Z71.85 Encounter for immunization safety counseling (principal); Z23 Encounter for immunization; R06.02 Shortness of breath; M25.552 Pain in left hip; R10.2 Pelvic and perineal pain

== ENCOUNTER → 2024-10-27 14:51 | Outpatient (BNVA) | payer BC, SELFPAY | PROVIDERS: PCP Nurse Practitioner Family; Visit Provider Nurse Practitioner Family | DX: M25.552 Pain in left hip (principal); R06.02 Shortness of breath; R10.2 Pelvic and perineal pain; Z23 Encounter for immunization; Z71.85 Encounter for immunization safety counseling | CPT/HCPCS: 90471; 90656 ==

== ENCOUNTER 2024-10-28 10:36 | Outpatient (REF) | payer BC, SELFPAY ==
--- OUTSIDE RECORDS SUMMARY | 2011-06-16 | XMS_ITS | Encounter Summary ---
Author Organization [facility] Address [address] [place] [address] Phone Care Team Providers Care Bolting Machine Operator Name Role Phone Unavailable Primary Care Provider Unavailabl e Encounter Details Date Type Department Care Team (Late st Contact Info) Description 06/16/2011 Hospital Encounter [facility],Outside Imaging [address] [place] [address] System, Provider Not In, [facility] [address] [address] Social History Tobacco Use Types Packs/Day Years [...] It is not the complete legal health record.[facility]
--- OUTSIDE RECORDS SUMMARY | 2012-02-04 01:00 | XMS_ITS | Encounter Summary ---
Author Organization [facility] Address [address] [place] [address] Phone Care Team Providers Care Maintenance Worker Name Role Phone Unavailable Primary Care Provider Unavailabl e Encounter Details Date Type Department Care Team (Late st Contact Info) Description 02/04/2012 Hospital Encounter [facility],Outside Imaging [address] [place] [address] System, Provider Not In, [facility] [address] [address] Social History Tobacco Use Types Packs/Day Years [...] It is not the complete legal health record.[facility]
--- OUTSIDE RECORDS SUMMARY | 2012-02-04 01:15 | XMS_ITS | Encounter Summary ---
Author Organization [facility] Address [address] [place] [address] Phone Care Team Providers Care Crane Man Name Role Phone Unavailable Primary Care Provider Unavailabl e Encounter Details Date Type Department Care Team (Late st Contact Info) Description 02/04/2012 12:15 AM EST Hospital Encounter [facility],Outside Imaging [address] [place] [address] System, Provider [place] In, [place] [address] Social History Tobacco Use Types Packs/Day Years [...] It is not the complete legal health record.[facility]
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
--- OUTSIDE RECORDS SUMMARY | 2023-08-20 07:40 | XMS_ITS ---
Author Organization 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 Name Role Phone Ned Manuel MD Primary Care Provider Luis Jorge Jr REASON FOR VISIT EPIGASTRIC PAIN Problems Problem Type SNOMED Code ICD Code Onset Dates Problem Status W/U Status Risk Notes Problem Gastro-esophagea l reflux disease without esophagitis (490692559) Gastro-esophage al reflux disease without esophagitis (K21.9) Active confirmed Encounters Encounter Location Date Provider Diagnosis [facility] Outpatient [address] [place] [phone] 08/20/2023 Luis Amin Jr Gastro-esophageal reflux disease without esophagitis K21.9 Assessments Encounter Date Diagnosis (ICD Code) Assessment Notes Treatment Notes Treatment Clinical Notes Section Notes 08/20/2023 Gastro-esophagea l reflux disease without esophagitis (ICD-10 - K21.9) Plan Of Treatment Next Appt Details Provider Name:Luis bettencourt Jr, 02/14/2025 10:00:00 AM, [address], [address], [place], [address], Progress Notes * JOSE BHATTIDOB:1960 (64 yo F)Acc No.[id number]:08/20/2023 EGD/MAC Patient: Darrel WOODALLJOSE LAY Provider: Amor Amin MD :1960 A ge:63 Y S ex:Female Date:08/20/2023 Address:[address] [place], [place] [id number] Pcp:Ned Manuel MD Subjective: * Chief Complaints: * 1 . EPIGASTRIC PAIN. * Medical History: Objective: * Vitals: Assessment: * Assessment: 1. G lara-esophageal reflux disease without esophagitis - K21.9 (Primary) Plan: * Treatment: * Procedure Codes: 4 3239 UPPER GI ENDOSCOPY, BIOPSY * * The named appointment provid er may or may not be the originator of this progress note, and it is not deemed complete until electronically signed by the appointment provider. Sign off status: Pending * Provider: Amor Amin MD Date: 0 08/20/2023 Generated for Wilfred cooper/Erika/Radhaitting on: 0 10/28/2024 10:39 AM EDT
--- NOTE | ~2024-10-28 | XR_ITS ---
CLINICAL HISTORY: R06.02 - Shortness of breath 2 view chest x-ray Comparison: None provided Findings: No consolidation or effusion. Heart size is normal. No acute fracture. IMPRESSION: 1. No acute findings. This document has been electronically signed by: Niya Hansen MD on 10/28/2024 13:34:35
--- NOTE | ~2024-10-28 | XR_ITS ---
CLINICAL HISTORY: M25.552 - Pain in left hip 3 view, pelvis and left hip Comparison: None provided Findings: The bones are intact. No significant arthritic change. There are numerous calcific foci extending horizontally at the level of the upper pelvis. IMPRESSION: 1. No acute bony abnormality. 2. Numerous hyperdensities extending horizontally at the level of the upper pelvis. This could represent soft tissue calcifications or bowel contents. This document has been electronically signed by: Niya Hansen MD on 10/28/2024 13:32:53
--- OUTSIDE RECORDS SUMMARY | 2024-10-28 10:39 | XMS_ITS | Encounter Summary ---
Author Organization [facility] Address [address] [facility] [place] [address] [place] [address] Phone Care Team Providers Care Power Shovel Operator Helper Name Role Phone Ned Manuel MD Unavailable Shaun Goodrich MD Unavailable Jenny Mcbride QUALITY MANAGEMENT COORDINATOR Unavailable [phone] Jenny Mcbride QUALITY MANAGEMENT COORDINATOR Primary Care Provider Jenny Mcbride QUALITY MANAGEMENT COORDINATOR Primary Care Provider Luis Amin MD Unavailable Unknown, Unknown Primary Care Provider Maria Teresa baker Encounter Details Date Type Department Care Team (Late st Contact Info) Description 02/24/2018 Ancillary Orders [facility],Outside Imaging [address] [place] [address] System, Provider Not In, PhD [address] [address] Social History Tobacco Use Types Packs/Day Years [...] documented as of this encounter Care Teams Power Shovel Operator Helper Relationship Specialty Start Date End Date Jenny Mcbride, QUALITY MANAGEMENT COORDINATOR [address] [place] [address] PCP - General Family Medicine 05/26/17 09/20/19 Jenny Mcbride QUALITY MANAGEMENT COORDINATOR [address] [place] [address] PCP - General Family Medicine 09/21/19 04/19/23 Unknown, Unknown, MD PCP - General 04/20/23 Ned Manuel MD [address] [place] [address] Historical LMR Provider 11/25/16 02/15/21 Shaun Goodrich MD [address] [place] [address] Historical LMR Provider 11/25/16 02/15/21 Jenny Mcbride, QUALITY MANAGEMENT COORDINATOR [address] [place] [address] Historical LMR Provider 11/25/16 11/25/22 Luis Amin MD [address] [place] [address] [address] [place] [address] Gastroenterology 11/26/22 documented as of this encounter Additional Source Comments The information contained in this document represents components of the legal health record. It is not the complete legal health record.[facility]
--- OUTSIDE RECORDS SUMMARY | 2024-10-28 10:39 | XMS_ITS ---
Author Organization [facility] Address [address] [place], [place] [address] Phone Care Team Providers Care Organic Section Technical Lead Name Role Phone Shani James Primary Care Provider [phone] Active Problems Problem Noted Date Diagnosed Date Primary localized osteoarthrosis of ankle and fo ot 07/06/2024 History of stress fracture 05/03/2024 Invasive ductal carcinoma of breast, female, right (CMS/HCC V24, CMS/HCC V28) 03/15/2024 Cancer Staging:Pathologic:Stage IA(pT1c, pN0, cM0, G2, ER+, SD+, HER2-, Oncotype DX score: 5) - Signed by Bridget Allen MD on 05/10/2024 History of breast augmentation 03/15/2024 Precordial pain 01/04/2024 Coronary artery disease invo lving [place] coronary artery of [place] heart without angina pectoris 08/06/2023 Assessment & Plan (01/04/2024 12:45 PM EST): Pleasant 63-year-old woman presented to a hospital in [place] several months ago for evaluation of abrupt [...] both external ears 05/21/2017 Chiari I malformation (CMS[facility] V24, CMS/[facility] V28) 05/21/2017 Chronic gastritis without bleeding 05/21/2017 [...]
--- OUTSIDE RECORDS SUMMARY | 2024-10-28 10:39 | XMS_ITS | Encounter Summary ---
Author Organization [facility] Address [address] [facility] [address] [place] [address] Phone Care Team Providers Care Aerospace Manager Name Role Phone Ned Manuel MD Unavailable Shaun Goodrich MD Unavailable Jenny Mcbride FACTORY MANAGER Unavailable [phone] Jenny Mcbride FACTORY MANAGER Primary Care Provider Jenny Mcbride FACTORY MANAGER Primary Care Provider Luis Amin MD Unavailable Unknown, Unknown Primary Care Provider Maria Teresa baker Encounter Details Date Type Department Care Team (Late st Contact Info) Description 02/24/2018 Ancillary Orders [facility],Outside Imaging [address] [place] [address] System, Provider Not In, PhD [address] [address] Social History Tobacco Use Types Packs/Day Years [...] documented as of this encounter Care Teams Aerospace Manager Relationship Specialty Start Date End Date Jenny Mcbride, FACTORY MANAGER [address] [place] [address] PCP - General Family Medicine 05/26/17 09/20/19 Jenny Mcbride FACTORY MANAGER [address] [place] [address] PCP - General Family Medicine 09/21/19 04/19/23 Unknown, Unknown, MD PCP - General 04/20/23 Ned Manuel MD [address] [place] [address] Historical LMR Provider 11/25/16 02/15/21 Shaun Goodrich MD [address] [place] [address] Historical LMR Provider 11/25/16 02/15/21 Jenny Mcbried, FACTORY MANAGER [address] [place] [address] Historical LMR Provider 11/25/16 11/25/22 Luis Amin MD [address] [place] [address] [address] [place] [address] Gastroenterology 11/26/22 documented as of this encounter Additional Source Comments The information contained in this document represents components of the legal health record. It is not the complete legal health record.[facility]
--- OUTSIDE RECORDS SUMMARY | 2024-10-28 10:39 | XMS_ITS | Clinical Summary ---
Author Organization [facility] Address [address] [place], [place] [address] Phone Care Team Providers Care Blue Crabber Name Role Phone Shani James Primary Care Provider [phone] Allergies No known active allergies Medications hydrOXYzine [...] Cancer Staging:Pathologic:Stage IA(pT1c, pN0, cM0, G2, ER+, DE+, HER2-, Oncotype DX score: 5) - Signed by Bridget Allen MD on 05/10/2024 History of breast augmentation 03/15/2024 Precordial pain 01/04/2024 Coronary artery disease invo lving [place] coronary artery of [place] heart without angina pectoris 08/06/2023 Assessment & Plan (01/04/2024 12:45 PM EST): Pleasant 63-year-old woman presented to a hospital in [place] several months ago for evaluation of abrupt [...] both external ears 05/21/2017 Chiari I malformation ([facility] V24, [facility] V28) 05/21/2017 Chronic gastritis without bleeding 05/21/2017 External hemorrhoids 05/21/2017 Glaucoma of right eye 05/21/2017 Encounters Date Type Department Care Team Description 10/19/2024 9:45 AM EDT Office Visit [facility] Hematology Oncology [address] [place] [address] Solitario Mercedes MD Invasive ductal carcinoma of breast, female, right ([facility] V24, [facility] V28) (Primary Dx); Lymphedema of breast 10/18/2024 1:13 PM EDT - 10/18/2024 11:59 PM EDT Hospital Encounter [facility] Pulmonary [address] [place] [address] Discharge Disposition: Home or Self Care 08/30/2024 2:30 PM EDT Office Visit Breast [address] [address] Roseann Porter MD Invasive ductal carcinoma of breast, female, right ([facility] V24, [facility] V28) (Primary Dx); History of breast augmentation; Mass of upper inner quadrant of left breast 08/17/2024 12:58 PM EDT - 08/17/2024 11:59 PM EDT Hospital Encounter [facility] Radiation Oncology [address] [place] [phone] Yazmin [place] NP Invasive ductal carcinoma of breast, female, right ([facility] V24, [facility] V28) (Primary Dx) Discharge Disposition: [...] without complication Coronary artery disease invo lving [place] coronary artery of [place] heart without angina pectoris 08/06/2023 Primary hypertension 08/06/2023 GERD (gastroesophageal reflux disease) Mixed hyperlipidemia 08/06/2023 Migraine without status migrainosus, not intract able 08/06/2023 Carotid artery calcification B Blindness R EYE Diverticulosis Cancer (CMS/HCC V24, CMS/[facility] V28) r BREAST CA Breast cancer (CMS/[facility] V24, CMS/[facility] V28) Family History Medical History [...] care for your loved ones. For example, director of early childhood or elderly care for an older adult? [...] Master's degree (e.g., MA, MS, Shaun, MEd, BODY SPECIALIST, AMAURY) 02/07/2024 Comments No Sex and Gender [...] Description 10/30/2024 8:10 AM EDT Office Visit [facility] [address] [place] [address] Gonzalez Peña NP [address] [place] [address] [place] [address] 02/07/2025 11:30 AM EST Office Visit Internal Medicine - [place] [address] [facility] [address] [place] [phone] Bk Otero MD [address] [facility] [address] [place] [address] 03/07/2025 2:30 PM EST Office Visit [facility] [place] [address] [place] [address] Roseann Porter MD [address] [place] [phone] 04/18/2025 10:00 AM EDT Office Visit [facility] Hematology Oncology [address] [place] [address] Solitario Mercedes MD [address] [place] [address] Health Maintenance Due Date Last [...] this topic Medical Devices Implanted Type Area Senior Business Broker Device Identifier Shelf Expiration Date Model / Serial / Lot Marker Hydromark 15g Butterfly T4 Ti - [id number] Implanted:Qty: 1 on 03/08/2024 at [facility] Implants Right: Breast [employer] MAMMOTOME [id number]- 15-T4 / / [id number] Marker 18ga Magseed 7cm - [id number] - [id number] Implanted:Qty: 1 on 04/19/2024 by Lewis Land MD at [facility] Imaging Implants Right: Breast [employer] [id number] 08/07/2025 [id number] / [id number] / [id number] Procedures Procedure Name Priority Date/Time Associated Diagnosis [...] from the original result were not included. [facility] Pulmonary Lab [address] [place] [address] Pulmonary Functions Report Date of service: 10/18/24 [...] 06/06/2024 3:13 PM EDT [place] ([id number]) -------- FINAL REPORT -------- Dictated By: Joan Naranjo Dictated Date: 06/06/2024 15:12 ET Assigned Physician: Joan Naranjo Reviewed and Electronically Signed By: Joan Naranjo Signed Date: 06/06/2024 15:13 ET Workstation ID: [id number] Transcribed By: Self Edit Transcribed Date: 06/06/2024 15:12 ET Narrative 06/06/2024 3:13 PM EDT History: Low estrogen state due to menopause. Personal history of breast carcinoma, on antiestrogen therapy. Comparison: No comparison study at this institution. Findings: Bone densitometry is performed utilizing dual energy x-ray absorptiometry (DXA) in the [employer] unit. The lumbar spine and proximal femora [...] utilizing dual energy x-ray absorptiometry(DXA) in the [employer] unit. The lumbar spine and proximal femora [...] Hip 1.0 percent. IMPRESSION: Osteopenia. [facility] [place] ([id number]) -------- FINAL REPORT -------- Dictated By: Joan Naranjo Dictated Date: 06/06/2024 15:12 ET Assigned Physician: Joan Naranjo Reviewed and Electronically Signed By: Joan Naranjo Signed Date: 06/06/2024 15:13 ET Workstation ID: [id number] Transcribed By: Self Edit Transcribed Date: 06/06/2024 [...] [facility], [address] [place] [address] -------- FINAL REPORT -------- Dictated By: Jorje Cochran Dictated Date: 02/29/2024 08:13 ET Assigned Physician: Jorje Cochran Reviewed and Electronically Signed By: Jorje Cochran Signed Date: 02/29/2024 08:43 ET Workstation ID: [id number] Transcribed By: Self Edit Transcribed Date: 02/29/2024 [...] and CC projection is performed in the [employer] 2000-D unit. Computer aided detection utilizing the [employer] system was utilized. FINDINGS: The breasts are [...] MLO and CC projection is performed in the[employer] 2000-D unit. Computer aided detection utilizing the [employer] was utilized. FINDINGS: The breasts are seen [...] [facility], [address] [place] [address] -------- FINAL REPORT -------- Dictated By: Jorje Cochran Dictated Date: 02/29/2024 08:13 ET Assigned Physician: Jorje Cochran Reviewed and Electronically Signed By: Jorje Cochran Signed Date: 02/29/2024 08:43 ET Workstation ID: [id number] Transcribed By: Self Edit Transcribed Date: 02/29/2024 08:25 ET Bk Otero MD IM BI PROCEDURES Final Result * (ABNORMAL) Comprehensive metabolic panel (02/07/2024 9:45 AM EST) Sodium 140 133 - 145 mmol/L LAB CHEMISTRY METHOD 02/07/2024 4:21 PM [facility] Potassium 4.5 3.5 - 5.5 mmol/L LAB CHEMISTRY METHOD 02/07/2024 4:21 PM [facility] Chloride 107 96 - 110 mmol/L LAB CHEMISTRY METHOD 02/07/2024 4:21 PM [facility] CO2 29 21 - 32 mmol/L LAB CHEMISTRY METHOD 02/07/2024 4:21 PM [facility] Anion Gap 4 3 - 11 LAB CHEMISTRY METHOD 02/07/2024 4:21 PM [facility] Glucose 87 70 - 100 mg/dL LAB CHEMISTRY METHOD 02/07/2024 4:21 PM [facility] BUN 16 5 - 25 mg/dL LAB CHEMISTRY METHOD 02/07/2024 4:21 PM [facility] Creatinine 0.76 0.50 - 1.10 mg/dL LAB CHEMISTRY METHOD 02/07/2024 4:21 PM [facility] eGFR 88 >=60 mL/min/1. 73m2 LAB CHEMISTRY METHOD 02/07/2024 4:21 PM [facility] Comment:Calculation based on the Chronic Kidney Disease Epidemiology Collaboration (CKD-EPI) equation refit without adjustment for race. BUN/Creatinine Ratio 21.1 LAB CHEMISTRY METHOD 02/07/2024 4:21 PM [facility] Calcium 9.3 8.5 - 10.5 mg/dL LAB CHEMISTRY METHOD 02/07/2024 4:21 PM [facility] AST (SGOT) 23 10 - 42 unit/L LAB CHEMISTRY METHOD 02/07/2024 4:21 PM [facility] ALT (SGPT) 37 10 - 60 unit/L LAB CHEMISTRY METHOD 02/07/2024 4:21 PM [facility] Alkaline Phosphatase 140(H) 42 - 121 unit/L LAB CHEMISTRY METHOD 02/07/2024 4:21 PM [facility] Total Protein 7.2 6.0 - 8.0 g/dL LAB CHEMISTRY METHOD 02/07/2024 4:21 PM [facility] Albumin 4.0 3.2 - 5.0 g/dL LAB CHEMISTRY METHOD 02/07/2024 4:21 PM [facility] Total Bilirubin 0.4 0.0 - 1.4 mg/dL LAB CHEMISTRY METHOD 02/07/2024 4:21 PM [facility] Blood Venous blood specimen / Unknown Venipuncture / Unknown 02/07/2024 9:45 AM EST 02/07/2024 9:45 AM EST us Bk Otero MD LAB BLOOD ORDERABLES Final Resul t [facility] [address] [place] [address], * Hepatitis C Screening (08/10/2023) Hepatitis C [...] Most Recently Relevant to Health Maintenance Insurance [facility] Advance Directives * Full Code [...] currently active code status orders. Care Teams Blue Crabber Relationship Specialty Start Date End Date Shani James FNP [address] [place] [address] PCP - General Nurse Practitioner 07/12/24
--- OUTSIDE RECORDS SUMMARY | 2024-10-28 10:39 | XMS_ITS | Encounter Summary ---
Author Organization [facility] Address [address] [facility] [address] [place] [address] Phone Care Team Providers Care Home Care Music Therapist Name Role Phone Ned Manuel MD Unavailable [phone] Shaun Goodrich MD Unavailable Jenny Mcbride CONTENT WRITER Unavailable [phone] Jenny Mcbride CONTENT WRITER Primary Care Provider Jenny Mcbride CONTENT WRITER Primary Care Provider Luis Amin MD Unavailable Unknown, Unknown Primary Care Provider Maria Teresa baker Encounter Details Date Type Department Care Team (Late st Contact Info) Description 02/24/2018 Ancillary Orders [facility],Outside Imaging [address] [place] [address] System, Provider Not In, PhD [address] [address] Social History Tobacco Use Types Packs/Day Years [...] documented as of this encounter Care Teams Home Care Music Therapist Relationship Specialty Start Date End Date Jenny Mcbride, CONTENT WRITER [address] [place] [address] PCP - General Family Medicine 05/26/17 09/20/19 Jenny Mcbride CONTENT WRITER [address] [place] [address] PCP - General Family Medicine 09/21/19 04/19/23 Unknown, Unknown, MD PCP - General 04/20/23 Ned Manuel MD [address] [place] [address] Historical LMR Provider 11/25/16 02/15/21 Shaun Goodrich MD [address] [place] [address] Historical LMR Provider 11/25/16 02/15/21 Jenny Mcbride CONTENT WRITER [address] [place] [address] Historical LMR Provider 11/25/16 11/25/22 Luis Amin MD [address] [place] [address] [address] [place] [address] Gastroenterology 11/26/22 documented as of this encounter Additional Source Comments The information contained in this document represents components of the legal health record. It is not the complete legal health record.[facility]
--- OUTSIDE RECORDS SUMMARY | 2024-10-28 10:39 | XMS_ITS | Patient Health Record ---
Author Organization [facility] Address [address] [place] [address] Care Team Providers Care Pin Machine Tender Name Role Phone Ned Manuel MD Primary Care Provider Luis Jorge Jr Unavailable Allergies No Known Allergies Reason For Referral [...] Problem Status W/U Status Risk Notes Problem 898172260 Colon cancer screening (Z12.11) Active confirmed Problem 53259041 Epigastric pain (R10.13) Active confirmed Problem Gastro-esophage al reflux disease without esophagitis (019205423) Gastro-esophageal reflux disease without esophagitis (K21.9) Active confirmed Problem 646981570 Gastroesophageal reflux disease without esophagitis (K21.9) Active confirmed Problem [id number] LUQ pain (R10.12) Active confirmed Vital Signs Temperature 97.3 degrees Fahrenheit 02/14/2024 Blood pressure diastolic 00 mm Hg 02/14/2024 Height 61 in 02/14/2024 Blood pressure systolic 000 mm Hg 02/14/2024 Weight 140 lbs 02/14/2024 BMI 26.45 kg/m2 02/14/2024 Encounters Encounter Location Date Provider Diagnosis [facility] [address] [place] [address] 02/14/2024 Luis Amin Jr Gastroesophageal reflux disease without esophagitis K21.9 and Colon cancer screening Z12.11 [facility] [address] [place] [address] 01/12/2024 Luis Amin Jr Assessments Encounter Date [...] Name:Luis bettencourt Jr, 02/14/2025 10:00:00 AM, [address] [facility] [address] [facility], [address], [place], [address], Insurance Providers Payer Name Payer Address Payer Phone Subscriber Number Group Number Insured Name Patient Relationship to Insured Coverage Start Date Coverage End Date [employer] [place] [address] [place] [address] [phone] [id number] JOSE BHATTI Self - patient is the [...] Abdominoplasty Hospitalization History Reason Date(Month/Year) Hospitalized in [place] with chest pain 03/20, 04/06
--- OUTSIDE RECORDS SUMMARY | 2024-10-28 10:39 | XMS_ITS | Clinical Summary ---
Author Organization [facility]ly [facility] Address [address] [facility] [address] [place] [address] Phone Care Team Providers Care Flash Developer Name Role Phone Luis Amin MD Unavailable [phone] Unknown, Unknown Primary Care Provider Unavai lable [...] till symptoms resolved Concurrently use Afrin Nasal Pease for 5 days only Assessment & Plan [...] contrast. That can be done over at [facility]. There were no focal deficits. If there [...] better Currenlty trying to locate CXR from [facility] Immunizations Immunization Administration Dates Next Due COVID-19 [...] EDT) SODIUM 140 133 - 146 mmol/L [facility] POTASSIUM 4.5 3.3 - 5.1 mmol/L [facility] CHLORIDE 104 96 - 108 mmol/L [facility] CO2 28 21 - 35 mmol/L [facility] BUN 11 6 - 19 mg/dL [facility] CREATININE 0.70 0.5 - 1.5 mg/dL [facility] GLUCOSE 97 70 - 99 mg/dL [facility] ALBUMIN 4.4 3.9 - 4.8 g/dL [facility] TOTAL PROTEIN 7.0 6.5 - 8.0 g/dL [facility] CALCIUM 9.4 8.4 - 10.3 mg/dL [facility] ALKALINE PHOSPHATASE 123(H) 39 - 117 U/L [facility] TOTAL BILIRUBIN 0.4 0.0 - 1.2 mg/dL [facility] AST 23 0 - 37 U/L [facility] ALT 26 0 - 40 U/L [facility] GLOBULIN 2.6 1 - 4.8 g/dL [facility] EGFR 98 >59 mL/min/1.7 3m2 [facility] Comment:Estimated glomerular filtration rate calculated using the CKD-EPI refit equation. ANION GAP 13 10 - 20 mmol/L [facility] Blood 11/27/2022 9:31 AM EDT 11/27/2022 1:28 PM EDT us Jenny Mcbride NP LAB BLOOD ORDERABLES Final Resu lt [facility] [address] [place] [address] * (ABNORMAL) Lipid panel (11/27/2022 9:31 AM EDT) HDL 48 mg/dL [facility] Comment: Interpretation <40 mg/dL: Low HDL cholesterol (major risk factor for CHD) Greater than or equal to 60 mg/dL: High HDL cholesterol ( negative risk factor for CHD) HDL - cholesterol is affected by a number of factors, e.g. smoking, excerise, hormones, sex and age. CHOLESTEROL 245(H) 0 - 240 mg/dL [facility] TRIGLYCERIDES 191(H) 30 - 160 mg/dL [facility] LDL 159(H) 50 - 129 mg/dL [facility] Comment: LDL levels in terms of risk for coronary heart disease: <100 mg/dL: Optimal 100-129 mg/dL: Near or above optimal 130-159 mg/dL: Borderline high 160-189 mg/dL: High >190 mg/dL: Very High CARDIAC RISK RATIO 5.1(H) 3.3 - 4.4 C [facility] Blood 11/27/2022 9:31 AM EDT 11/27/2022 9:33 AM EDT Jenny Mcbride NP LAB BLOOD ORDERABLES Final Resu lt [facility] [address] [place] [address] * COLONOSCOPY FOR RESULT ENTRY ONLY (07/29/2021) [...] AND SYMPTOMS: Right breast pain POS - [id number] Narrative 04/08/2018 1:32 PM EST Full field [...] AND SYMPTOMS: Right breast pain POS - [id number] Jenny Mcbride NP IMG MG EXAMS Final Result * Hepatitis C antibody, qualitative (11/24/2017 10:41 AM EDT) HCV Negative Negative [facility] Comment: This is a screening test and should be confirmed with molecular testing Blood 11/24/2017 10:4 1 AM EDT 11/24/2017 10:42 AM EDT Jenny Mcbride NP LAB BLOOD ORDERABLES Final Resu lt [facility] [address] [place] [address] * PAP SMEAR FOR RESULT ENTRY ONLY (05/11/2017) Historical Provider MD HEALTH MAINTENANCE Final Result from Last 3 Months or Most Recently Relevant to Health Maintenance [place] [address] [place] [address] [place] [address] [place] [address] [place] [place] [address] PPO EPO [facility] PPO EPO [facility] PPO EPO [facility] PPO EPO Care Teams Flash Developer Relationship Specialty Start Date End Date Unknown, Unknown, MD PCP - General 04/20/23 Luis Amin MD [address] [place] [id number] Gastroenterology 11/26/22 Additional Source Comments The information contained in this document represents components of the legal health record. It is not the complete legal health record.[facility]
--- OUTSIDE RECORDS SUMMARY | 2024-10-28 10:39 | XMS_ITS | Encounter Summary ---
Author Organization [facility] Address [address] [facility] [address] [place] [address] Phone Care Team Providers Care Siebel Consultant Name Role Phone Ned Manuel MD Unavailable Shaun Goodrich MD Unavailable Jenny Mcbride ACCOUNTS SUPERVISOR Unavailable [phone] Jenny Mcbride ACCOUNTS SUPERVISOR Primary Care Provider Jenny Mcbride ACCOUNTS SUPERVISOR Primary Care Provider Luis Amin MD Unavailable Unknown, Unknown Primary Care Provider Maria Teresa baker Encounter Details Date Type Department Care Team (Late st Contact Info) Description 02/24/2018 Ancillary Orders [facility],Outside Imaging [address] [place] [address] System, Provider Not In, PhD [address] [address] Social History Tobacco Use Types Packs/Day Years [...] documented as of this encounter Care Teams Siebel Consultant Relationship Specialty Start Date End Date Jenny Mcbride, ACCOUNTS SUPERVISOR [address] [place] [address] PCP - General Family Medicine 05/26/17 09/20/19 Jenny Mcbride ACCOUNTS SUPERVISOR [address] [place] [address] PCP - General Family Medicine 09/21/19 04/19/23 Unknown, Unknown, MD PCP - General 04/20/23 Ned Manuel MD [address] [place] [address] Historical LMR Provider 11/25/16 02/15/21 Shaun Goodrich MD [address] [place] [address] Historical LMR Provider 11/25/16 02/15/21 Jenny Mcbride, ACCOUNTS SUPERVISOR [address] [place] [address] Historical LMR Provider 11/25/16 11/25/22 Luis Amin MD [address] [place] [address] [address] [place] [address] Gastroenterology 11/26/22 documented as of this encounter Additional Source Comments The information contained in this document represents components of the legal health record. It is not the complete legal health record.[facility]
--- OUTSIDE RECORDS SUMMARY | 2024-10-28 10:39 | XMS_ITS | Encounter Summary ---
Author Organization [facility] Address [address] [facility] [address] [place] [address] Phone Care Team Providers Care Sfdc Solution Architect Name Role Phone Ned Manuel MD Unavailable Shaun Goodrich MD Unavailable Jenny Mcbride MUSHROOM GROWTH MEDIA MIXER Unavailable [phone] Jenny Mcbride MUSHROOM GROWTH MEDIA MIXER Primary Care Provider Jenny Mcbride MUSHROOM GROWTH MEDIA MIXER Primary Care Provider Luis Amin MD Unavailable Unknown, Unknown Primary Care Provider Maria Teresa baker Encounter Details Date Type Department Care Team (Late st Contact Info) Description 02/24/2018 Ancillary Orders [facility],Outside Imaging [address] [place] [address] System, Provider Not In, PhD [address] [address] Social History Tobacco Use Types Packs/Day Years [...] documented as of this encounter Care Teams Sfdc Solution Architect Relationship Specialty Start Date End Date Jenny Mcbride, MUSHROOM GROWTH MEDIA MIXER [address] [place] [address] PCP - General Family Medicine 05/26/17 09/20/19 Jenny Mcbride MUSHROOM GROWTH MEDIA MIXER [address] [place] [address] PCP - General Family Medicine 09/21/19 04/19/23 Unknown, Unknown, MD PCP - General 04/20/23 Ned Manuel MD [address] [place] [address] Historical LMR Provider 11/25/16 02/15/21 Shaun Goodrich MD [address] [place] [address] Historical LMR Provider 11/25/16 02/15/21 Jenny Mcbride MUSHROOM GROWTH MEDIA MIXER [address] [place] [address] Historical LMR Provider 11/25/16 11/25/22 Luis Amin MD [address] [place] [address] [address] [place] [address] Gastroenterology 11/26/22 documented as of this encounter Additional Source Comments The information contained in this document represents components of the legal health record. It is not the complete legal health record.[facility]
--- OUTSIDE RECORDS SUMMARY | 2024-10-28 10:39 | XMS_ITS | Encounter Summary ---
Author Organization [facility] Address [address] [facility] [address] [place] [address] Phone Care Team Providers Care Thread Grinder Name Role Phone Ned Manuel MD Unavailable Shaun Goodrich MD Unavailable Jenny Mcbride DRY KILN FEEDER Unavailable [phone] Jenny Mcbride DRY KILN FEEDER Primary Care Provider Jenny Mcbride DRY KILN FEEDER Primary Care Provider Luis Amin MD Unavailable [phone] Unknown, Unknown Primary Care Provider Maria Teresa baker Encounter Details Date Type Department Care Team (Late st Contact Info) Description 02/24/2018 Ancillary Orders [facility],Outside Imaging [address] [place] [address] System, Provider Not In, PhD [address] [address] Social History Tobacco Use Types Packs/Day Years [...] documented as of this encounter Care Teams Thread Grinder Relationship Specialty Start Date End Date Jenny Mcbride, DRY KILN FEEDER [address] [place] [address] PCP - General Family Medicine 05/26/17 09/20/19 Jenny Mcbride DRY KILN FEEDER [address] [place] [address] PCP - General Family Medicine 09/21/19 04/19/23 Unknown, Unknown, MD PCP - General 04/20/23 Ned Manuel MD [address] [place] [address] Historical LMR Provider 11/25/16 02/15/21 Shaun Goodrich MD [address] [place] [address] Historical LMR Provider 11/25/16 02/15/21 Jenny Mcbride DRY KILN FEEDER [address] [place] [address] Historical LMR Provider 11/25/16 11/25/22 Luis Amin MD [address] [place] [address] [address] [place] [address] Gastroenterology 11/26/22 documented as of this encounter Additional Source Comments The information contained in this document represents components of the legal health record. It is not the complete legal health record.[facility]
--- OUTSIDE RECORDS SUMMARY | 2024-10-28 10:39 | XMS_ITS | Encounter Summary ---
Author Organization [facility] Address [address] [facility] [address] [place] [address] Phone Care Team Providers Care Claim Processing Specialist Name Role Phone Ned Manuel MD Unavailable [phone] Shaun Goodrich MD Unavailable [phone] Jenny Mcbride COLLECTION SYSTEMS CONSULTANT Unavailable [phone] Jenny Mcbride COLLECTION SYSTEMS CONSULTANT Primary Care Provider Jenny Mcbride COLLECTION SYSTEMS CONSULTANT Primary Care Provider Luis Amin MD Unavailable Unknown, Unknown Primary Care Provider Maria Teresa baker Encounter Details Date Type Department Care Team (Late st Contact Info) Description 02/24/2018 Ancillary Orders [facility],Outside Imaging [address] [place] [address] System, Provider Not In, PhD [address] [address] Social History Tobacco Use Types Packs/Day Years [...] documented as of this encounter Care Teams Claim Processing Specialist Relationship Specialty Start Date End Date Jenny Mcbride, COLLECTION SYSTEMS CONSULTANT [address] [place] [address] PCP - General Family Medicine 05/26/17 09/20/19 Jenny Mcbride COLLECTION SYSTEMS CONSULTANT [address] [place] [address] PCP - General Family Medicine 09/21/19 04/19/23 Unknown, Unknown, MD PCP - General 04/20/23 Ned Manuel MD [address] [place] [address] Historical LMR Provider 11/25/16 02/15/21 Shaun Goodrich MD [address] [place] [address] Historical LMR Provider 11/25/16 02/15/21 Jenny Mcbride COLLECTION SYSTEMS CONSULTANT [address] [place] [address] Historical LMR Provider 11/25/16 11/25/22 Luis Amin MD [address] [place] [address] [address] [place] [address] Gastroenterology 11/26/22 documented as of this encounter Additional Source Comments The information contained in this document represents components of the legal health record. It is not the complete legal health record.[facility]
--- OUTSIDE RECORDS SUMMARY | 2024-10-28 10:40 | XMS_ITS | Patient Health Record ---
Author Organization [facility] Address [address] [facility] [place] [address] Care Team Providers Care Conservation Assistant Name Role Phone Jenny Mcbride NP Primary Care Provider Reg Thomas Unavailable [phone] Reason For Referral No Information Medications Medication [...] primary osteoarthritis of the ankle and/or foot (817504153) Primary osteoarthrit is, right ankle and foot (M19.071) Active confirmed Problem Localized, primary osteoarthritis of the ankle and/or foot (941752371) Primary osteoarthrit is, left ankle and foot (M19.072) Active confirmed Plan Of Treatment Pending Test Test Name Order Date X ray : Foot, left 3V 02/22/2019 X ray : Foot, right 3V 02/22/201989718, J0702- INJECT or DRAIN, JOINT/BUR SA 02/22/2019 Insurance Providers Payer Name Payer Address Payer Phone Subscriber Number Group Number Insured Name Patient Relationship to Insured Coverage Start Date Coverage End Date [employer] [address] [place] [address] [phone] Ligia Anders Self - patient is the insured Medical (General) History Medical History History ICD Code asthma CAD (Cholesterol) Cataracts High blood pressure Measles Chicken pox Joint implants/screws Surgical History Surgery Date(Month/Year) cataract surgery bunionectomy
== END 2024-10-28 10:37 | disposition home or self-care (01) ==
LOC: HO.XRAY 10:36
PROVIDERS: PCP Nurse Practitioner Family; Visit Provider Nurse Practitioner Family
DX: R06.02 Shortness of breath (principal); R10.2 Pelvic and perineal pain; M25.552 Pain in left hip
CPT/HCPCS: 71046; 73502

== ENCOUNTER → 2024-10-28 10:39 | Outpatient (BNV) | payer BC, SELFPAY | PROVIDERS: PCP Nurse Practitioner Family; Visit Provider Radiology Diagnostic Radiology | DX: M25.552 Pain in left hip (principal); R06.02 Shortness of breath | CPT/HCPCS: 71046; 73502 ==

== ENCOUNTER 2025-01-13 07:04 | Outpatient (REF) | payer BC, SELFPAY ==
--- OUTSIDE RECORDS SUMMARY | 2011-06-15 23:00 | XMS_ITS | Encounter Summary ---
Author Organization [facility] Address [address] [place] [address] Phone Care Team Providers Care Gift Shop Manager Name Role Phone Unavailable Primary Care Provider Unavailabl e Encounter Details Date Type Department Care Team (Late st Contact Info) Description 06/16/2011 Hospital Encounter [facility],Outside Imaging [address] [place] [address] System, Provider Not In, [facility] [address] [address] Social History Tobacco Use Types Packs/Day Years Used Date Smoking Tobacco: Never Smokeless Tobacco: Never Alcohol Use Standard Drinks/Week Comments No 0 (1 standard drink = 0.6 oz pur e alcohol) Child or Family Care Answer Date Record ed Do you have problems with on e of the following making it difficult for you to work, study, or receive health care? No 04/02/2022 Education Answer Date Recorded Are you interested in more education? Not on silvia e 04/02/2024 Are you concerned about learning? Not on file 04/02/2024 No 04/02/2024 No 04/02/2024 Food Answer Date Recorded Within the past 6 months we worried whether our food would run out before we got money to buy more. Never True 04/02/2022 Within the past 6 months the food we bought just didn't last and we didn't have enough money to get more. Never True Residential Stability Answer Date Recor ded What is your housing situation today? I have yovani sing 04/02/2022 How many times have you move d in the past 12 months? Zero (I did not move) 04/02/2022 Paying for Meds Answer Date Recorded Do you have trouble paying for medicines? No 04/02/2022 Paying Utility Bills Answer Date Record ed Do you have trouble paying your heating or elect ricity bill? No 04/02/2022 Transportation Answer Date Recorded Has the lack of transportati on kept you from medical appointments or from getting medications? No 04/02/2022 Unemployment Answer Date Recorded Are you currently unemployed or working on a part-time or temporary basis, and looking for work? No 04/02/2022 Digital Access Answer Date Recorded No 07/06/2022 No 07/06/2022 Reliable internet access at home? Not on file 07/06/2022 Device with a working camera? Not on file Intimate Partner Violence Answer Date R ecorded Denied Basic Needs Not on file 04/02/2022 In the past 12 months have y ou been in a relationship with a person who hurts, threatens, or tries to control you? No 04/02/2022 Worried food would run out Not on file 04/02 In the past 12 months have y ou been in a relationship with a person who hurts, threatens, or tries to control you? No 04/02/2022 Comments No Sex and Gender Information Value Date Recorded Sex Assigned at Not on file Legal Sex Female 9:47 PM EDT Gender Identity Not on file Sexual Orientation Not on file documented as of this encounter Plan of Treatment Not on file documented as of this encounter Procedures Procedure Name Priority Date/Time Associated Diagnosis Comments BI MAMMOGRAM OUTSIDE (NO INTERPRETATION) Routine 06/16/2011 12:00 AM EDT documented in this encounter Results * Mammogram Outside (No Interpretation) (06/16/2011 12:00 AM EDT) Narrative SYSTEMGENERATED, DOCUMENTATION - 02/24/2018 11:09 AM EST This study is for PACS storage only and not for interpretation. us Provider Not In System PhD IMG OUTSIDE IMAGING W /OUT INTERPRETATION Final Result documented in this encounter Visit Diagnoses Not on filedocumented in this encounter Additional Source Comments The information contained in this document represents components of the legal health record. It is not the complete legal health record.[facility]
--- OUTSIDE RECORDS SUMMARY | 2012-02-04 | XMS_ITS | Encounter Summary ---
Author Organization [facility] Address [address] [place] [address] Phone Care Team Providers Care Manager Labor Relations Name Role Phone Unavailable Primary Care Provider Unavailabl e Encounter Details Date Type Department Care Team (Late st Contact Info) Description 02/04/2012 Hospital Encounter [facility],Outside Imaging [address] [place] [address] System, Provider Not In, [facility] [address] [address] Social History Tobacco Use Types Packs/Day Years [...] Comments BI MAMMOGRAM OUTSIDE (NO INTERPRETATION) Routine 02/04/2012 12:00 AM EST documented in this encounter Results * Mammogram Outside (No Interpretation) (02/04/2012 12:00 AM EST) Narrative SYSTEMGENERATED, DOCUMENTATION - 02/24/2018 11:07 AM EST This study is for PACS [...]
--- OUTSIDE RECORDS SUMMARY | 2012-02-04 00:15 | XMS_ITS | Encounter Summary ---
Author Organization [facility] Address [address] [place] [address] Phone Care Team Providers Care Manager Biologics Name Role Phone Unavailable Primary Care Provider Unavailabl e Encounter Details Date Type Department Care Team (Late st Contact Info) Description 02/04/2012 12:15 AM EST Hospital Encounter [facility],Outside Imaging [address] [place] [address] System, Provider [place] In, [place] [address] Social History Tobacco Use Types Packs/Day Years [...] Name Priority Date/Time Associated Diagnosis Comments BI US BREAST OUTSIDE (NO INTERPRETATION) Routine 02/04/2012 12:15 AM EST documented in this encounter Results * US Breast Outside (No Interpretation) (02/04/2012 12:15 AM EST) Narrative SYSTEMGENERATED, DOCUMENTATION - 02/24/2018 11:08 AM EST This study is for PACS storage only and not for interpretation. us Provider Not In System PhD IMG OUTSIDE IMAGING W /OUT INTERPRETATION Final Result documented in this encounter Visit Diagnoses Not on filedocumented in this encounter Additional Source Comments The information contained in this document represents components of the legal health record. It is not the complete legal health record.[facility]
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
--- OUTSIDE RECORDS SUMMARY | 2025-01-13 07:07 | XMS_ITS | Encounter Summary ---
Author Organization [facility] Address [address] [facility] [address] [place] [address] Phone Care Team Providers Care Customs Examiner Name Role Phone Ned Manuel MD Unavailable [phone] Shaun Goodrich MD Unavailable [phone] Jenny Mcbride MOTORCYCLE TESTER Unavailable [phone] Jenny Mcbride MOTORCYCLE TESTER Primary Care Provider Jenny Mcbride MOTORCYCLE TESTER Primary Care Provider Luis Amin MD Unavailable [phone] Unknown, Unknown Primary Care Provider Maria Teresa baker Encounter Details Date Type Department Care Team (Late st Contact Info) Description 02/24/2018 Ancillary Orders [facility],Outside Imaging [address] [place] [address] System, Provider Not In, PhD [address] [address] Social History Tobacco Use Types Packs/Day Years [...] documented as of this encounter Care Teams Customs Examiner Relationship Specialty Start Date End Date Jenny Mcbride, MOTORCYCLE TESTER [address] [place] [address] PCP - General Family Medicine 05/26/17 09/20/19 Jenny Mcbride MOTORCYCLE TESTER [address] [place] [address] PCP - General Family Medicine 09/21/19 04/19/23 Unknown, Unknown, MD PCP - General 04/20/23 Ned Manuel MD [address] [place] [address] Historical LMR Provider 11/25/16 02/15/21 Shaun Goodrich MD [address] [place] [address] Historical LMR Provider 11/25/16 02/15/21 Jenny Mcbride, MOTORCYCLE TESTER [address] [place] [address] Historical LMR Provider 11/25/16 11/25/22 Luis Amin MD [address] [place] [address] [address] [place] [address] Gastroenterology 11/26/22 documented as of this encounter Additional Source Comments The information contained in this document represents components of the legal health record. It is not the complete legal health record.[facility]
--- OUTSIDE RECORDS SUMMARY | 2025-01-13 07:07 | XMS_ITS | Encounter Summary ---
Author Organization [facility] Address [address] [facility] [address] [place] [address] Phone Care Team Providers Care Surveillance Dual Rate Officer Name Role Phone Ned Manuel MD Unavailable Shaun Goodrich MD Unavailable Jenny Mcbride TITLE INSPECTOR Unavailable [phone] Jenny Mcbride TITLE INSPECTOR Primary Care Provider Jenny Mcbride TITLE INSPECTOR Primary Care Provider Luis Amin MD Unavailable Unknown, Unknown Primary Care Provider Maria Teresa baker Encounter Details Date Type Department Care Team (Late st Contact Info) Description 02/24/2018 Ancillary Orders [facility],Outside Imaging [address] [place] [address] System, Provider Not In, PhD [address] [address] Social History Tobacco Use Types Packs/Day Years [...] documented as of this encounter Care Teams Surveillance Dual Rate Officer Relationship Specialty Start Date End Date Jenny Mcbride, TITLE INSPECTOR [address] [place] [address] PCP - General Family Medicine 05/26/17 09/20/19 Jenny Mcbride TITLE INSPECTOR [address] [place] [address] PCP - General Family Medicine 09/21/19 04/19/23 Unknown, Unknown, MD PCP - General 04/20/23 Ned Manuel MD [address] [place] [address] Historical LMR Provider 11/25/16 02/15/21 Shaun Goodrich MD [address] [place] [address] Historical LMR Provider 11/25/16 02/15/21 Jenny Mcbride TITLE INSPECTOR [address] [place] [address] Historical LMR Provider 11/25/16 11/25/22 Luis Amin MD [address] [place] [address] [address] [place] [address] Gastroenterology 11/26/22 documented as of this encounter Additional Source Comments The information contained in this document represents components of the legal health record. It is not the complete legal health record.[facility]
--- OUTSIDE RECORDS SUMMARY | 2025-01-13 07:07 | XMS_ITS | Encounter Summary ---
Author Organization [facility] Address [address] [facility] [address] [place] [address] Phone Care Team Providers Care Crowning Inspector Name Role Phone Ned Manuel MD Unavailable Shaun Goodrich MD Unavailable Jenny Mcbride HRBP Unavailable [phone] Jenny Mcbride HRBP Primary Care Provider Jenny Mcbride HRBP Primary Care Provider Luis Amin MD Unavailable Unknown, Unknown Primary Care Provider Maria Teresa baker Encounter Details Date Type Department Care Team (Late st Contact Info) Description 02/24/2018 Ancillary Orders [facility],Outside Imaging [address] [place] [address] System, Provider Not In, PhD [address] [address] Social History Tobacco Use Types Packs/Day Years [...] documented as of this encounter Care Teams Crowning Inspector Relationship Specialty Start Date End Date Jenny Mcbride, HRBP [address] [place] [address] PCP - General Family Medicine 05/26/17 09/20/19 Jenny Mcbride HRBP [address] [place] [address] PCP - General Family Medicine 09/21/19 04/19/23 Unknown, Unknown, MD PCP - General 04/20/23 Ned Manuel MD [address] [place] [address] Historical LMR Provider 11/25/16 02/15/21 Shaun Goodrich MD [address] [place] [address] Historical LMR Provider 11/25/16 02/15/21 Jenny Mcbride HRBP [address] [place] [address] Historical LMR Provider 11/25/16 11/25/22 Luis Amin MD [address] [place] [address] [address] [place] [address] Gastroenterology 11/26/22 documented as of this encounter Additional Source Comments The information contained in this document represents components of the legal health record. It is not the complete legal health record.[facility]
--- OUTSIDE RECORDS SUMMARY | 2025-01-13 07:07 | XMS_ITS | Clinical Summary ---
Author Organization [facility] Address [address] [place] [phone] Phone Care Team Providers Care Technology Recruiter Name Role Phone Luis Amin MD Unavailable Unknown, Unknown Primary Care Provider Unavai lable [...] till symptoms resolved Concurrently use Afrin Nasal [place] for 5 days only Assessment & Plan [...] contrast. That can be done over at [facility]. There were no focal deficits. If there [...] better Currenlty trying to locate CXR from [facility] Immunizations Immunization Administration Dates Next Due COVID-19 [...] COLONOSCOPY 2005 RSV VACCINE (1 - Risk 50-74 years 1-dose series) 2010 PAP SMEAR 05/11/2022 05/11/2017, 10/18/2013 DEPRESSION SCREENING 04/02/2023 04/02/2022 BLOOD PRESSURE 05/28/2023 11/26/2022 Adult Td,Tdap Booster 08/04/2023 08/03/2013 CREATININE LEVEL 11/28/2023 11/27/2022, 11/2022, 08/01/2021, Additional history exists POTASSIUM LEVEL 03/20/2024 03/20/2023, 11/09, 04/17/2022, Additional history exists MAMMOGRAM 04/09/2024 04/09/2022, 03/0 02/2018, 07/02/2016, Additional history exists INFLUENZA VACCINE (#1) 2024 , 12/18/2021, 12/31/2020, Additional history exists COVID-19 VACCINE (3 - 2025-26 season) 2024 06/26/2020, 05/29/2020 SCREENING FOR DIABETES [...] AM EDT Mixed hyperlipidemia COMPREHENSIVE METABOLIC PANEL (CMP) Routine 11/27/2022 9:31 AM EDT Mixed hyperlipidemia BI MAMMOGRAM SCREENING (BILATERAL) Routine 04/09/2022 2:00 PM EST Encounter for screening mammogram for malignant neoplasm of breast COLONOSCOPY FOR RESULT ENTRY ONLY Routine 07/29/2021 HEPATITIS C ANTIBODY, QUALITATIVE Routine 11/24/2017 10:41 AM EDT Elevated LFTs HM PAP SMEAR FOR RESULT ENTRY ONLY Routine 05/11/2017 from Last 3 Months or Most Recently Relevant to Health Maintenance Results * (ABNORMAL) Comprehensive metabolic panel (11/27/2022 9:31 AM EDT) SODIUM 140 133 - 146 mmol/L [facility] POTASSIUM 4.5 3.3 - 5.1 mmol/L [facility] CHLORIDE 104 96 - 108 mmol/L [facility] CO2 28 21 - 35 mmol/L [facility] BUN 11 6 - 19 mg/dL [facility] CREATININE 0.70 0.5 - 1.5 mg/dL [facility] GLUCOSE 97 70 - 99 mg/dL [facility] ALBUMIN 4.4 3.9 - 4.8 g/dL [facility] TOTAL PROTEIN 7.0 6.5 - 8.0 g/dL [facility] CALCIUM 9.4 8.4 - 10.3 mg/dL [facility] ALKALINE PHOSPHATASE 123(H) 39 - 117 U/L [facility] TOTAL BILIRUBIN 0.4 0.0 - 1.2 mg/dL [facility] AST 23 0 - 37 U/L [facility] ALT 26 0 - 40 U/L [facility] GLOBULIN 2.6 1 - 4.8 g/dL [facility] EGFR 98 >59 mL/min/1.7 3m2 [facility] Comment:Estimated glomerular filtration rate calculated using the CKD-EPI refit equation. ANION GAP 13 10 - 20 mmol/L [facility] Blood 11/27/2022 9:31 AM EDT 11/27/2022 1:28 PM EDT us Jenny Mcbride NP LAB BLOOD BKR ORDERABLES Final Result [facility] [address], [place] [id number] * (ABNORMAL) Lipid panel (11/27/2022 9:31 AM EDT) HDL 48 mg/dL [facility] Comment: Interpretation <40 mg/dL: Low HDL cholesterol (major risk factor for CHD) Greater than or equal to 60 mg/dL: High HDL cholesterol ( negative risk factor for CHD) HDL - cholesterol is affected by a number of factors, e.g. smoking, excerise, hormones, sex and age. CHOLESTEROL 245(H) 0 - 240 mg/dL [facility] TRIGLYCERIDES 191(H) 30 - 160 mg/dL [facility] LDL 159(H) 50 - 129 mg/dL [facility] Comment: LDL levels in terms of risk for coronary heart disease: <100 mg/dL: Optimal 100-129 mg/dL: Near or above optimal 130-159 mg/dL: Borderline high 160-189 mg/dL: High >190 mg/dL: Very High CARDIAC RISK RATIO 5.1(H) 3.3 - 4.4 [facility] Blood 11/27/2022 9:31 AM EDT 11/27/2022 9:33 AM EDT Jenny Mcbride NP LAB BLOOD BKR ORDERABLES Final Result [facility] [address], [place] [phone] * COLONOSCOPY FOR RESULT ENTRY ONLY (07/29/2021) [...] AND SYMPTOMS: Right breast pain POS - [id number] Narrative 04/08/2018 1:32 PM EST Full field [...] AND SYMPTOMS: Right breast pain POS - [id number] Jenny Mcbride SENIOR BIOINFORMATICS SPECIALIST IMG MG EXAMS Final Result * Hepatitis C antibody, qualitative (11/24/2017 10:41 AM EDT) HCV Negative Negative [facility] Comment: This is a screening test and should be confirmed with molecular testing Blood 11/24/2017 10:4 1 AM EDT 11/24/2017 10:42 AM EDT Jenny Mcbride NP LAB BLOOD BKR ORDERABLES Final Result [facility] [address] [place] [address] * PAP SMEAR FOR RESULT ENTRY ONLY (05/11/2017) Historical Provider MD HEALTH MAINTENANCE Final Result from Last 3 Months or Most Recently Relevant to Health Maintenance [place] [address] [place] [address] [place] [address] [place] [address] PPO EPO [facility] PPO EPO [facility] PPO EPO [facility] PPO EPO [facility] PPO EPO Care Teams Technology Recruiter Relationship Specialty Start Date End Date Unknown, Unknown, MD PCP - General 04/20/23 Luis Amin MD [address] [place] [id number] Gastroenterology 11/26/22 Additional Source Comments The information contained in this document represents components of the legal health record. It is not the complete legal health record.[facility]
--- OUTSIDE RECORDS SUMMARY | 2025-01-13 07:07 | XMS_ITS | Encounter Summary ---
Author Organization [facility] Address [address] [employer] [facility] [address] [place] [phone] Phone Care Team Providers Care Technical Operations Manager Name Role Phone Ned Manuel MD Unavailable [phone] Shaun Goodrich MD Unavailable Jenny Mcbride AGRICULTURAL EQUIPMENT SALESPERSON Unavailable [phone] Jenny Mcbride AGRICULTURAL EQUIPMENT SALESPERSON Primary Care Provider Jenny Mcbride AGRICULTURAL EQUIPMENT SALESPERSON Primary Care Provider Luis Amin MD Unavailable Unknown, Unknown Primary Care Provider Maria Teresa baker Encounter Details Date Type Department Care Team (Late st Contact Info) Description 02/24/2018 Ancillary Orders [facility],Outside Imaging [address] [place] [address] System, Provider Not In, PhD [address] [address] Social History Tobacco Use Types Packs/Day Years [...] documented as of this encounter Care Teams Technical Operations Manager Relationship Specialty Start Date End Date Jenny Mcbride, AGRICULTURAL EQUIPMENT SALESPERSON [address] [place] [phone] PCP - General Family Medicine 05/26/17 09/20/19 Jenny Mcbride AGRICULTURAL EQUIPMENT SALESPERSON [address] [place] [id number] PCP - General Family Medicine 09/21/19 04/19/23 Unknown, Unknown, MD PCP - General 04/20/23 Ned Manuel MD [address] [place] [id number] Historical LMR Provider 11/25/16 02/15/21 Shaun Goodrich MD [address] [place] [id number] Historical LMR Provider 11/25/16 02/15/21 Jenny Mcbride, AGRICULTURAL EQUIPMENT SALESPERSON [address] [place] [phone] Historical LMR Provider 11/25/16 11/25/22 Luis Amin MD [address] [place] [address] [address] [place] [phone] Gastroenterology 11/26/22 documented as of this encounter Additional Source Comments The information contained in this document represents components of the legal health record. It is not the complete legal health record.[facility]
--- OUTSIDE RECORDS SUMMARY | 2025-01-13 07:07 | XMS_ITS | Clinical Summary ---
Author Organization [facility] Address [address] [place] [address] Phone Care Team Providers Care Date Pitter Name Role Phone Shani James Primary Care Provider [phone] Allergies No known active allergies Medications hydrOXYzine HCL (ATARAX) 10 mg tablet Take 1 tablet (10 mg total) by mouth 1 (one) time each day if needed. 08/13/19 24 Active brimonidine (ALPHAGAN) 0.2 % ophthalmic solution Administer 1 drop into the right eye 2 (two) times a day. Active magnesium [...] each day. 90 each 3 02/07/20 24 025 Active coenzyme Q-10 30 mg capsule [...] eye twice a day 10/05/19 25 Active RABEprazole (ACIPHEX) 20 mg EC tablet Take 1 tablet (20 mg total) by mouth 1 (one) time each day before breakfast. 90 each 1 12/20/19 25 026 Active pantoprazole (PROTONIX) 40 mg EC tablet TAKE 1 TABLET (40 MG TOTAL) BY MOUTH 2 (TWO) TIMES A DAY BEFORE MEALS. DO NOT CRUSH, CHEW, OR SPLIT. 180 tablet 1 10/24/19 25 025 Discontinued Active Problems Problem Noted Date Diagnosed Date Primary localized osteoarthrosis of ankle and fo ot 07/06/2024 History of stress fracture 05/03/2024 Invasive ductal carcinoma of breast, female, right (CMS/HCC V24, CMS/HCC V28) 03/15/2024 Cancer Staging:Pathologic:Stage IA(pT1c, pN0, cM0, G2, ER+, MS+, HER2-, Oncotype DX score: 5) - Signed by Bridget Allen MD on 05/10/2024 History of breast augmentation 03/15/2024 Precordial pain 01/04/2024 Overview (10/30/2024): March 2023 - echocardiogram Conclusions: - Normal left ventricular size, thickness, and systolic function. The visually estimated ejection fraction is between 60-64%. - Diastolic function is normal for age. - Normal right ventricular cavity size and systolic function. March 2023 coronary CTA that showed modest amount of calcium in LAD but CT angiogram showed 25 to 40% narrowing in this vessel with no obstructive lesions elsewhere - Tricuspid regurgitation envelope is inadequate for calculation of right ventricular systolic pressure. Assessment & Plan (10/30/2024 8:54 AM EDT): She continues to have noncardiac chest pain that last seconds, typically at night that wakes her from sleep. She had a reassuring coronary CTA. She has been quite fatigued as well with labs unrevealing. All these symptoms have been since her significant infection last year at which time she had COVID. I suspect long hauler syndrome. We will get an echocardiogram and if this is normal, she should consider evaluation at a long hauler clinic. I did provide resources to her. Orders: Transthoracic echocardiogram (TTE) complete with PRN contrast, bubble, strain, and 3D order panel; Future Coronary artery disease invo lving southern ute coronary artery of southern ute heart without angina pectoris 08/06/2023 Assessment & Plan (10/30/2024 8:54 AM EDT): Coronary CTA showed nonobstructive CAD. No clear-cut anginal symptoms. Will update echocardiogram. Continue with aspirin and statin. We discussed risk reduction through lifestyle choices including healthy diet, routine exercise and weight management. Orders: ECG 12 lead Transthoracic echocardiogram (TTE) complete with PRN contrast, bubble, strain, and 3D order panel; Future Assessment & Plan (01/04/2024 12:45 PM EST): Pleasant 63-year-old woman presented to a hospital in [place] several months ago for evaluation of abrupt [...] symptoms. Mixed hyperlipidemia 08/06/2023 Assessment & Plan (10/30/2024 8:54 AM EDT): Continue with statin therapy. Assessment & Plan (01/04/2024 12:45 PM EST): [...] 05/21/2017 Essential hypertension 05/21/2017 Assessment & Plan (10/30/2024 8:54 AM EDT): Controlled. No on antihypertensives. Orders: ECG 12 lead Assessment & Plan (01/04/2024 12:45 PM EST): [...] ears 05/21/2017 Chiari I malformation (CMS/HCC V24, [facility] V28) 05/21/2017 Chronic gastritis without bleeding 05/21/2017 External hemorrhoids 05/21/2017 Glaucoma of right eye 05/21/2017 Encounters Date Type Department Care Team Description 11/29/2024 Telephone [facility] Hematology Oncology [address] [place] [address] Solitario Mcintyre MD 11/02/2024 Telephone [facility] Hematology Oncology [address] [place] [address] Kamala Myers MA 10/30/2024 3:00 PM EDT Ancillary Procedure [facility] Cardiology [facility] [address] [place] [address] Coronary artery disease involving southern ute coronary artery of southern ute heart without angina pectoris; Precordial pain 10/30/2024 8:10 AM EDT Office Visit [facility] Cardiology [facility] [address] [place] [address] Gonzalez Peña NP Coronary artery disease involving southern ute coronary artery of southern ute heart without angina pectoris (Primary Dx); Essential hypertension; Precordial pain; Mixed hyperlipidemia 10/19/2024 9:45 AM EDT Office Visit [facility] Hematology Oncology [address] [place] [phone] Solitario Mcintyre MD Invasive ductal carcinoma of breast, female, right ([facility] V24, [facility] V28) (Primary Dx); Lymphedema of breast 10/18/2024 1:13 PM EDT - 10/18/2024 11:59 PM EDT Hospital Encounter [facility] Pulmonary [address] [place] [address] Discharge Disposition: Home or Self Care from Last 3 Months Immunizations Immunization Administration Dates Next Due COVID-19 (Moderna) 6mo [...] without complication Coronary artery disease invo lving southern ute coronary artery of southern ute heart without angina pectoris 08/06/2023 Primary hypertension 08/06/2023 GERD (gastroesophageal reflux disease) Mixed hyperlipidemia 08/06/2023 Migraine without status migrainosus, not intract able 08/06/2023 Carotid artery calcification B Blindness R EYE Diverticulosis Cancer (CMS/HCC V24, [facility] V28) r BREAST CA Breast cancer (CMS/[facility] V24, CMS/[facility] V28) Family History Medical History Relation Name Comments Heart disease Brother 1 Mata Chago Heart disease Brother 2 Hermilo Chago Diabetes [...] for your loved ones. For example, child neurologist or elderly care for an older adult? [...] Date Recorded What is your living situation? Unrecognized valu e 05/20/2024 Interpersonal Safety Answer Date Record ed Physical Abuse Unrecognized value 04/20/2024 Verbal Abuse Unrecognized value 04/20/2024 Education Answer Date Recorded What is the highest level of school you have completed or the highest degree you have received? Master's degree (e.g., MA, MS, Shaun, MEd, STITCH [employer]ING MACHINE TENDER, AMAURY) 02/07/2024 Comments No Sex and Gender [...] Sign Reading Time Taken Comments Blood Pressure 114/70 10/30/2024 3:23 PM EDT Pulse 83 10/30/2024 8:10 AM EDT Temperature 36.7 C (98.1 F) 10/19/2024 10:13 AM EDT Respiratory Rate 18 08/17/2024 1:06 PM EDT Oxygen Saturation 96% 10/30/2024 8:10 AM EDT Inhaled Oxygen Concentration - - Weight 64.9 kg (143 lb) 10/30/2024 3:23 PM EDT Height 152.4 cm (5') 10/30/2024 3:23 PM EDT Body Mass Index 27.93 10/30/2024 3:23 PM EDT Plan of Treatment Upcoming Encounters Date Type Department Care Team (Late st Contact Info) Description 02/07/2025 11:30 AM EST Office Visit Internal Medicine - [address] [place] [address] Bk Otero MD [address] [place] [address] 03/06/2025 9:30 AM EST [facility]ointment [facility] [address] [address] 03/07/2025 2:30 PM EST Office Visit [address] [address] Roseann Porter MD [address] [place] [phone] 04/18/2025 10:00 AM EDT Office Visit [facility] Hematology Oncology [address] [place] [phone] Solitario Mercedes MD [address] [place] [phone] Health Maintenance Due Date Last Done Comments Cervical Cancer Screening: Pap Smear 1981 RSV Immunization Adult Patients (1 - Risk 50-74 years 1-dose series) 2010 DTaP,Tdap,and Td Vaccines (2 - Td or Tdap) 08/04/2023 08/03/2013 HIV Screening 11/16/2023 COVID-19 Vaccine ( season) 2024 10/19/2023, 06/26/2020, 05/29/2020 Hypertension/CHF/CAD Annual BMP Blood Test 02/06/2025 02/07/2024, [...] Completed 08/10/2023, 018 Depression Screening Completed 05/20/2024 Influenza Vaccine Completed 10/27/2024, , 11/26/2022, Additional history exists HIB Vaccines Aged Out No longer eligi [...] this topic Medical Devices Implanted Type Area Coremaker Bench Device Identifier Shelf Expiration Date Model / Serial / Lot Marker Hydromark 15g Butterfly T4 Ti - [id number] Implanted:Qty: 1 on 03/08/2024 at [facility] Implants Right: Breast DEVICOR MED PROD MAMMOTOME [id number] 15-T4 / / [id number] Marker 18ga Magseed 7cm - [id number] - [id number] Implanted:Qty: 1 on 04/19/2024 by Lewis Land MD at [facility] Implants Right: Breast DEVICOR [employer] [id number] 08/07/2025 [id number] / [id number] Procedures Procedure Name Priority Date/Time Associated Diagnosis Comments TRANSTHORACIC ECHOCARDIOGRAM (TTE) COMPLETE Routine 10/30/2024 3:23 PM EDT Coronary artery disease involving southern ute coronary artery of southern ute heart without angina pectoris Precordial pain ECG 12-LEAD Routine 10/30/2024 8:18 AM EDT Coronary artery disease involving southern ute coronary artery of southern ute heart without angina pectoris Essential hypertension HC SPIROMETRY BRONCHODILATION RESPONSIVENESS PRE/POST BRONCHODILATOR ADMINISTRATION [...] Recently Relevant to Health Maintenance Results * TRANSTHORACIC ECHOCARDIOGRAM (TTE) COMPLETE (10/30/2024 3:23 PM EDT) Left Atrium Minor Flippin 4.5 cm CV PACS Left Atrium Major Flippin 4.7 cm CV PACS LA Area Sys (A2C) 14 cm2 CV PACS LA Area Sys (A4C) 16 cm2 CV PACS LA Volume (BP) 40 mL CV PACS RA Area 11.8 cm2 CV PACS RA 2D Volume 26 mL CV PACS AV Mean Gradient 3 mmHg CV PACS AV Mean Gradient 3 mmHg CV PACS AV Mean Gradient 3 mmHg CV PACS Ao VTI 26.8 cm CV PACS AV Peak Yvan 1.3 m/s CV PACS AV Peak Gradient 6 mmHg CV PACS AV Area Continuity Equation 2.2 cm2 CV PACS AV Area Peak Velocity 2.3 cm2 CV PACS Aortic Sinus Valsalva 3.3 cm CV PACS Ascending Aorta 3.2 cm CV PACS IVSD 0.9 0.6 - 0.9 cm CV PACS LVIDD 4.0 3.8 - 5.2 cm CV PACS LVIDS 2.6 2.2 - 3.5 cm CV PACS LVOT Diameter 2.0 cm CV PACS LVOT Mean Yvan 0.6 m/s CV PACS LVOT Mean Grad 2 mmHg CV PACS LVOT Mean Grad 2 mmHg CV PACS LVOT Peak VTI 19.2 cm CV PACS LVOT Peak Yvan 0.9 m/s CV PACS LVOT Peak Gradient 3 mmHg CV PACS LVPWD 0.9 0.6 - 0.9 cm CV PACS LVOT Area 3.1 cm2 CV PACS LVOT Stroke Volume 60 mL CV PACS E Wave Deceleration Time 211 119 - 242 ms CV PACS MV Peak A Yvan 0.75 m/s CV PACS MV Peak E Yvan 0.64 m/s CV PACS MV Mean Gradient 1 mmHg CV PACS MV Mean Gradient 1 mmHg CV PACS MV Mean Gradient 1 mmHg CV PACS MV VTI 23.5 cm CV PACS Mitral Valve Max Velocity 0.8 m/s CV PACS MV Peak Gradient 3 mmHg CV PACS MV Area Continuity Equation 2.6 cm2 CV PACS PV Acceleration Time 134 ms CV PACS PV Acceleration Time 162 ms CV PACS PV Acceleration Time 148 ms CV PACS RV Diastolic Basal Dimension 3.2 2.5 - 4.1 cm CV PACS RV S' 12 cm/s CV PACS TAPSE 21 mm CV PACS TR Peak Velocity 1.82 m/s CV PACS TR Peak Gradient 13 mmHg CV PACS LVOT Stroke Index 37 mL/m2 CV PACS Relative Wall Thickness ratio 0.45 CV PACS LVOT:AV VTI Index 0.72 CV PACS FS 35 % CV PACS LV Mass 2D 110 g CV PACS Ascending Aorta Index 1.98 cm/m2 CV PACS MV VTI:LVOT VTI ratio 1.2 CV PACS LVOT flow 188 mL/s CV PACS RA 2D Volume Index 16 mL/m2 CV PACS JULIANA Index (VTI) 1.39 cm2/m2 CV PACS JULIANA Index (Pk Yvan) 1.42 cm2/m2 CV PACS LVIDD Index 2.47 cm/m2 CV PACS LVIDS Index 1.60 cm/m2 CV PACS AV Velocity Ratio 0.69 CV PACS E/A Ratio 0.9 CV PACS LA Volume Index (BP) 25 mL/m2 CV PACS LV Mass Index 2D 68 g/m2 CV PACS BSA 1.66 m2 CV PACS Anatomical Region Laterality Modality Ultrasound Narrative 10/30/2024 4:15 PM EDT Left ventricle cavity size is normal. Wall thickness is normal. Systolic function is normal with an ejection fraction of 55-60%. There are no regional LV wall motion abnormalities No hemodynamically significant valvular dysfunction There is no prior study available for comparison There is report of a study from outside facility in 2023, and compared to this report there does not appear to be a substantial change Left Ventricle Left ventricle cavity size is normal. Wall thickness is normal. Systolic function is normal with an ejection fraction of 55-60%. There are no regional LV wall motion abnormalities. There is no diastolic dysfunction. Right Ventricle Right ventricle cavity appears normal. Systolic function is normal. Left Atrium Left atrium cavity size is normal. Right Atrium Right atrium cavity is normal. IVC/SVC Inferior vena cava structure is normal. RA pressures is estimated to be 3 mmHg (IVC diameter <21 mm and decreases >50% during inspiration). Mitral Valve The leaflets are mildly thickened. There is mild annular calcification. There is trace regurgitation. There is no evidence of mitral valve stenosis. Tricuspid Valve Tricuspid valve structure is normal. There is trace regurgitation. There is no evidence of tricuspid valve stenosis. Aortic Valve The aortic valve is trileaflet. The leaflets are mildly thickened. There is no significant regurgitation. There is no evidence of aortic valve stenosis. Pulmonic Valve Visualized portions of the pulmonic valve appear normal. No significant pulmonic valve regurgitation. There is no evidence of pulmonic valve stenosis. Ascending Aorta The aorta appears normal in size. Pericardium Pericardium appears normal. There is no pericardial effusion. Study Details Overall the study quality was adequate. Wall Scoring Baseline Score Index: 1.00 The left ventricular wall motion is normal. us Gonzalez Peña CLEANING SPECIALIST CV ECHO PROCEDURES Final Re sult * ECG 12 lead (10/30/2024 8:18 AM EDT) Ventricular Rate ECG 82 BPM GEMUSE Atrial Rate 82 BPM GEMUSE P-R Interval 130 ms GEMUSE QRS Duration 78 ms GEMUSE Q-T Interval 396 ms GEMUSE QTc 462 ms GEMUSE P Wave Flippin 16 degrees GEMUSE R Flippin 80 degrees GEMUSE T Flippin 91 degrees GEMUSE ECG Interpretation Normal sinus rhythm Nonspecific T wave abnormality Abnormal ECG When compared with ECG of 12-APR-2024 09:58, No significant change was found Confirmed by MD CALLES JOHN ([id number]) on 10/30/2024 8:29:45 AM GEMUSE 10/30/2024 8:18 AM EDT 10/30/2024 8:29 AM EDT us Gonzalez Peña NP ECG ORDERABLES Final Resul t GEMUSE * Pulmonary function testing: Carbon Monoxide Diffusing Capacity, Nitrogen Wash Out, Spirometry with Bronchodilator (10/18/2024 1:59 PM EDT) Narrative Keith Chahal MD - 10/21/2024 11:30 AM EDT Table formatting from the original result was not included. Images from the original result were not included. [facility] [address] [place] [id number] Pulmonary Functions Report Date of service: 10/18/24 [...] 06/06/2024 3:13 PM EDT Osteopenia. Telerad [place] ([id number]) -------- FINAL REPORT -------- Dictated By: Joan Naranjo Dictated Date: 06/06/2024 15:12 ET Assigned Physician: Joan Naranjo Reviewed and Electronically Signed By: Joan Naranjo Signed Date: 06/06/2024 15:13 ET Workstation ID: [id number] Transcribed By: Self Edit Transcribed Date: 06/06/2024 15:12 ET Narrative 06/06/2024 3:13 PM EDT History: Low estrogen state due to menopause. Personal history of breast carcinoma, on antiestrogen therapy. Comparison: No comparison study at this institution. Findings: Bone densitometry is performed utilizing dual energy x-ray absorptiometry (DXA) in the FOLUP unit. The lumbar spine and proximal femora [...] utilizing dual energy x-ray absorptiometry(DXA) in the FOLUP unit. The lumbar spine and proximal femora [...] Hip 1.0 percent. IMPRESSION: Osteopenia. Telerad [place] ([id number]) -------- FINAL REPORT -------- Dictated By: Joan Naranjo Dictated Date: 06/06/2024 15:12 ET Assigned Physician: Joan Naranjo Reviewed and Electronically Signed By: Joan Naranjo Signed Date: 06/06/2024 15:13 ET Workstation ID: [id number] Transcribed By: Self Edit Transcribed Date: 06/06/2024 15:12 ET us Subramony Daren BRIGGS IMG DXA PROCEDURES Final Result * (ABNORMAL) MG [...] biopsy of right breast recommended. Mammo Location: [facility], [facility], [address] [place] [address] -------- FINAL REPORT -------- Dictated By: Jorje Cochran Dictated Date: 02/29/2024 08:13 ET Assigned Physician: Jorje Cochran Reviewed and Electronically Signed By: Jorje Cochran Signed Date: 02/29/2024 08:43 ET Workstation ID: [id number] Transcribed By: Self Edit Transcribed Date: 02/29/2024 [...] and CC projection is performed in the HealthyOute 2000-D unit. Computer aided detection utilizing the 3d Vision Systems system was utilized. FINDINGS: The breasts are [...] MLO and CC projection is performed in theAdaptive Digital Power Senographe 2000-D unit. Computer aided detection utilizing the Exercise the Worldystem was utilized. FINDINGS: The breasts are seen [...] biopsy of right breast recommended. Mammo Location: [facility], [facility], [address] [place] [id number] -------- FINAL REPORT -------- Dictated By: Jorje Cochran Dictated Date: 02/29/2024 08:13 ET Assigned Physician: Jorje Cochran Reviewed and Electronically Signed By: Jorje Cochran Signed Date: 02/29/2024 08:43 ET Workstation ID: [id number] Transcribed By: Self Edit Transcribed Date: 02/29/2024 08:25 ET Bk Otero MD IM BI PROCEDURES Final Result * (ABNORMAL) Comprehensive metabolic panel (02/07/2024 9:45 AM EST) Sodium 140 133 - 145 mmol/L LAB CHEMISTRY METHOD 02/07/2024 4:21 PM [facility] Potassium 4.5 3.5 - 5.5 mmol/L LAB CHEMISTRY METHOD 02/07/2024 4:21 PM [facility] Chloride 107 96 - 110 mmol/L LAB CHEMISTRY METHOD 02/07/2024 4:21 PM [facility] CO2 29 21 - 32 mmol/L LAB CHEMISTRY METHOD 02/07/2024 4:21 PM [facility] Anion Gap 4 3 - 11 LAB CHEMISTRY METHOD 02/07/2024 4:21 PM [facility] Glucose 87 70 - 100 mg/dL LAB CHEMISTRY METHOD 02/07/2024 4:21 PM [facility] BUN 16 5 - 25 mg/dL LAB CHEMISTRY METHOD 02/07/2024 4:21 PM [facility] Creatinine 0.76 0.50 - 1.10 mg/dL LAB CHEMISTRY METHOD 02/07/2024 4:21 PM [facility] eGFR 88 >=60 mL/min/1. 73m2 LAB CHEMISTRY METHOD 02/07/2024 4:21 PM [facility] Comment:Calculation based on the Chronic Kidney Disease Epidemiology Collaboration (CKD-EPI) equation refit without adjustment for race. BUN/Creatinine Ratio 21.1 LAB CHEMISTRY METHOD 02/07/2024 4:21 PM [facility] Calcium 9.3 8.5 - 10.5 mg/dL LAB CHEMISTRY METHOD 02/07/2024 4:21 PM [facility] AST (SGOT) 23 10 - 42 unit/L LAB CHEMISTRY METHOD 02/07/2024 4:21 PM [facility] ALT (SGPT) 37 10 - 60 unit/L LAB CHEMISTRY METHOD 02/07/2024 4:21 PM [facility] Alkaline Phosphatase 140(H) 42 - 121 unit/L LAB CHEMISTRY METHOD 02/07/2024 4:21 PM [facility] Total Protein 7.2 6.0 - 8.0 g/dL LAB CHEMISTRY METHOD 02/07/2024 4:21 PM [facility] Albumin 4.0 3.2 - 5.0 g/dL LAB CHEMISTRY METHOD 02/07/2024 4:21 PM [facility] Total Bilirubin 0.4 0.0 - 1.4 mg/dL LAB CHEMISTRY METHOD 02/07/2024 4:21 PM [facility] Blood Venous blood specimen / Unknown Venipuncture / Unknown 02/07/2024 9:45 AM EST 02/07/2024 9:45 AM EST Bk Otero MD LAB BLOOD ORDERABLES Final Resul t [facility] [address] [place] [address], * Hepatitis C Screening (08/10/2023) Pathologist [facility] Hepatitis C Screening AbstractedAbstracted Historical Provider HEALTH MAINTENANCE Final Result * Lipid panel (08/10/2023) LDL/HDL Ratio 3 0 - 4 Triglycerides 131 0 - 150 mg/dL Cholesterol 148 0 - 200 mg/dL HDL 47 >=40 mg/dL LDL Cholesterol 75 0 - 100 mg/dL Blood Venous blood specimen / Unknown us Historical Provider LAB BLOOD ORDERABLES Ana l Result from Last 3 Months or Most Recently Relevant to Health Maintenance Insurance [facility] Advance Directives * Full Code [...] currently active code status orders. Care Teams Date Pitter Relationship Specialty Start Date End Date Shani James FNP [address] [place] [phone] PCP - General Nurse Practitioner 07/12/24
--- OUTSIDE RECORDS SUMMARY | 2025-01-13 07:07 | XMS_ITS | Encounter Summary ---
Author Organization [facility] Address [address] [facility] [address] [place] [address] Phone Care Team Providers Care Transportation Clerk Name Role Phone Ned Manuel MD Unavailable Shaun Goodrich MD Unavailable Jenny Mcbride SHOEMAKER APPRENTICE Unavailable [phone] Jenny Mcbride SHOEMAKER APPRENTICE Primary Care Provider Jenny Mcbride SHOEMAKER APPRENTICE Primary Care Provider Luis Amin MD Unavailable Unknown, Unknown Primary Care Provider Maria Teresa baker Encounter Details Date Type Department Care Team (Late st Contact Info) Description 02/24/2018 Ancillary Orders [facility],Outside Imaging [address] [place] [address] System, Provider Not In, PhD [address] [address] Social History Tobacco Use Types Packs/Day Years [...] documented as of this encounter Care Teams Transportation Clerk Relationship Specialty Start Date End Date Jenny Mcbride, SHOEMAKER APPRENTICE [address] [place] [phone] PCP - General Family Medicine 05/26/17 09/20/19 Jenny Mcbride SHOEMAKER APPRENTICE [address] [place] [address] PCP - General Family Medicine 09/21/19 04/19/23 Unknown, Unknown, MD PCP - General 04/20/23 Ned Manuel MD [address] [place] [address] Historical LMR Provider 11/25/16 02/15/21 Shaun Goodrich MD [address] [place] [address] Historical LMR Provider 11/25/16 02/15/21 Jenny Mcbride, SHOEMAKER APPRENTICE [address] [place] [address] Historical LMR Provider 11/25/16 11/25/22 Luis Amin MD [address] [place] [address] [address] [place] [address] Gastroenterology 11/26/22 documented as of this encounter Additional Source Comments The information contained in this document represents components of the legal health record. It is not the complete legal health record.[facility]
--- OUTSIDE RECORDS SUMMARY | 2025-01-13 07:07 | XMS_ITS ---
Author Organization [facility] [place] [employer] Address [address] [place] [address] Phone Care Team Providers Care Enamel Buffer Name Role Phone Shani James Primary Care Provider [phone] Active Problems Problem Noted Date Diagnosed Date Primary localized osteoarthrosis of ankle and fo ot 07/06/2024 History of stress fracture 05/03/2024 Invasive ductal carcinoma of breast, female, right (CMS/HCC V24, CMS/HCC V28) 03/15/2024 Cancer Staging:Pathologic:Stage IA(pT1c, pN0, cM0, G2, ER+, VA+, HER2-, Oncotype DX score: 5) - Signed [...] panel; Future Coronary artery disease invo lving [place] coronary artery of [place] heart without angina pectoris 08/06/2023 Assessment & [...] 63-year-old woman presented to a hospital in [place] several months ago for evaluation of abrupt [...] 05/21/2017 Glaucoma of right eye 05/21/2017 Current Treatment and Therapy Plans No current plan information found. Past Treatment and Therapy Plans No past plan information found. Current Radiation Episodes * Radiation Therapy: BreastOverview* First Treatment Date Latest Treatment Date Treatment Site Technique Goal Episode Provider 06/14/2024 07/06/2024 Breast Curative Bridget Allen MD * Linked Problems Treatment Courses* Course 1 06/14/2024 - 07/06/2024 Treatment Sites Treatment Period Fraction Dose Fractions Total Dose Right Breast 06/14/2024 - 07/06/2024 267 / 267 cGy 4,272 / 4,272 cGy
--- OUTSIDE RECORDS SUMMARY | 2025-01-13 07:07 | XMS_ITS | Encounter Summary ---
Author Organization [facility] Address [address] [facility] [address] [place] [phone] Phone Care Team Providers Care Title I Director Name Role Phone Ned Manuel MD Unavailable [phone] Shaun Goodrich MD Unavailable [phone] Jenny Mcbride GASOLINE ENGINE INSPECTOR Unavailable [phone] Jneny Mcbride GASOLINE ENGINE INSPECTOR Primary Care Provider Jenny Mcbride GASOLINE ENGINE INSPECTOR Primary Care Provider Luis Amin MD Unavailable Unknown, Unknown Primary Care Provider Maria Teresa baker Encounter Details Date Type Department Care Team (Late st Contact Info) Description 02/24/2018 Ancillary Orders [facility],Outside Imaging [address] [place] [address] System, Provider Not In, PhD [address] [address] Social History Tobacco Use Types Packs/Day Years [...] documented as of this encounter Care Teams Title I Director Relationship Specialty Start Date End Date Jenny Mcbride, GASOLINE ENGINE INSPECTOR [address] [place] [id number] PCP - General Family Medicine 05/26/17 09/20/19 Jenny Mcbride GASOLINE ENGINE INSPECTOR [address] [place] [phone] PCP - General Family Medicine 09/21/19 04/19/23 Unknown, Unknown, MD PCP - General 04/20/23 Ned Manuel MD [address] [place] [address] Historical LMR Provider 11/25/16 02/15/21 Shaun Goodrich MD [address] [place] [id number] Historical LMR Provider 11/25/16 02/15/21 Jenny Mcbride GASOLINE ENGINE INSPECTOR [address] [place] [address] Historical LMR Provider 11/25/16 11/25/22 Luis Amin MD [address] [place] [address] [address] [place] [address] Gastroenterology 11/26/22 documented as of this encounter Additional Source Comments The information contained in this document represents components of the legal health record. It is not the complete legal health record.[facility]
--- OUTSIDE RECORDS SUMMARY | 2025-01-13 07:07 | XMS_ITS | Encounter Summary ---
Author Organization [facility] Address [address] [facility] [address] [place] [address] Phone Care Team Providers Care Director Sales Support Name Role Phone Ned Manuel MD Unavailable [phone] Shaun Goodrich MD Unavailable Jenny Mcbride TRUCK DRIVING Unavailable [phone] Jenny Mcbride TRUCK DRIVING Primary Care Provider Jenny Mcbride TRUCK DRIVING Primary Care Provider Luis Amin MD Unavailable Unknown, Unknown Primary Care Provider Maria Teresa baker Encounter Details Date Type Department Care Team (Late st Contact Info) Description 02/24/2018 Ancillary Orders [facility],Outside Imaging [address] [place] [address] System, Provider Not In, PhD [address] [address] Social History Tobacco Use Types Packs/Day Years [...] as of this encounter Care Teams Director Sales Support Relationship Specialty Start Date End Date Jenny Mcbride, TRUCK DRIVING [address] [place] [phone] PCP - General Family Medicine 05/26/17 09/20/19 Jenny Mcbride TRUCK DRIVING [address] [place] [id number] PCP - General Family Medicine 09/21/19 04/19/23 Unknown, Unknown, MD PCP - General 04/20/23 Ned Manuel MD [address] [place] [address] Historical LMR Provider 11/25/16 02/15/21 Shaun Goodrich MD [address] [place] [address] Historical LMR Provider 11/25/16 02/15/21 Jenny Mcbride TRUCK DRIVING [address] [place] [address] Historical LMR Provider 11/25/16 11/25/22 Luis Amni MD [address] [place] [address] [address] [place] [address] Gastroenterology 11/26/22 documented as of this encounter Additional Source Comments The information contained in this document represents components of the legal health record. It is not the complete legal health record.[facility]
[2025-01-13 07:32] LABS: Hematocrit 41.3 % (37.0-47.0); Hemoglobin 13.9 g/dl (12.0-16.0); Mean Corpuscular HGB Conc 33.7 g/dl (31.0-35.0); Mean Corpuscular Hemoglobin 32.0 pg (27.0-33.0); Mean Corpuscular Volume 95.2 fL (80.0-98.0); NRBC Abs Auto 0.000 X10*3/uL (0.0-0.012); NRBC Pct Auto 0.0 /100WBC (0.0-0.2); Platelet Count 184 X10*3/uL (160-400); Red Blood Count 4.34 X10*6/uL (4.20-5.50); White Blood Count 5.7 X10*3/uL (4.8-10.8)
[2025-01-13 08:03] LABS: Alanine Aminotransferase 34 U/L (0-31); Albumin Level 4.3 g/dL (3.5-5.0); Alkaline Phosphatase 141 U/L (39-117); Anion Gap 11 (12-20); Aspartate Amino Transferase 26 U/L (5-31); Blood Urea Nitrogen 14 mg/dL (9-16); Calcium 9.5 mg/dL (8.4-10.2); Carbon Dioxide 30 mmol/L (22-29); Chloride 108 mmol/L (96-108); Cholesterol 161 mg/dL (<200); Estimated Glomerular Filt Rate > 60; HDL Cholesterol 42 mg/dL (>40); Potassium 4.1 mmol/L (3.3-5.1); Sodium 145 mmol/L (135-145); Total Protein 6.7 g/dL (6.5-8.0); Triglycerides 133 mg/dL (<150)
== END 2025-01-13 07:05 | disposition home or self-care (01) ==
LOC: HO.LAB 07:04
PROVIDERS: PCP Nurse Practitioner Family; Visit Provider Nurse Practitioner Family
DX: I10 Essential (primary) hypertension (principal); E78.2 Mixed hyperlipidemia
CPT/HCPCS: 36415; 80053; 80061; 85027

== ENCOUNTER 2025-01-15 09:17 | Outpatient (AMB) | payer BC, SELFPAY ==
--- NOTE | 2025-01-15 09:19 | A.OFFPC_ITS ---
Vital Signs 01/15/25 09:24 Height 5 ft Weight 144 lb 6 oz BMI 28.2 BP 118/66 Blood Pressure Location Lt brachial Position Sitting Respiration 12 Pulse 81 Pulse Source Pulse Oximeter Temp 97.3 F Temp Source Oral Pulse Oximetry (%) 99 Oxygen Delivery Method Room Air Intake Visit Reasons: 6 mo 30 min routine chronic fu Intake Note: 6 Months routine follow up. Patient also needs refill on meds. Shareholder Required: No Allergies moxifloxacin (From Avelox) Allergy (Intermediate, Verified 01/15/25 10:04) Rash montelukast (From Singulair) Allergy (Mild, Verified 01/15/25 10:04) lip swelling Medication List - Last Reconciled 01/15/25 by Shani James, [facility]- albuterol sulfate 2.5 mg (3 mL) inhalation Q4-6H PRN albuterol sulfate 90 mcg/actuation 2 puffs PO Q4H PRN anastrozole 1 mg PO DAILY aspirin 81 mg PO DAILY atorvastatin 40 mg PO DAILY bimatoprost 0.01% (Lumigan) 1 drp ophthalmic (eye) DAILY clotrimazole-betamethasone 1-0.05 % appl topical cyanocobalamin (vitamin B-12) (Vitamin B-12) 1,000 mcg PO DAILY hydrochlorothiazide 12.5 mg PO DAILY ibuprofen 600 mg PO Q8H PRN ipratropium-albuterol 20-100 mcg/actuation (Combivent Respimat) 1 puff inhalation QID ketorolac 0.5% 1 drp ophthalmic-Right BID latanoprost 0.005% 1 drp ophthalmic-Right BEDTIME meclizine (Antivert) 50 mg PO DAILY PRN montelukast (Singulair) 10 mg PO BEDTIME pantoprazole 40 mg PO DAILY prednisolone acetate 1% 1 drp ophthalmic (eye) BID rabeprazole 20 mg PO QAM timolol maleate 0.5% 1 drp ophthalmic-Right BID Tobacco use date assessed: 01/15/25 Fall risk assessment: No Falls in past year Last assessed Fall Risk: 01/15/25 Dental Screening Dental Screen Date: 01/15/25 Did you have a dental visit in the last 12 months?: Yes Did you have a dental problem in the last 6 months where you did not have access to dental care?: No Was dental information given to patient?: Patient has dentist HPI HPI Comments History of Present Illness Details 64 y/o F with GERD, Mild underlying efrem roangiopathy. 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 2 children Girls (D[facility] and Lelia also my patients) Health Maintenance: Mammo Feb 2024 Tdap reports UTD in 10 years. PVC 20 done 2019 per report Dexa 2024, osteopenia Pap appt w/ [place] scheduled this year EGD Dr Amin 2023 Colon 2021 + polyp, Dr Amin Specialists: [facility] [place] [facility] KEO Ayala [employer] - [place] History of Present Illness The patient is a 64 year old female presenting with routine complex disease management. Left hip pain: - The patient continues to experience le ft hip pain, describing a feeling of pressure and soreness, especially when pressure is applied or when waking up. - She was seen by an orthopedist, and an x-ray of the hip was normal. 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 Chronic fatigue: - The patient reports experiencing signi ficant fatigue for the past several months, which she feels has become more recent and frequent. - She feels tired all the time, often go ing to bed shortly after her 4:00 PM dinner. - She reports instances of sudden, overw helming sleepiness during the day, requiring her to sleep for several hours, which has made her afraid to drive at times. - Her sleep is interrupted; she wakes up at night and sometimes has to re-eat to fall back asleep, often waking up early around 6:00 AM. - Recent lab work showed a normal CBC, e lectrolytes, and kidney function, with no evidence of diabetes. - Her alkaline phosphatase level has inc reased from a normal 115 in July to 141, while her ALT has improved from 39 to 34. - The patient has not discussed this fat igue with her oncologist, as the symptom onset occurred after her last visit. Vertigo: - The patient experiences dizziness with sudden movements, which is believed to be inner ear-driven vertigo. - The dizziness prevents her from doing certain activities. - She has never had vestibular therapy f or this condition. Asthma: - The patient has a history of mild asth ma and was previously prescribed a Combivent inhaler for shortness of breath, which has since resolved. - She has stopped using the Combivent in [facility] but still has it available. Hypertension: - The patient has a history of hypertens ion, managed with hydrochlorothiazide. - Her blood pressure reading today was 1 18/66 mmHg. Hyperlipidemia: - The patient has a history of hyperlipi demia and takes atorvastatin. - Her recent lab results show an improve ment in her cholesterol levels. History of breast cancer: - She has a history of breast cancer and is on anastrozole. - She sees an oncologist and is schedule d to see her surgeon in February. Glaucoma: - The patient has glaucoma and uses pres cription eye drops. - She has a [facility]. Past Medical History - Hyperlipidemia, treated with atorvasta tin. - Cerebral microangiopathy. - Hypertension, treated with hydrochloro thiazide. - Mild asthma, uses albuterol as needed. - History of breast cancer, on anastrozo le. - Glaucoma, treated with prescription ey e drops. - History of migraines years ago. Review of Systems - General: Reports chronic fatigue for m onths, with episodes of extreme sleepiness during the day. - Respiratory: Denies current shortness of breath. - Neurological: Reports dizziness with s udden movements. - Neurological: Denies headaches, though has a history of migraines. - Musculoskeletal: Reports ongoing left hip pain, describing it as soreness when pressure is applied. - Psychiatric/Sleep: Reports waking at n ight and sleeping poorly. Physical Exam General: Well developed, well nourished, in no acute distress. Appears stated age. Head: Normocephalic, atraumatic. Eyes: Pupils are equal, round and reactive to light and accommodation. Co njunctivae are clear. Lungs: Clear to auscultation bilaterally. No rales, rhonchi or wheeze noted. Good air flow in all mascorro. Heart: Regular rate and rhythm. No murmurs, click, rubs or gallops are noted. Blood pressure is 118/66. Abdomen: Bowel sounds present in all quadrants. The abdomen is soft, nontender, with no masses or organomegaly noted. No hernias are noted. Large low transverse surgical scar, LLQ are palpable adhesions ?? if this corresponds to the findings noted on xray as below. Musculoskeletal: Reproducible pain with palp over greater trochanter and iliac crest on L, no redness or warmth. Full ROM. Normal strength. Pulses: Peripheral pulses are equal and palpable bilaterally. Extremities: No clubbing, cyanosis nor edema is noted. Psych: Mood and affect appropriate. Patient reports excessive tiredness and fatigue. Results - Labs: - CBC, electrolytes, and kidney function are normal. - No evidence of diabetes. - Cholesterol levels are improved. - Alkaline phosphatase is elevated at 14 1, up from 115 in July. - ALT has improved to 34 from a previous level of 39. - Imaging: - A prior hip x-ray was unremarkable. Medical Decision Making The patient is a 64-year-old female here for management of multiple chronic conditions, presenting with new complaints of worsening fatigue over months, persistent left hip pain, and dizziness with sudden movements. Her lab work is reassuring in that her CBC, electrolytes, kidney function are normal, and there is no evidence of diabetes. Her cholesterol has also improved. However, there is a new elevation in her alkaline phosphatase to 141, up from 115 in July. While her ALT has improved, the elevated alkaline phosphatase in the context of her hip pain warrants further investigation to rule out a bony process, even though her prior hip x-ray was normal. Therefore, a CT scan of the pelvis and left hip will be ordered. The chronic fatigue is significant and impacting her daily life, including causing her to fear driving. While it could be multifactorial, including side effects from her medications or her age, it's important to rule out other causes. A home sleep study will be ordered to investigate for a primary sleep disorder. Her dizziness appears to be positional (vertigo) and driven by the inner ear, as it is provoked by sudden movements. A referral for vestibular therapy is appropriate to manage these symptoms. Her other chronic conditions, including hypertension and hyperlipidemia, are well-controlled on current medications, which will be continued. She has a history of asthma but is not currently symptomatic. She has an upcoming appointment with her eye doctor for glaucoma management and will follow up with her oncology team. We also discussed a free screening CT scan available to her in [place], and I encouraged her to proceed and provide the reports. Plan 1. Left Hip Pain - The patient's persistent left hip pain , coupled with a recent elevation in alkaline phosphatase, warrants further investigation despite a normal prior hip X-ray. - A CT scan of the pelvis and left hip w ill be ordered to further evaluate the etiology of her symptoms. 2. Chronic Fatigue - The patient reports debilitating fatig ue for several months that is interfering with her daily activities. - To investigate for an underlying sleep disorder, a home sleep study will be ordered. 3. Vertigo - The patient's dizziness is consistent with inner ear-driven vertigo, as it is precipitated by sudden movements. - A referral for vestibular therapy has been placed to help manage and improve these symptoms. 4. Hyperlipidemia - Cholesterol levels have improved. - Continue current dose of atorvastatin. 5. Hypertension - Blood pressure is well-controlled at 1 18/66 mmHg. - Continue current dose of hydrochloroth iazide. 6. Asthma - The patient's shortness of breath has resolved, and she has stopped using her Combivent inhaler. - She will continue to keep the inhaler for as-needed use. 7. Follow-Up - The patient was advised to schedule a six-month follow-up appointment for a physical. - A follow-up will be arranged sooner to discuss the results of the ordered CT scan and sleep study. Patient Instructions - You will receive a phone call from the radiology department to schedule your CT scan of your pelvis and left hip once it is approved by your insurance. - The hospital will call you to arrange for you to pick pulling machine tender a machine for a home sleep study. - We have put in an order for vestibular therapy to help with your dizziness; they will call you to schedule this for the new year. - Continue taking your current medicatio ns for blood pressure and cholesterol, as your numbers look good. - It is fine for you to participate in t he free heart and body scan in [place]; please get a copy of the report for my records. - Please book a follow-up appointment fo r a physical in six months. - I will call you to arrange an earlier follow-up visit once your test results are back. Consent The patient verbally consented to the plan for a CT scan of the pelvis and left hip, a home sleep study, and a referral for vestibular therapy after the rationale and goals for these evaluations were discussed. Patient was informed and verbally consented to the use of an ambient scribe for clinic note documentation during this visit. Total time spent caring for the patient today was 45 minutes. This includes time spent before the visit reviewing the chart, time spent during the visit, and time spent after the visit on documentation, reviewing laboratory results, diagnostic imaging, medications, performing a medically necessary evaluation, counseling on diagnoses, care coordination, ordering appropriate tests, ordering appropriate medications, review of tests performed by other providers, reporting test results with the patient, communication with other healthcare providers. [facility] Medical History (Updated 01/15/25 @ 10:06 by Shani James [facility]) Asthma Blockage of coronary artery of heart Breast cancer (~02/2024) DJD (degenerative joint disease) Eczema GERD (gastroesophageal reflux disease) Glaucoma Heart disease HTN (hypertension) Hx of mammogram (~02/2024) Osteopenia (~2024) Surgical History (Updated 07/11/24 @ 10:15 by Shani James [facility]) H/O colonoscopy (~2021) History of esophagogastroduodenoscopy (EGD) History of laparoscopic appendectomy Hx of breast augmentation Hx of breast implants, bilateral (~2007) Hx of cosmetic surgery Family History (Updated 07/11/24 @ 10:11 by Samy Henriquez MA) Father Asthma HTN (hypertension) Cardiovascular disease Mother Asthma HTN (hypertension) High cholesterol Sister Asthma Cardiovascular disease Brother Asthma Cardiovascular disease Social History (Updated 07/11/24 @ 09:49 by Samy Henriquez MA) Household Members: Spouse Both parents involved: No Caregiver staying overnight: No Housing: House Are you a primary property caretaker to a significant other at home: No Do you presently have visiting nurse or other home services: No 75 years or older and lives alone: No Alcohol intake: current Alcohol intake frequency: a few times a month Patient Tobacco Use Status: Never used Tobacco e-Cigarette/Vaping Use: Never Used Second Hand Smoke Exposure: No service: No Current occupational status: retired Current occupational exposures/hazards: No Cognitive needs: No Hearing needs: No Vision needs: Yes (wear glasses) Questionnaire PHQ-9 Over the last 2 weeks, how often have you been bothered by any of the following problems? 1. Little interest or pleasure in doing things: not at all 2. Feeling down, depressed, or hopeless: not at all 3. Trouble falling or staying asleep, or sleeping too much: not at all 4. Feeling tired or having little energy: not at all 5. Poor appetite or overeating: not at all 6. Feeling bad about yourself - or that you are a failure or have let yourself or your family down: not at all 7. Trouble concentrating on things, such as reading the newspaper or watching television: not at all 8. Moving or speaking so slowly that other people could have noticed. Or the opposite - being so fidgety or restless that you have been moving around a lot more than usual: not at all 9. Thoughts that you would be better off or of hurting yourself in some way: not at all Total score: 0 Depression Screening Interpretation: Negative Depression Screening Done: Yes 24035 - PHQ-9 Billing: Yes Source: Developed by Drs. Mohsen Aranda, Ninfa Barnhart, Jl Raymond and colleagues, with an educational maynor from [employer]. Thrive Questionnaire Date Thrive assessed: 01/15/25 I am a: Patient What is your living situation today?: I have a steady place to live Within the past 12 months, did the food you bought not last and you didn't have the money to get more?: Never true Within the past 12 months, did you worry whether your food would run out before you got money to buy more?: Never true Do you have trouble paying for medicines?: No Do you have trouble getting transportation to medical appointments?: No Do you have trouble paying your heating and electricity bill?: No Do you have trouble taking care of your child, family member or friend?: No Do you have trouble with day-to-day activities such as bathing, preparing meals, shopping, managing finances, etc.?: No Are you currently unemployed and looking for a job?: No Are you interested in more education?: No Please select the resources that you would like help with: None Currently or been in a relationship where the following occur: No concerns reported THRIVE Score: 0 ROSMERY-7 AMB Questionnaire ROSMERY-7 Date ROSMERY - 7 assessed: 01/15/25 Feeling nervous, anxious, or on edge: 0 = Not at all Not being able to stop or control worryin = Not at all Worrying too much about different things: 0 = Not at all Trouble relaxin = Not at all Being so restless that it is hard to sit still: 0 = Not at all Becoming easily annoyed or irritable: 0 = Not at all Feeling afraid as if something awful might happen: 0 = Not at all Total ROSMERY-7 score (0-4 normal; 5-9 mild; 10-14 moderate; 15-21 severe): 0 Source: Developed by Drs. Mohsen Aranda, Ninfa Barnhart, Jl Raymond and colleagues, with an educational maynor from [employer]. ROSMERY-7 Assessment Billing ROSMERY-7 Assessment Tool: ROSMERY-7 Assessment 71354 Physical exam (Primary Care) Vital Signs: Last Vital Signs Temp 97.3 F 01/15/25 09:24 Pulse 81 01/15/25 09:24 Resp 12 01/15/25 09:24 BP 118/66 01/15/25 09:24 Pulse Ox 99 01/15/25 09:24 Oxygen Delivery Method Room Air 01/15/25 09:24 BMI result Body Mass Index 28.2 Tobacco/Smoking Status: Tobacco use Status Tobacco use date assessed 01/15/25 01/15/25 09:25 Patient Tobacco Use Status Never used Tobacco 01/15/25 09:25 e-Cigarette/Vaping Use Never Used 01/15/25 09:25 PHQ-9: PHQ-9 Score PHQ-9: Total score 0 01/15/25 09:25 Depression Screening Interpretation: Negative Thrive Assessment: Date of Thrive Assessment Date Thrive assessed 01/15/25 01/15/25 09:25 Currently or been in a relationship where the following occur: No concerns reported Results Reviewed Results Reviewed: [address] [address] XRay Report Signed Patient: Ligia Anders MR#: [id number] : 1960 Acct:[id number] Age/Sex: 64 / F ADM Date: 10/28/24 Loc: HO.XRAY Attending Dr: Shani WHITAKER Ordering Physician: Shani James Date of Service: 10/28/24 Procedure(s): XR hip LT w PEL1V Accession Number(s): [id number] cc: Shani James~ Reason for Exam: M25.552 - Pain in left hip CLINICAL HISTORY: M25.552 - Pain in left hip 3 view, pelvis and left hip Comparison: None provided Findings: The bones are intact. No significant arthritic change. There are numerous calcific foci extending horizontally at the level of the upper pelvis. IMPRESSION: 1. No acute bony abnormality. 2. Numerous hyperdensities extending horizontally at the level of the upper pelvis. This could represent soft tissue calcifications or bowel contents. Laboratory 01/13/25 Result Units Range Interpretation Provider Comments White Blood Count 5.7 X10*3/uL (4.8-10.8) Red Blood Count 4.34 X10*6/uL (4.20-5.50) Hemoglobin 13.9 g/dl (12.0-16.0) Hematocrit 41.3 % (37.0-47.0) Mean Corpuscular Volume 95.2 fL (80.0-98.0) Mean Corpuscular Hemoglobin 32.0 pg (27.0-33.0) Mean Corpuscular Hemoglobin Concent 33.7 g/dl (31.0-35.0) Red Cell Distribution Width 12.4 % (11.0-16.0) Platelet Count 184 X10*3/uL (160-400) Mean Platelet Volume 10.6 fL (9.4-12.3) Nucleated RBC Absolute Count (auto) 0.000 X10*3/uL (0.0-0.012) Nucleated Red Blood Cells % (auto) 0.0 /100WBC (0.0-0.2) Sodium Level 145 mmol/L (135-145) Potassium Level 4.1 mmol/L (3.3-5.1) Chloride Level 108 mmol/L (96-108) Carbon Dioxide Level 30 mmol/L (22-29) High Anion Gap 11 (12-20) Low Blood Urea Nitrogen 14 mg/dL (9-16) Creatinine 0.70 mg/dL (0.5-1.4) Estimated Creatinine Clearance Calc Not Reportable Estimat Glomerular Filtration Rate > 60 Random Glucose 104 mg/dL (60-115) Calcium Level 9.5 mg/dL (8.4-10.2) Total Bilirubin 0.3 mg/dL (0.0-1.0) Aspartate Amino Transf (AST/SGOT) 26 U/L (5-31) Alanine Aminotransferase (ALT/SGPT) 34 U/L (0-31) High Alkaline Phosphatase 141 U/L (39-117) High Total Protein 6.7 g/dL (6.5-8.0) Albumin 4.3 g/dL (3.5-5.0) Triglycerides Level 133 mg/dL (<150) Cholesterol Level 161 mg/dL (<200) LDL Cholesterol, Calculated 93 mg/dL (<100) HDL Cholesterol 42 mg/dL (>40) Coding Level of Care Code Est Pt Level 5 (84848) Complex visit Add On G2211 Diagnoses Hypersomnia G47.10 Left hip pain M25.552 Elevated alkaline phosphatase level R74.8 Benign paroxysmal positional vertigo due to bilateral vestibular disorder H81.13 Laterality: bilateral Primary hypertension I10 Hypertension type: primary hypertension Mixed hyperlipidemia E78.2 Hyperlipidemia type: mixed hyperlipidemia Coronary artery disease involving telida coronary artery of telida heart without angina pectoris I25.10 Coronary Disease-Associated Artery/Lesion type: telida artery [place] vs. transplanted heart: telida heart Associated angina: without angina Microangiopathy I73.9 Glaucoma of both eyes, unspecified glaucoma type H40.9 Glaucoma type: unspecified Laterality: bilateral Pelvic pain R10.2 Malignant neoplasm of right female breast, unspecified estrogen receptor status, unspecified site of breast C50.911 Breast location: unspecified site of breast Estrogen receptor status: unspecified Patient sex: female Laterality: right Nonintractable headache, unspecified chronicity pattern, unspecified headache type R51.9 Headache type: unspecified Headache chronicity pattern: unspecified pattern Intractability: not intractable Mild intermittent asthma without complication J45.20 Asthma complication type: uncomplicated Additional Codes ROSMERY-7 Assessment Billing - ROSMERY-7 Assessment Tool: ROSMERY-7 Assessment 10412 ([id number]) PHQ-9 - 33661 - PHQ-9 Billing: Yes ([id number]) Assessment & Plan Assessment & Plan (1) Hypersomnia: Code(s): G47.10 - Hypersomnia, unspecified Category: Medical (2) Left hip pain: Code(s): M25.552 - Pain in left hip Category: Medical (3) Elevated alkaline phosphatase level: Onset Date: ~01/2025 Code(s): R74.8 - Abnormal levels of other serum enzymes Category: Medical (4) BPPV (benign paroxysmal positional vertigo): Code(s): H81.10 - Benign paroxysmal vertigo, unspecified ear Category: Medical Qualifiers: Laterality: bilateral Qualified Code(s): H81.13 - Benign paroxysmal vertigo, bilateral (5) HTN (hypertension): Code(s): I10 - Essential (primary) hypertension Category: Medical Qualifiers: Hypertension type: primary hypertension Qualified Code(s): I10 - Essential (primary) hypertension (6) Hyperlipidemia: Code(s): E78.5 - Hyperlipidemia, unspecified Category: Medical Qualifiers: Hyperlipidemia type: mixed hyperlipidemia Qualified Code(s): E78.2 - Mixed hyperlipidemia (7) CAD (coronary artery disease): Code(s): I25.10 - Atherosclerotic heart disease of telida coronary artery without angina pectoris Category: Medical Qualifiers: Coronary Disease-Associated Artery/Lesion type: telida artery [place] vs. transplanted heart: telida heart Associated angina: without angina Qualified Code(s): I25.10 - Atherosclerotic heart disease of telida coronary artery without angina pectoris (8) Microangiopathy: Comment: Mild underlying microangiopathy. (brain CT 2022) on statin Code(s): I73.9 - Peripheral vascular disease, unspecified Category: Medical (9) Glaucoma: Code(s): H40.9 - Unspecified glaucoma Category: Medical Qualifiers: Glaucoma type: unspecified Laterality: bilateral Qualified Code(s): H40.9 - Unspecified glaucoma (10) Pelvic pain: Code(s): R10.2 - Pelvic and perineal pain Category: Medical (11) Breast cancer: Onset Date: ~02/2024 Comment: managed by Lashae Mota breast carcinoma in-situ s/p radiation completed april 2024 and lumpectomy On anastrazole Code(s): C50.919 - Malignant neoplasm of unspecified site of unspecified female breast Category: Medical Qualifiers: Breast location: unspecified site of breast Estrogen receptor status: unspecified Patient sex: female Laterality: right Qualified Code(s): C50.911 - Malignant neoplasm of unspecified site of right female breast (12) Headache: Code(s): R51.9 - Headache, unspecified Category: Medical Qualifiers: Headache type: unspecified Headache chronicity pattern: unspecified pattern Intractability: not intractable Qualified Code(s): R51.9 - Headache, unspecified (13) Mild intermittent asthma: Code(s): J45.20 - Mild intermittent asthma, uncomplicated Category: Medical Qualifiers: Asthma complication type: uncomplicated Qualified Code(s): J45.20 - Mild intermittent asthma, uncomplicated Plan .. Orders: Orders RT home sleep study Today G47.10 - Hypersomnia, unspecified CT pelvis wo/w IV con Today M25.552 - Pain in left hip, R10.2 - Pelvic and perineal pain, R74.8 - Abnormal levels of other serum enzymes CT hip LT wo IV con Today M25.552 - Pain in left hip, R74.8 - Abnormal levels of other serum enzymes PT Evaluation and Treatment Today H81.13 - Benign paroxysmal vertigo, bilateral Lipid Panel 6 Months E78.2 - Mixed hyperlipidemia, I10 - Essential (primary) hypertension TSH reflex Free T4 6 Months E78.2 - Mixed hyperlipidemia, I10 - Essential (primary) hypertension Complete Blood Count no Diff 6 Months E78.2 - Mixed hyperlipidemia, I10 - Essential (primary) hypertension Comprehensive Met. Panel 6 Months E78.2 - Mixed hyperlipidemia, I10 - Essential (primary) hypertension Hemoglobin A1c 6 Months E78.2 - Mixed hyperlipidemia, I10 - Essential (primary) hypertension Microalbumin, Random (w Creat) 6 Months E78.2 - Mixed hyperlipidemia, I10 - Essential (primary) hypertension Vitamin B12 and Folate 6 Months E78.2 - Mixed hyperlipidemia, I10 - Essential (primary) hypertension Vitamin D 25-OH Total 6 Months E78.2 - Mixed hyperlipidemia, I10 - Essential (primary) hypertension Medications: New hydrochlorothiazide 12.5 mg PO DAILY 90 caps 2RF
[2025-01-15 09:24] VITALS: BP 118/66; PULSE 81; RESP 12; TEMP 36.3; O2SAT 99; BMI 28.2
== END 2025-01-15 10:17 | disposition home or self-care (01) ==
LOC: HO.HMCFM 09:18
PROVIDERS: PCP Nurse Practitioner Family; Visit Provider Nurse Practitioner Family
DX: G47.10 Hypersomnia, unspecified (principal); M25.552 Pain in left hip; C50.911 Malignant neoplasm of unspecified site of right female breast; R74.8 Abnormal levels of other serum enzymes; H81.13 Benign paroxysmal vertigo, bilateral; I10 Essential (primary) hypertension; E78.2 Mixed hyperlipidemia; I25.10 Atherosclerotic heart disease of native coronary artery without angina pectoris; I73.9 Peripheral vascular disease, unspecified; H40.9 Unspecified glaucoma; R10.22 Pelvic and perineal pain left side; R51.9 Headache, unspecified; J45.20 Mild intermittent asthma, uncomplicated

== ENCOUNTER → 2025-01-15 09:17 | Outpatient (BNVA) | payer BC, SELFPAY | PROVIDERS: PCP Nurse Practitioner Family; Visit Provider Nurse Practitioner Family | DX: G47.10 Hypersomnia, unspecified (principal); M25.552 Pain in left hip; R74.8 Abnormal levels of other serum enzymes; H81.13 Benign paroxysmal vertigo, bilateral; I10 Essential (primary) hypertension; E78.2 Mixed hyperlipidemia; I25.10 Atherosclerotic heart disease of native coronary artery without angina pectoris; I73.9 Peripheral vascular disease, unspecified; H40.9 Unspecified glaucoma; R10.20 Pelvic and perineal pain unspecified side; C50.911 Malignant neoplasm of unspecified site of right female breast; R51.9 Headache, unspecified; J45.20 Mild intermittent asthma, uncomplicated | CPT/HCPCS: 96127 ==